=== PATIENT | male | born 1960 | race Caucasian/White ===

== ENCOUNTER → 2017-07-12 16:32 | Outpatient (CLI) | payer OTHER, SELFPAY ==
[2017-07-12 17:58] LABS: Microalbumin,Random Urine 14.6 mg/L (NO RANGE EST.); Microalbumin:Creatinine Ratio 13.9 mg/g CRE (<30 mg/g CRE)
== END ==
PROVIDERS: Family Provider Family Medicine Geriatric Medicine; PCP Family Medicine Geriatric Medicine; Visit Provider Internal Medicine Nephrology
DX: N18.2 Chronic kidney disease, stage 2 (mild) (principal)
CPT/HCPCS: 82043; 82570

== ENCOUNTER → 2017-07-14 15:57 | Outpatient (CLI) | payer OTHER, SELFPAY ==
--- NOTE | 2017-07-14 16:00 | US_ITS ---
STUDY: RENAL ULTRASOUND - COMPLETE REASON FOR EXAM: Male, 57 years old. Chronic renal failure TECHNIQUE: Ultrasound evaluation of the kidneys was performed with real-time and static locke-scale imaging. COMPARISON: None. FINDINGS: RIGHT KIDNEY: Normal location of the right kidney, which is normal in size. The right kidney measures 11.3 x 5.5 x 5.2 cm. There is a normal cortex of the right kidney. The renal cortex measures 1.5 cm. There is no right renal mass or cyst. There are no right renal calculi. There is no right hydronephrosis. DISTAL RIGHT URETER: There is non-visualization of the distal right ureter. There is no demonstrated right ureterovesical junction calculus. There is a visualized right ureteral jet. LEFT KIDNEY: Normal location of the left kidney, which is normal in size. The left kidney measures 11.2 x 4.6 x 5.6 cm. There is a normal cortex of the left kidney. The renal cortex measures 1.4 cm. There is no left renal mass or cyst. There are no left renal calculi. There is no left hydronephrosis. DISTAL LEFT URETER: There is non-visualization of the distal left ureter. There is no demonstrated left ureterovesical junction calculus. There is a visualized left ureteral jet. BLADDER: There is a normal wall thickness of the distended urinary bladder. There is no demonstrated mass within the urinary bladder. There are no demonstrated bladder calculi. US/Kidney and Bladder IMPRESSION: Normal ultrasound of the kidneys and urinary bladder. Electronically Signed: Farhad Sanchez MD at 18:14 EST , Service support ,
== END ==
PROVIDERS: Family Provider Family Medicine Geriatric Medicine; PCP Family Medicine Geriatric Medicine; Visit Provider Internal Medicine Nephrology
DX: N18.2 Chronic kidney disease, stage 2 (mild) (principal)
CPT/HCPCS: 76770

== ENCOUNTER → 2017-08-16 16:42 | Outpatient (CLI) | payer OTHER, SELFPAY ==
--- NOTE | 2017-08-16 | LES_PTH ---
PATIENT: MONICA AHMADI LOC: [facility] U#:[id number] AGE/SX: 64/M ROOM: RE08/16/[address]: Dr. Júnior Armstrong MD : [id number] BED: DIS: SPEC #: [id number] RECD: 08/17/17 08:00 STATUS: BROOKLYNN MANN #: [id number] JADA: 08/16/17 00:[address]: Júnior Armstrong Chi DEPT: SURGICAL PATHOLOGY RECD BY: Rohan Sommers Tissues: Skin of buttock, NOS Procedures: Surgery Specimen Level IV HEADER OPERATION: Not noted PRE-OP DIAGNOSIS: Right buttock lesion TISSUE SUBMITTED: Right buttock MICROSCOPIC DIAGNOSIS Right buttock lesion, shave biopsy: Benign verrucous keratosis with focal seborrheic keratosis-like features and hyperkeratosis. Negative for malignancy. SJ:indy 08/18/17 MICROSCOPIC DESCRIPTION Slides are reviewed. GROSS DESCRIPTION Received in fixative is one container labeled with the patient's name and designated right lower buttock cheek. The specimen consists of a light barreto shave biopsy of skin measuring 2 x 0.8 x 0.1 cm. The specimen is inked, bisected and totally submitted in one cassette. / AM:indy 08/17/17 TC:5 CPT: 67770
== END ==
PROVIDERS: Family Provider Family Medicine Geriatric Medicine; PCP Family Medicine Geriatric Medicine; Visit Provider Family Medicine Geriatric Medicine
DX: L98.9 Disorder of the skin and subcutaneous tissue, unspecified (principal); R68.83 Chills (without fever)
CPT/HCPCS: 87633; 88305

== ENCOUNTER → 2017-08-21 16:08 | Outpatient (CLI) | payer OTHER, SELFPAY ==
[2017-08-21 17:17] LABS: Absolute Lymphocyte Count 1.98 X10^3/ul (0.83-4.51); Absolute Neutrophil Count 7.5 X10^3/uL (2.0-7.7); Basophil# 0.02 X10^3/uL; Basophil% 0.2 % (0-1); Eosinophil# 0.01 X10^3/uL; Eosinophils% 0.1 % (0-5); Hematocrit 45.6 % (40-54); Hemoglobin 15.3 g/dl (13.0-16.5); Lymphocyte # 1.98 X10^3/ul (4.0); Lymphocyte % 18.6 % (19-41); Mean Corp Hgb Conc 33.6 g/gl (32-36); Mean Corpuscular Hgb 30.8 pg (27.0-32.0); Mean Corpuscular Volume 91.8 fL (80-94); Mean Platelet Vol. 10.9 fl (6.2-12.0); Monocyte# 0.99 X10^3/uL; Monocyte% 9.3 % (0-10); Neutrophil # 7.53 X10^3/uL (2.7-7.7); Neutrophil % 70.7 % (47-70); Platelet Count 241 K/mm3 (150-450); RBC Distribution Width CV 12.3 % (11.6-14.6); RBC Distribution Width SD 40.5 fl (35.1-43.9); Red Blood Count 4.97 M/mm3 (4.6-6.2); White Blood Count 10.7 K/mm3 (4.4-11.0)
[2017-08-21 17:24] LABS: ALB/GLOB Ratio 1.1 RATIO (0.9-2.4); AST(SGOT) 21 U/L (15-37); Alanine Aminotransfer ALT/SGPT 65 U/L (16-61); Albumin, Serum 3.8 g/dL (3.2-5.0); Alkaline Phosphatase 137 U/L (45-117); Anion Gap 10 (5-15); BUN 23 mg/dL (7-18); BUN/Creat Ratio 19.3 RATIO (10-20); Calcium,Total 8.3 mg/dL (8.5-10.1); Chloride 107 mmol/L (98-107); Creatinine, Serum 1.19 mg/dL (0.70-1.30); EST Glomerular Filtration Rate 67 mL/min (>60); Est Glom Filt Rate - Afr Amer 82 mL/min (>60); Globulin 3.5 g/dL (2.2-4.2); Glucose 177 mg/dL (74-106); Potassium 4.1 mmol/L (3.5-5.1); Protein, Total 7.3 g/dL (6.4-8.2); Sodium Level 142 mmol/L (136-145)
[2017-08-21 17:25] LABS: Vitamin D,25 Hydroxy 22.2 ng/mL (29.95-100.01)
[2017-08-21 17:58] LABS: POSITIVE COUNT NO; POSITIVE DIFFERENTIAL NO; POSITIVE MORPHOLOGY NO
[2017-08-22 09:59] LABS: PSA,Total - Annual Screen 0.42 ng/mL (0.00-4.00)
[2017-08-23 11:15] LABS: Hep C Antibodies <0.1 s/co ratio (0.0-0.9)
== END ==
PROVIDERS: Family Provider Family Medicine Geriatric Medicine; PCP Family Medicine Geriatric Medicine; Visit Provider Family Medicine Geriatric Medicine
DX: E11.9 Type 2 diabetes mellitus without complications (principal); E55.9 Vitamin D deficiency, unspecified; I10 Essential (primary) hypertension; F52.8 Other sexual dysfunction not due to a substance or known physiological condition; Z12.5 Encounter for screening for malignant neoplasm of prostate; Z13.89 Encounter for screening for other disorder
CPT/HCPCS: 36415; 80053; 82306; 84153; 84403; 84443; 85025; 86803; G0103

== ENCOUNTER → 2017-09-27 09:04 | Outpatient (CLI) | payer OTHER, SELFPAY ==
[2017-09-27 13:10] LABS: Absolute Lymphocyte Count 1.86 X10^3/ul (0.83-4.51); Absolute Neutrophil Count 4.2 X10^3/uL (2.0-7.7); Basophil# 0.03 X10^3/uL; Basophil% 0.4 % (0-1); Eosinophil# 0.12 X10^3/uL; Eosinophils% 1.7 % (0-5); Hematocrit 46.6 % (40-54); Hemoglobin 15.2 g/dl (13.0-16.5); Lymphocyte # 1.86 X10^3/ul (4.0); Lymphocyte % 26.5 % (19-41); Mean Corp Hgb Conc 32.6 g/gl (32-36); Mean Corpuscular Volume 91.9 fL (80-94); Monocyte# 0.74 X10^3/uL; Monocyte% 10.5 % (0-10); Neutrophil # 4.24 X10^3/uL (2.7-7.7); Neutrophil % 60.5 % (47-70); POSITIVE COUNT NO; POSITIVE DIFFERENTIAL NO; POSITIVE MORPHOLOGY NO; Platelet Count 210 K/mm3 (150-450); RBC Distribution Width CV 12.6 % (11.6-14.6); RBC Distribution Width SD 42.1 fl (35.1-43.9); Red Blood Count 5.07 M/mm3 (4.6-6.2)
[2017-09-27 13:42] LABS: ALB/GLOB Ratio 1.1 RATIO (0.9-2.4); AST(SGOT) 24 U/L (15-37); Alanine Aminotransfer ALT/SGPT 63 U/L (16-61); Albumin, Serum 3.8 g/dL (3.2-5.0); Alkaline Phosphatase 116 U/L (45-117); Anion Gap 8 (5-15); BUN 23 mg/dL (7-18); BUN/Creat Ratio 19.8 RATIO (10-20); Calcium,Total 8.5 mg/dL (8.5-10.1); Chloride 106 mmol/L (98-107); Creatinine, Serum 1.16 mg/dL (0.70-1.30); EST Glomerular Filtration Rate 69 mL/min (>60); Est Glom Filt Rate - Afr Amer 84 mL/min (>60); Globulin 3.4 g/dL (2.2-4.2); Glucose 89 mg/dL (74-106); Phosphorus 3.2 mg/dL (2.5-4.9); Potassium 4.3 mmol/L (3.5-5.1); Protein, Total 7.2 g/dL (6.4-8.2); Sodium Level 142 mmol/L (136-145); Thyroid Stim Hormone (TSH) 1.39 uIU/mL (0.358-3.74)
== END ==
PROVIDERS: Family Provider Family Medicine Geriatric Medicine; PCP Family Medicine Geriatric Medicine; Visit Provider Internal Medicine Nephrology
DX: N18.2 Chronic kidney disease, stage 2 (mild) (principal); R53.83 Other fatigue
CPT/HCPCS: 36415; 80053; 84100; 84443; 85025

== ENCOUNTER 2017-09-29 13:23 | Emergency (ER) | payer OTHER, SELFPAY ==
[2017-09-29 13:25] VITALS: BP 151/96; PULSE 82; RESP 16; TEMP 36.8; O2SAT 95; BMI 37.3
--- NOTE | 2017-09-29 13:48 | RAD_ITS ---
STUDY: X-RAY - UNILATERAL RIBS ( LEFT ) WITH CHEST REASON FOR EXAM: Male, 57 years old. MID AND LOW LEVEL LATERAL LEFT RIB PAIN TECHNIQUE - RIBS: 4 view(s) of the ribs. TECHNIQUE - CHEST: Single PA view of the chest. COMPARISON: April 26, 2017 FINDINGS - RIBS: Normal visualized ribs without a demonstrated fracture. FINDINGS - CHEST: The lungs are again underexpanded with right basilar mild atelectasis/compression of lung markings.. There is no demonstrated pleural abnormality. Normal size heart. Normal mediastinum and evaristo. Normal visualized pulmonary arteries. Normal visualized aortic arch and descending thoracic aorta. Normal visualized thoracic spine. Normal visualized ribs, clavicles, and shoulders. There is no demonstrated abnormality of the visualized soft tissue structures of the upper abdomen. RAD/Ribs Uni Min 3V w/PA Chest IMPRESSION: RIBS: Normal x-ray examination of the ribs. CHEST: No acute disease is demonstrated. Electronically Signed: Serenity Meade MD at 14:45 EDT , Service support ,
--- NOTE | 2017-09-29 15:01 | ED.DCSUM_ITS ---
- ER Visit Summary Date of Service: 09/29/17 Chief Complaint: Chest pain History of Present Illness: The patient is a [address] Armstrong. He reports that he was on his riding lawnmower and leaning to the left continuous pickling line pickler a stick. His left lower ribs were against the rail of the car and he heard a pop. States that since that time he has had a sharp pain is 10 out of 10 at worst and 8 out of 10 currently. Is worsened by laying down or bending over. He is taken Aleve with minimal relief. States it is relieved by rest. He reports he feels mildly short of breath at times when the pain is so severe that it seems to take his breath away. Physical Examination: Vitals: Stable. Afebrile. General: Well-nourished and well-developed. Head: Normocephalic atraumatic. Neck: Supple, no lymphadenopathy. No JVD. Nontender. Cardiovascular: Regular rate and rhythm. No murmurs. Respiratory: No respiratory distress. Clear to auscultation bilaterally. Moderate tenderness palpation over the lower ribs on the left. No contusion. No pain with anterior posterior compression of his chest. Abdominal: Soft, nontender, nondistended, normal bowel sounds. No guarding, rebound, or peritoneal signs. Back: Nontender. Extremities: Nontender, no edema. Skin: Normal color, no rash. Neurologic: Alert and oriented ?3. Cranial nerves II through XII are intact. Normal strength and sensation. Psych: Normal affect. Test Results: Left rib series is negative. Emergency Department Course and Treatment: Patient refused pain medications and is resting comfortably. Treatment Plan: He will be discharged with an incentive spirometer and [place]. Instructed to follow-up Dr. Qureshi in 1 week if not improving. Return to the emergency department for any worsening symptoms. Disposition: To home in improved and stable condition. Impression: 1. Rib contusions on left. This note was generated with [employer] dictation software. It may contain incorrect words, spelling, and punctuation that were not noted in review of the chart prior to signing ED Disposition - Plan for ED Patient: Disposition: Home or Assisted Living Chief Complaint: Chest Other Instructions: ED Contusion Vs Minor Fx Rib Prescriptions: Hydrocodone/Acetaminophen [[place] 5-325 Tablet] 1 - 2 each PO 4X/DAY PRN PRN 5 Days #20 tablet PRN Reason: Pain Referrals: Júnior Armstrong Chi, MD [Primary Care Provider] - 1 Week if not improving
[2017-09-29 15:14] VITALS: PULSE 79; RESP 17; O2SAT 100
== END 2017-09-29 15:14 | disposition home or self-care (01) ==
PROVIDERS: Emergency Provider Emergency Medicine; Family Provider Family Medicine Geriatric Medicine; PCP Family Medicine Geriatric Medicine
DX: S20.212A Contusion of left front wall of thorax, initial encounter (principal); X50.1XXA Overexertion from prolonged static or awkward postures, initial encounter; Y93.H2 Activity, gardening and landscaping; Y92.9 Unspecified place or not applicable; Y99.9 Unspecified external cause status; E11.9 Type 2 diabetes mellitus without complications; I10 Essential (primary) hypertension; Z79.01 Long term (current) use of anticoagulants; Z79.899 Other long term (current) drug therapy; Z86.73 Personal history of transient ischemic attack (TIA), and cerebral infarction without residual deficits
CPT/HCPCS: 71101; 99282

== ENCOUNTER 2017-12-12 18:45 | Emergency (ER) | payer OTHER, SELFPAY ==
[2017-12-12] VITALS (8 sets, daily range): BP systolic 114–142; BP diastolic 74–96; PULSE 59–81; RESP 13–19; TEMP 36.6; O2SAT 92–97; BMI 37.2
--- NOTE | 2017-12-12 19:20 | CT_ITS ---
STUDY: CT BRAIN WITHOUT CONTRAST REASON FOR EXAM: Male, 57 years old. Blurred vision. Loss of balance and headache beginning tonight. Similar episode 5 days ago. History of CVA. RADIATION DOSAGE (If Supplied By Facility): CTDIvol = ( 44.99 ) mGy, DLP = ( 829.85 ) mGycm TECHNIQUE: Transaxial CT imaging of the brain was performed without administration of intravenous contrast material. Individualized dose optimization techniques were used for this CT. COMPARISON: May 03, 2017. FINDINGS: Normal soft tissue structures. Normal calvarium. Normal size ventricles and extra-axial spaces for the patient's age. There is a remote right occipital lobe infarct. There is a minimal infarct along the inferior aspect of the left occipital lobe. Question remote right thalamic lacunar infarct. Normal basal ganglia and left thalamus. Normal brainstem. Normal cerebellum. There is no intracranial hemorrhage. There are no findings of an acute ischemic infarction. Normal visualized paranasal sinuses. CT/Brain/Head without Contrast IMPRESSION: Old infarcts without evidence of acute intracranial or calvarial abnormality. There is no major interval change. Electronically Signed: Donovan Quiroz DO at 19:55 EDT Tel [phone], Service support ,
--- NOTE | 2017-12-12 19:20 | EKG12_ITS ---
Test Reason : HEADACHE Blood Pressure : / mmHG Vent. Rate : 068 BPM Atrial Rate : 068 BPM P-R Int : 178 ms QRS Dur : 124 ms QT Int : 420 ms P-R-T Axes : 020 -37 018 degrees QTc Int : 446 ms Normal sinus rhythm Left axis deviation Left ventricular hypertrophy with QRS widening Abnormal ECG Confirmed by PENNY MEDINA, URSULA ([id number]), tape editor ALEX ASHTON ([id number]) on 12/14/2017 11:50:15 AM Referred By: SHIRA Confirmed By:URSULA FRANCIS MD
[2017-12-12] MEDS: Ondansetron 4 MG/2 ML Vial IV (19:36)
[2017-12-12] MEDS: Morphine 4 MG/ML Syringe IV (19:36)
[2017-12-12] MEDS: 0.9% Normal Saline 1,000 ML 100 ML IV (19:36)
[2017-12-12 19:41] LABS: Absolute Lymphocyte Count 2.48 X10^3/ul (0.83-4.51); Absolute Neutrophil Count 5.3 X10^3/uL (2.0-7.7); Basophil# 0.02 X10^3/uL; Basophil% 0.2 % (0-1); Eosinophil# 0.33 X10^3/uL; Eosinophils% 3.7 % (0-5); Hematocrit 47.9 % (40-54); Hemoglobin 15.5 g/dl (13.0-16.5); Lymphocyte # 2.48 X10^3/ul (4.0); Lymphocyte % 27.6 % (19-41); Mean Corp Hgb Conc 32.4 g/gl (32-36); Mean Corpuscular Hgb 29.9 pg (27.0-32.0); Mean Corpuscular Volume 92.5 fL (80-94); Mean Platelet Vol. 10.7 fl (6.2-12.0); Monocyte% 8.9 % (0-10); Neutrophil # 5.33 X10^3/uL (2.7-7.7); Neutrophil % 59.3 % (47-70); Platelet Count 225 K/mm3 (150-450); RBC Distribution Width CV 13.5 % (11.6-14.6); RBC Distribution Width SD 45.1 fl (35.1-43.9); Red Blood Count 5.18 M/mm3 (4.6-6.2)
[2017-12-12 19:48] LABS: Partial Thromboplast Time 29.2 Seconds (24.1-36.2); Prothrombin Time (Protime)PT. 13.5 SECONDS (11.7-14.9)
[2017-12-12 19:51] LABS: POSITIVE COUNT NO; POSITIVE DIFFERENTIAL NO; POSITIVE MORPHOLOGY NO
[2017-12-12 19:52] LABS: Anion Gap 4 (5-15); BUN 24 mg/dL (7-18); BUN/Creat Ratio 17.5 RATIO (10-20); Calcium,Total 8.9 mg/dL (8.5-10.1); Chloride 105 mmol/L (98-107); Creatinine, Serum 1.37 mg/dL (0.70-1.30); EST Glomerular Filtration Rate 57 mL/min (>60); Est Glom Filt Rate - Afr Amer 69 mL/min (>60); Estimated Creatinine Clearance 56.96 ml/min; Glucose 139 mg/dL (74-106); Potassium 4.2 mmol/L (3.5-5.1); Sodium Level 140 mmol/L (136-145)
[2017-12-12 20:01] LABS: Bedside Glucose 100 mg/dL (70-110)
--- NOTE | 2017-12-12 21:08 | CT_ITS ---
STUDY: CTA NECK WITH CONTRAST REASON FOR EXAM: Male, 57 years old. Headache. Blurred vision. RADIATION DOSAGE (If Supplied By Facility): CTDIvol = ( 18.42 ) mGy, DLP = ( 755.97 ) mGycm TECHNIQUE: CT angiography with multi-detector data acquisition was performed from the aortic arch to the skull base following intravenous administration of 100ML ml of Isovue 370 contrast. MIP images were reconstructed from the axial data set. Post-processing of the angiographic images was performed, with multiplanar reformation and 3D reconstruction. Individualized dose optimization techniques were used for this CT. COMPARISON: None. FINDINGS: AORTIC ARCH: Minimal atherosclerotic changes of the aortic arch. Normal origins of the brachiocephalic, left common carotid, and left subclavian arteries. RIGHT CAROTID ARTERIES: Normal right common carotid artery (CCA). Normal right common carotid bulb. Normal origin of the right internal carotid (ICA) artery without a hemodynamically significant stenosis. Normal visualized cervical portion of the right internal carotid artery. Normal origin of the right external carotid artery (ECA). LEFT CAROTID ARTERIES: Normal left common carotid artery (CCA). There is a small focus of calcification in the left carotid bulb without stenosis. Normal origin of the left internal carotid (ICA) artery without a hemodynamically significant stenosis. Normal visualized cervical portion of the left internal carotid artery. Normal origin of the left external carotid artery (ECA). VERTEBRAL ARTERIES: Normal bilateral vertebral arteries. CT/CTA Neck W/WO Contrast IMPRESSION: Essentially normal bilateral cervical carotid and vertebral arteries. Electronically Signed: Donovan Quiroz DO at 22:37 EDT Tel [phone], Service support ,
--- NOTE | 2017-12-12 21:08 | CT_ITS ---
STUDY: CTA OF THE BRAIN REASON FOR EXAM: Male, 57 years old. Headache. Blurred vision. RADIATION DOSAGE (If Supplied By Facility): CTDIvol = ( 18.42 ) mGy, DLP = ( 755.97 ) mGycm TECHNIQUE: CT angiography was performed with a multi-detector CT scanner. Data acquisition was obtained from the skull base through the vertex following intravenous administration of 100 ml of Isovue 37. MIP images were reconstructed from the axial data set. Post-processing of the angiographic images was performed, with multiplanar reformation and 3D reconstruction. Individualized dose optimization techniques were used for this CT. COMPARISON: None. FINDINGS: Normal bilateral petrous carotid arteries. There is calcified plaque formation of the right cavernous carotid artery, without a cross-sectional luminal stenosis. There is calcified plaque formation of the left cavernous carotid artery, with a mild stenosis (less than 50%). Normal right A1 segments of the anterior cerebral artery. Normal left A1 segments of the anterior cerebral artery. Normal intact anterior communicating artery (ACOM). Normal bilateral A2 segments of the anterior cerebral arteries. Normal right M1 and M2 segments of the middle cerebral arteries, with a normal M1 bifurcation. Small focus of calcification along the distal M1 segment without stenosis. Normal left M1 and M2 segments of the middle cerebral arteries, with a normal M1 bifurcation. There is non-visualization of the right posterior communicating artery (PCOM). There is non-visualization of the left posterior communicating artery (PCOM). Normal bilateral vertebral arteries. There is focal narrowing of the proximal basilar artery. More normal diameter distally. There is no evidence of plaque or other indication for the narrowing. The visualized bilateral superior cerebellar (SCA) arteries are normal. Normal bilateral P1, P2 and visualized P3 segments of the posterior cerebral arteries. There is no demonstrated aneurysm of the e[place] of Pimentel. There is no demonstrated abnormality of the visualized brain. CT/CTA Head W/WO Contrast IMPRESSION: 1. Normal e[place] of [place]iment[place] without a demonstrated aneurysm. 2. 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 The distal aorta is unremarkable. 3. Hemodynamically insignificant plaque in the left cavernous carotid. Electronically Signed: Donovan Quiroz DO at 22:32 EDT Tel [phone], Service support ,
[2017-12-12] MEDS: DiphenhydrAMINE 50 MG/ML Syringe 25 MG IV (21:35)
[2017-12-12] MEDS: 0.9% Normal Saline 1,000 ML 999 ML IV (21:38)
[2017-12-12] MEDS: Ketorolac 30 MG/ML Syringe IV (21:38)
[2017-12-12] MEDS: Metoclopramide 10 MG/2 ML Vial IV (21:38)
--- NOTE | 2017-12-12 23:00 | PCM.HP.STD ---
History of Present Illness Date of Admission: 12/12/17 The patient is a 57 year old M [] afib w/ occipital CVA, blind x 3 weeks, improved, 6 days prior, vision blurred 6-8 minutes, but never returned to his normal, off balance. swishing in his ears, R>L when he turns his head L hemianopsia, L superior quandrant is chronic Neurology Past Medical History Past Medical History (Chronic Problems): Chronic Problems (Last Updated 06/12/17 @ 17:10 by Lola Mitchell) Non-rheumatic tricuspid valve insufficiency (Chronic) Nonrheumatic mitral valve insufficiency (Chronic) Stroke determined by clinical assessment (Chronic) Diabetes mellitus (Chronic) Chronic GERD (Chronic) HTN (hypertension) (Chronic) Medical History: Medical History (Last Updated 06/12/17 @ 17:10 by Lola Mitchell) Stroke determined by clinical assessment (Chronic) I63.9 Diabetes mellitus (Chronic) E11.9 Chronic GERD (Chronic) K21.9 Hyperlipidemia (Acute) E78.5 Paroxysmal atrial fibrillation (Acute) I48.0 HTN (hypertension) (Chronic) I10 Asthma J45.909 CVA (cerebral vascular accident) I63.9 GERD (gastroesophageal reflux disease) K21.9 Type 2 diabetes mellitus E11.9 Afib (Inactive) I48.91 Asthma (Inactive) J45.909 Blurry vision (Inactive) H53.8 Diabetes (Inactive) E11.9 Allergies No Known Allergies Allergy (Verified 12/12/17 18:48) Home Medications: Ambulatory Orders Medication Instructions Recorded Albuterol IH (ProAir) [Proair Hfa 1 - 2 puff INHALATION Q4H PRN PRN 12/04/14 (SP)Vent Pts] Montelukast [Singulair] 10 mg PO DAILY 12/04/14 Atorvastatin Calcium [Lipitor] 80 mg PO QHS 10/22/16 apixaban 5 mg tablet 5 mg PO BID 06/12/17 empagliflozin 25 mg tablet 25 mg PO QDAY 09/25/17 linagliptin 5 mg tablet 5 mg PO QDAY 09/25/17 losartan 50 mg tablet 50 mg PO QDAY 09/25/17 Budesonide/Formoterol 160/4.5 2 puff INHALATION BID 12/12/17 [Symbicort 160/4.5 Mcg Inhaler (SP)] buPROPion SR [Wellbutrin SR (150mg 150 mg PO BID 12/12/17 tablets)] Surgical History: Surgical History (Last Reviewed 09/25/17 @ 15:40 by Nida Rivera) History of arthroscopic knee surgery Z98.890 Bilateral Surgical History: - - right and left knee surgery. Smoking Status: Never smoker - *Family History Maternal Family History: Family History (Last Reviewed 09/25/17 @ 15:40 by Nida Rivera) Mother Heart disease Father Heart disease Diabetes History Items: Heart Disease Paternal Family History: Family History (Last Reviewed 09/25/17 @ 15:40 by Nida Rivera) Mother Heart disease Father Heart disease Diabetes History Items: Heart Disease, - - father with a pacemaker. - Physical Exam Vital Signs Temp Pulse Resp BP Pulse Ox 97.8 F 59 L 14 114/74 93 12/12/17 18:46 12/12/17 22:37 12/12/17 22:37 12/12/17 22:37 12/12/17 22:37 Oxygen Delivery Method Room Air Weight: 237 lb 14.06 oz Body Mass Index (BMI) 37.2 Finger Stick Blood Glucose 100 Laboratory Tests Past 24 Hrs 12/12/17 12/12/17 12/12/17 18:56 18:56 18:56 WBC 9.0 RBC 5.18 Hgb 15.5 Hct 47.9 MCV 92.5 MCH 29.9 MCHC 32.4 RDW 13.5 RDW Differential 45.1 H Plt Count 225 MPV 10.7 Immature Gran % (Auto) 0.300 Neut % (Auto) 59.3 Lymph % (Auto) 27.6 [place] % (Auto) 8.9 Eos % (Auto) 3.7 Baso % (Auto) 0.2 Absolute Neuts (auto) 5.3 Absolute Lymphs (auto) 2.48 Total Counted Not Reportable PT 13.5 INR 1.0 APTT 29.2 Sodium 140 Potassium 4.2 Chloride 105 Carbon Dioxide 31.0 Anion Gap 4 L BUN 24 H Creatinine 1.37 H Estim Creat Clear Calc 56.96 Est GFR (MDRD) Af Amer 69 Est GFR (MDRD) Non-Af 57 L BUN/Creatinine Ratio 17.5 Glucose 139 H Calcium 8.9 Troponin I < 0.015 POC Glucose 07/31/18 19:54 POC Glucose 100 Assessment/Plan All Active Problems (Last Updated 06/12/17 @ 17:10 by Lola Mitchell) Fatigue (Acute) Hyperlipidemia (Acute) Paroxysmal atrial fibrillation (Acute)
--- NOTE | 2017-12-13 01:08 | ED.DCSUM_ITS ---
- ER Visit Summary Date of Service: 12/13/17 Chief Complaint: Blurred vision History of Present Illness: The patient is a [address] Becky Armstrong. Patient reports approximately 1 year ago he had a stroke that left him unable to see for approximately 3 weeks. This improved and he had a residual left hemianopsia. Reports that 6 days ago he had an episode where his vision became very blurred and he was unable to see anything last approximately 6-8 minutes. This improved, but has not resolved. This is similar to when he had a stroke previously. He reports that he feels off balance. He has not had any vertigo or slurred speech. No numbness or weakness. He does report that when he turns his head he hears a swishing noise in his ears bilaterally right greater than left. Patient also reports that he has a headache it is frontal in location and began at the same time. Is gradually gotten worse. Says sharp, throbbing pain Zeta 10 severity. Is worsened by nothing relieved by nothing. He has been nauseated times. However, he has not vomited. No photophobia. No other complaints. Physical Examination: Vitals: Stable. Afebrile. General: Well-nourished and well-developed. Head: Normocephalic atraumatic. Neck: Supple, no lymphadenopathy. No JVD. Nontender. Cardiovascular: Regular rate and rhythm. No murmurs. Respiratory: No respiratory distress. Clear to auscultation bilaterally. Abdominal: Soft, nontender, nondistended, normal bowel sounds. No guarding, rebound, or peritoneal signs. Back: Nontender. Extremities: Nontender, no edema. Skin: Normal color, no rash. Neurologic: Alert and oriented ?3. Cranial nerves II through XII are intact other than a left hemianopsia. Normal strength and sensation. Psych: Normal affect. Test Results: CBC is normal. Chem-7 is more for BUN of 24, creatinine 1.37, glucose 139. Coags are normal. Troponin is negative. EKG is sinus at 68 with nonspecific intraventricular conduction delay. Is unchanged from September of this year. CT head shows no acute changes. There is a remote right occipital infarct. Minimal infarct in the inferior left occipital lobe. CT of the brain shows normal zuni of Pimentel. There is a 50% stenosis of the proximal basilar artery. CT of the neck shows essentially normal carotids and vertebrals. Emergency Department Course and Treatment: Patient was initially treated with morphine and Zofran IV. He got no relief from his headache. He was then given dose of Toradol, Reglan, and Benadryl IV. His headache is much improved. He was given Plavix p.o. after discussion with Dr. Moreno. Treatment Plan: Patient was discussed with Dr. Castillo. He has the patient be transferred to a tertiary care center. Patient was discussed with Dr. Moreno, and interventional neuroradiologist at [facility] who would be happy to see him tomorrow. He was then discussed with the hospitalist to admit him. Disposition: Transferred in stable condition. Impression: 1. Left hemianopsia. 2. 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 3. Coagulopathy on Eliquis. This note was generated with [employer] dictation software. It may contain incorrect words, spelling, and punctuation that were not noted in review of the chart prior to signing ED Disposition - Plan for ED Patient: Chief Complaint: Headache Referrals: Júnior Armstrong Chi, MD [Primary Care Provider] -
--- NOTE | 2017-12-13 01:11 | NURSING ---
ACCEPTED TO [facility] BY DR. MORALES ROOM [id number] REPORT [id number]
[2017-12-13] MEDS: Clopidogrel Bisulfate 300 MG Tablet PO (01:26)
== END 2017-12-13 01:49 | disposition short-term general hospital (02) ==
LOC: ED 19:16
PROVIDERS: Emergency Provider Emergency Medicine; Family Provider Family Medicine Geriatric Medicine; PCP Family Medicine Geriatric Medicine
DX: H53.47 Heteronymous bilateral field defects (principal); I65.1 Occlusion and stenosis of basilar artery; D68.9 Coagulation defect, unspecified; I48.91 Unspecified atrial fibrillation; E11.9 Type 2 diabetes mellitus without complications; I10 Essential (primary) hypertension; Z79.01 Long term (current) use of anticoagulants; Z79.899 Other long term (current) drug therapy; Z86.73 Personal history of transient ischemic attack (TIA), and cerebral infarction without residual deficits
CPT/HCPCS: 70450; 70496; 70498; 80048; 82962; 84484; 85025; 85610; 85730; 93005; 96361; 96374; 96375; 99284; J7030; Q9967; A4216; J2405

== ENCOUNTER → 2018-04-03 15:45 | Outpatient (CLI) | payer SELFPAY ==
[2017-12-12 18:46] VITALS: BMI 37.2
[2018-04-03 17:20] LABS: Absolute Lymphocyte Count 2.04 X10^3/ul (0.83-4.51); Absolute Neutrophil Count 4.1 X10^3/uL (2.0-7.7); Basophil# 0.04 X10^3/uL; Basophil% 0.6 % (0-1); Eosinophil# 0.18 X10^3/uL; Eosinophils% 2.6 % (0-5); Hematocrit 48.1 % (40-54); Hemoglobin 16.1 g/dl (13.0-16.5); Lymphocyte # 2.04 X10^3/ul (4.0); Lymphocyte % 29.4 % (19-41); Mean Corp Hgb Conc 33.5 g/gl (32-36); Mean Corpuscular Hgb 29.9 pg (27.0-32.0); Mean Corpuscular Volume 89.2 fL (80-94); Mean Platelet Vol. 11.3 fl (6.2-12.0); Monocyte# 0.52 X10^3/uL; Monocyte% 7.5 % (0-10); Neutrophil # 4.13 X10^3/uL (2.7-7.7); Neutrophil % 59.6 % (47-70); Platelet Count 244 K/mm3 (150-450); RBC Distribution Width CV 12.8 % (11.6-14.6); RBC Distribution Width SD 41.9 fl (35.1-43.9); Red Blood Count 5.39 M/mm3 (4.6-6.2); White Blood Count 6.9 K/mm3 (4.4-11.0)
[2018-04-03 17:22] LABS: POSITIVE COUNT NO; POSITIVE DIFFERENTIAL NO; POSITIVE MORPHOLOGY NO
[2018-04-03 17:42] LABS: ALB/GLOB Ratio 1.2 RATIO (0.9-2.4); AST(SGOT) 26 U/L (15-37); Alanine Aminotransfer ALT/SGPT 52 U/L (16-61); Albumin, Serum 3.9 g/dL (3.2-5.0); Alkaline Phosphatase 156 U/L (45-117); Anion Gap 11 (5-15); BUN 19 mg/dL (7-18); BUN/Creat Ratio 14.8 RATIO (10-20); Calcium,Total 8.5 mg/dL (8.5-10.1); Chloride 108 mmol/L (98-107); Creatinine, Serum 1.28 mg/dL (0.70-1.30); EST Glomerular Filtration Rate 62 mL/min (>60); Est Glom Filt Rate - Afr Amer 75 mL/min (>60); Globulin 3.3 g/dL (2.2-4.2); Glucose 106 mg/dL (74-106); Potassium 3.8 mmol/L (3.5-5.1); Protein, Total 7.2 g/dL (6.4-8.2); Sodium Level 143 mmol/L (136-145); Thyroid Stim Hormone (TSH) 2.15 uIU/mL (0.358-3.74)
== END ==
PROVIDERS: Family Provider Family Medicine Geriatric Medicine; PCP Family Medicine Geriatric Medicine; Visit Provider Family Medicine Geriatric Medicine
DX: E11.9 Type 2 diabetes mellitus without complications (principal); I10 Essential (primary) hypertension; F52.8 Other sexual dysfunction not due to a substance or known physiological condition
CPT/HCPCS: 36415; 80053; 84403; 84443; 85025

== ENCOUNTER 2018-04-09 13:06 | Observation (INO) | payer OTHER, SELFPAY ==
[2018-04-09] VITALS (13 sets, daily range): BP systolic 134–164; BP diastolic 81–115; PULSE 70–98; RESP 15–20; TEMP 36.4–37.2; O2SAT 94–98; BMI 36.1; BMI 35.5; BMI 35.6
[2018-04-09 13:16] LABS: Bedside Glucose 125 mg/dL (70-110)
--- NOTE | 2018-04-09 13:17 | CT_ITS ---
STUDY: CT BRAIN WITHOUT CONTRAST REASON FOR EXAM: Male, 57 years old. Stroke and dizziness. RADIATION DOSAGE (If Supplied By Facility): CTDIvol = ( 60.81 ) mGy, DLP = ( 1089.89 ) mGycm TECHNIQUE: Transaxial CT imaging of the brain was performed without administration of intravenous contrast material. Individualized dose optimization techniques were used for this CT. COMPARISON: 12/12/2017. FINDINGS: Normal soft tissue structures. Normal calvarium. No change. No definite acute abnormality. 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 Stable lacunar infarcts in the right basal ganglia and thalamus. Otherwise normal size ventricles and extra-axial spaces for the patient's age. Otherwise normal white matter tracts of the cerebral hemispheres. Otherwise negative basal ganglia and thalami. Normal brainstem. Normal cerebellum. There is no intracranial hemorrhage. There are no findings of an acute ischemic infarction. Normal visualized paranasal sinuses. CT/Brain/Head without Contrast IMPRESSION: No change or acute abnormality. 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 N.B. : The above information has been verbally conveyed by Farhad Sanchez MD to Dr. Tom MD, on 04/09/2018 13:45:01 (ET). Electronically Signed: Farhad Sanchez MD at 13:41 EST , Service support ,
--- NOTE | 2018-04-09 13:17 | EKG12_ITS ---
Test Reason : STROKE ALERT Blood Pressure : / mmHG Vent. Rate : 088 BPM Atrial Rate : 088 BPM P-R Int : 184 ms QRS Dur : 130 ms QT Int : 378 ms P-R-T Axes : 023 -40 036 degrees QTc Int : 457 ms Normal sinus rhythm Left axis deviation Left ventricular hypertrophy with QRS widening Poor R wave progression Abnormal ECG Confirmed by PENNY MEDINA, URSULA ([id number]), features editor ALIX GOODMAN ([id number]) on 04/11/2018 3:54:33 PM Referred By: IGLESIA Confirmed By:URSULA FRANCIS MD
--- NOTE | 2018-04-09 13:18 | CM.ED ---
Social Work Note Stroke alert called in triage. Introduced self and role to pt and . Decline needs at this time. Assigned room in ED, SW will check once imaging is complete. Pt does have a hx of a stroke and onset of symptoms was 45 minutes ago. Kelly Rodríguez, PRINCIPAL ANDROID DEVELOPER, DANITA
[2018-04-09 13:41] LABS: Absolute Lymphocyte Count 2.09 X10^3/ul (0.83-4.51); Absolute Neutrophil Count 4.9 X10^3/uL (2.0-7.7); Basophil# 0.04 X10^3/uL; Basophil% 0.5 % (0-1); Eosinophil# 0.17 X10^3/uL; Eosinophils% 2.2 % (0-5); Hemoglobin 16.5 g/dl (13.0-16.5); Lymphocyte # 2.09 X10^3/ul (4.0); Lymphocyte % 26.5 % (19-41); Mean Corp Hgb Conc 33.7 g/gl (32-36); Mean Corpuscular Hgb 30.4 pg (27.0-32.0); Mean Corpuscular Volume 90.4 fL (80-94); Mean Platelet Vol. 10.4 fl (6.2-12.0); Monocyte# 0.68 X10^3/uL; Monocyte% 8.6 % (0-10); Neutrophil # 4.89 X10^3/uL (2.7-7.7); Neutrophil % 61.9 % (47-70); Platelet Count 241 K/mm3 (150-450); RBC Distribution Width CV 12.8 % (11.6-14.6); RBC Distribution Width SD 41.9 fl (35.1-43.9); Red Blood Count 5.42 M/mm3 (4.6-6.2); White Blood Count 7.9 K/mm3 (4.4-11.0)
[2018-04-09 13:42] LABS: POSITIVE COUNT NO; POSITIVE DIFFERENTIAL NO; POSITIVE MORPHOLOGY NO; Prothrombin Time (Protime)PT. 13.6 SECONDS (11.7-14.9)
[2018-04-09 13:43] LABS: Partial Thromboplast Time 30.3 Seconds (24.1-36.2)
[2018-04-09 13:49] LABS: Anion Gap 5 (5-15); BUN 21 mg/dL (7-18); BUN/Creat Ratio 14.9 RATIO (10-20); Calcium,Total 8.9 mg/dL (8.5-10.1); Chloride 104 mmol/L (98-107); Creatinine, Serum 1.41 mg/dL (0.70-1.30); EST Glomerular Filtration Rate 55 mL/min (>60); Est Glom Filt Rate - Afr Amer 67 mL/min (>60); Estimated Creatinine Clearance 55.34 ml/min; Glucose 119 mg/dL (74-106); Potassium 3.9 mmol/L (3.5-5.1); Sodium Level 140 mmol/L (136-145)
--- NOTE | 2018-04-09 13:49 | ED.VISSUMM ---
- ER Visit Summary Date of Service: 04/09/18 Chief Complaint: Vertigo and biocular visual disturbance History of Present Illness: The patient is a 57 M with history of type 2 diabetes, hypertension, hypercholesterolemia, paroxysmal atrial fibrillation and posterior stroke who presents with change in vision and vertigo that lasted approximately 15 minutes. He states he did not have loss of vision like he did with prior stroke his symptoms lasted 15 minutes. His vertigo was not positional. He did report nausea. He denied loss of vision, trouble with speech or swallowing. He denied cardiac respiratory symptoms. He denied headache. Please read written note for complete detail Physical Examination: Vital signs are remarkable blood pressure 135/98. NIH is 0. Head is atraumatic normocephalic. Pupils are equal round reactive. Extraocular muscles are intact. TMs are pearly white with landmarks noted. Nares patent with no drainage. Posterior pharynx without erythema or exudate. Uvula is midline. There is no dysphonia or dysphasia. Trachea is midline. There is no stridor with auscultation of the neck. Heart is regular without murmur, gallop or rub. S1 and S2 are normal. Lungs are clear to auscultation with good movement of air bilaterally. Abdomen soft nontender. Patient is alert and oriented ?3. Motor is 5 over 5. Sensory is intact. DTRs are symmetric with no clonus or Babinski sign. Cranial 2 through 12 are intact. Cerebellar testing is normal. Test Results: EKG normal sinus rhythm rate of [address] is normal. Noncontrast CT of the head reveals no acute process. Prior stroke noted. CBC unremarkable. Blood sugar 125. Coags normal. Emergency Department Course and Treatment: Stroke order set was initiated. Spoke with neuro radiologist and neurology. Also spoke with hospitalist Treatment Plan: Further evaluation on PCU Disposition: 23-hour observation PCU Impression: TIA History of diabetes History hypertension History of hypercholesterolemia History of paroxysmal atrial fibrillation History of prior stroke This note was generated with [employer] dictation software. It may contain incorrect words, spelling, and punctuation that were not noted in review of the chart prior to signing ED Disposition - Plan for ED Patient: Chief Complaint: Neuro S/Sx Referrals: Júnior Armstrong Chi, MD [Primary Care Provider] -
--- NOTE | 2018-04-09 14:22 | EKG12_ITS ---
Test Reason : Blood Pressure : / mmHG Vent. Rate : 073 BPM Atrial Rate : 073 BPM P-R Int : 186 ms QRS Dur : 130 ms QT Int : 436 ms P-R-T Axes : 029 -39 004 degrees QTc Int : 480 ms Normal sinus rhythm Left axis deviation Left ventricular hypertrophy with QRS widening Poor R wave progression Abnormal ECG Confirmed by PENNY MEDINA, URSULA ([id number]), editorial project manager ALIX GOODMAN ([id number]) on 04/11/2018 3:35:33 PM Referred By: LARON Confirmed By:URSULA FRANCIS MD
--- NOTE | 2018-04-09 14:22 | ECHOD_ITS ---
Reason For Study: CVA Procedure This was a 2D Doppler, Color Flow transthoracic echocardiogram. Exam performed portable in patient room. Left Ventricle Normal LV size. Left ventricular systolic function is normal. The estimated ejection fraction is 55 %. Stage 1 diastolic dysfunction. No regional wall motion abnormalities noted. Right Ventricle Normal RV size. Normal systolic function. Atria Normal left atrium. Normal right atrium. Mitral Valve Normal mitral valve. Tricuspid Valve Normal tricuspid valve. Aortic Valve Normal aortic valve. Trisinus/trileaflet aortic valve. Pulmonic Valve Normal pulmonic valve. Great Vessels Normal aortic root. The pulmonary artery is normal size. Normal inferior vena cava. Pericardium/Pleural No pericardial effusion. MMode/2D Measurements & Calculations LVIDd: 4.1 cm IVSd: 1.4 cm Ao root diam: 3.8 cm LVIDs: 3.0 cm LVPWd: 0.95 cm LA dimension: 4.6 cm FS: 26.8 % LAV(MOD-bp): 57.9 ml LA A4 area: 18.0 cm2 RA A4 area: 16.6 cm2 LAV(MOD-bp) Indexed: 27.1 ml/m2 LAV(MOD-sp2): 62.0 ml LAV(MOD-sp4): 49.1 ml Time Measurements MV dec time: 0.24 sec Doppler Measurements & Calculations MV E max chuck: 45.7 cm/sec Lat Peak E' Chuck: 4.6 cm/sec Med Peak E' Chuck: 4.1 cm/sec MV A max chuck: 75.1 cm/sec E/E' lat: 10.0 E/E' med: 11.1 MV E/A: 0.61 MV V2 max: 84.8 cm/sec MV P1/2t max chuck: 73.8 cm/sec Ao V2 max: 117.0 cm/sec MV max P.9 mmHg MV P1/2t: 59.5 msec Ao max P.5 mmHg MV V2 mean: 46.5 cm/sec MV dec slope: 363.1 cm/sec2 Ao V2 mean: 70.1 cm/sec MV mean P.0 mmHg MVA(P1/2t): 3.7 cm2 Ao mean P.3 mmHg MV V2 VTI: 22.0 cm Ao V2 VTI: 21.4 cm LV V1 max: 85.3 cm/sec PA V2 max: 86.7 cm/sec LV V1 max P.9 mmHg LV V1 mean P.2 mmHg LV V1 mean: 48.7 cm/sec LV V1 VTI: 16.4 cm Interpretation Summary Normal LV size. Left ventricular systolic function is normal. The estimated ejection fraction is 55 %. Stage 1 diastolic dysfunction. Ordering Physician: Kenyno Arevalo Referring Physician: Júnior Armstrong Chi Performed By: Sea Paul RCS
--- NOTE | 2018-04-09 14:22 | MRI_ITS ---
STUDY: MRI BRAIN WITHOUT CONTRAST REASON FOR EXAM: Male, 57 years old. CVA TECHNIQUE: Standardized multiplanar fat and water weighted pulse sequences were obtained. COMPARISON: CT the brain on April 09, 2018 MRI of the brain on October 14, 2016 FINDINGS: Normal size of the ventricles and extra-axial spaces for the patient's age. Minor periventricular white matter ischemic changes without evidence for acute infarct.. There is an old infarct of the right posterior cerebral and occipital lobes Normal bilateral basal ganglia. Prominent perivascular space in the right posterior thalamus. There is no extra-axial fluid accumulation. Normal flow voids within the major intracranial circulation suggesting patency by spin echo criteria. Normal sella turcica, pituitary gland, infundibular stalk, optic chiasm and hypothalamus. Normal tectal plate and pineal gland. Normal midbrain, nicola and medulla. Normal cerebellum. Normal basal cisterns. Normal bilateral temporal bones. Normal bilateral internal auditory canals. No demonstrated orbital abnormality, within the constraints of a routine brain study. There is minor mucosal thickening of the bilateral maxillary and ethmoid sinuses. Normal calvarium and skull base. Normal visualized soft tissue structures. Normal visualized upper cervical spine. MRI/Brain without Contrast IMPRESSION: Minor periventricular white matter ischemic changes without evidence for acute infarct. Old right posterior temporal and occipital lobe infarcts Electronically Signed: Jamil Ennis MD at 23:13 EST , Service support ,
--- NOTE | 2018-04-09 14:22 | ED.RN ---
PER [facility] AFTER [facility]
--- NOTE | 2018-04-09 15:01 | PCM.HP.STD ---
History of Present Illness Date of Admission: 04/09/18 Chief Complaint: Blurry vision with dizziness The patient is a 57 year old M with history of old right FOLDED CL[employer] TAPER infarct in July 2016 when he had blurry vision and diagnosed paroxysmal A. fib and was started on Eliquis and other medications came to ER with dizziness, blurry vision and feeling like fall/near fall. Patient could not distend on his legs because of dizziness and vertigo. Blurry vision is a chronic problem since July 2016 and has been progressing since then. Patient further said he had seen multiple missile facilities repairer including retina specialist in [facility] but they could not give him diagnosis. The present episode lasted about 15 minutes. The patient denies change in his speech, dysarthria, dysphagia, facial droop or weakness, numbness or tingling on one side of body. In ED, patient had CT head which showed previous old right FOLDED CL[employer] TAPER infarct with encephalomalacia but no acute change. Patient had basic lab workup which showed creatinine 1.41, BUN 21, glucose 119. Patient has history of diabetes and is on oral hypoglycemic agents. Patient denies any cardiac symptoms. EKG in the ER shows normal sinus rhythm with LAD, LVH with QRS widening, QRS 130 ms. Past Medical History Past Medical History (Chronic Problems): Chronic Problems (Last Updated 06/12/17 @ 17:10 by Lola Mitchell) Non-rheumatic tricuspid valve insufficiency (Chronic) Nonrheumatic mitral valve insufficiency (Chronic) Stroke determined by clinical assessment (Chronic) Diabetes mellitus (Chronic) Chronic GERD (Chronic) HTN (hypertension) (Chronic) Medical History: Medical History (Last Updated 06/12/17 @ 17:10 by Lola Mitchell) Stroke determined by clinical assessment (Chronic) I63.9 Diabetes mellitus (Chronic) E11.9 Chronic GERD (Chronic) K21.9 Hyperlipidemia (Acute) E78.5 Paroxysmal atrial fibrillation (Acute) I48.0 HTN (hypertension) (Chronic) I10 Asthma J45.909 CVA (cerebral vascular accident) I63.9 GERD (gastroesophageal reflux disease) K21.9 Type 2 diabetes mellitus E11.9 Afib (Inactive) I48.91 Asthma (Inactive) J45.909 Blurry vision (Inactive) H53.8 Diabetes (Inactive) E11.9 Allergies No Known Allergies Allergy (Verified 12/12/17 18:48) Home Medications: Ambulatory Orders Medication Instructions Recorded Albuterol IH (ProAir) [Proair Hfa 1 - 2 puff INHALATION Q4H PRN PRN 12/04/14 (SP)Vent Pts] Montelukast [Singulair] 10 mg PO QHS 12/04/14 Atorvastatin Calcium [Lipitor] 80 mg PO QHS 10/22/16 apixaban 5 mg tablet 5 mg PO BID 06/12/17 empagliflozin 25 mg tablet 25 mg PO DAILY 09/25/17 linagliptin 5 mg tablet 5 mg PO DAILY 09/25/17 losartan 50 mg tablet 50 mg PO QDAY 09/25/17 Budesonide/Formoterol 160/4.5 2 puff INHALATION BID 12/12/17 [Symbicort 160/4.5 Mcg Inhaler (SP)] buPROPion SR [Wellbutrin SR (150mg 150 mg PO BID 12/12/17 tablets)] Doxycycline [Vibramycin] 100 mg PO BID 04/09/18 Surgical History: Surgical History (Last Reviewed 09/25/17 @ 15:40 by Nida Rivera) History of arthroscopic knee surgery Z98.890 Bilateral Surgical History: - - right and left knee surgery. Smoking Status: Never smoker - *Family History Maternal Family History: Family History (Last Reviewed 09/25/17 @ 15:40 by Nida Rivera) Mother Heart disease Father Heart disease Diabetes History Items: Heart Disease Paternal Family History: Family History (Last Reviewed 09/25/17 @ 15:40 by Nida Rivera) Mother Heart disease Father Heart disease Diabetes History Items: Heart Disease, - - father with a pacemaker. Review of Systems Constitutional: Denies: Chills, Fever, Weight Change Eyes: Reports: Blurred vision, Vision Change. Denies: Cataracts, Conjunctivae Inflammation, Double vision, Drainage, Eyelid Inflammation, Redness HEENT: Denies: Difficulty Hearing, Difficulty Swallowing, Dysphasia, Head Aches, Sinus Congestion, Sinus Drainage Cardiovascular: Denies: Chest Pain, Claudication, Chest Pressure, Chest Tightness, Edema, Palpitations Respiratory: Denies: Cough, Shortness of breath at rest, Sputum production Gastrointestinal: Denies: Abdominal Pain, Constipation, Diarrhea, Nausea, Vomiting Genitourinary: Denies: Dysuria Musculoskeletal: Denies: Joint Pain, Joint Tenderness Skin: Denies: Rash, Wounds Neurological: Reports: Balance problems, Incoordination. Denies: Focal weakness, Numbness, Tingling Psychiatric: Denies: Anxiety, Depression, Homicidal Ideations, Suicidal Ideations Hematologic/ Lymphatic: Denies: Easy Bruising, Easy Bleeding VTE Information - Inpt Only VTE Present on Admission: No VTE Mechan Device Prophylaxis: None Reason prophylaxis not ordered:: Procedure Not Indicated - already on Eliquis - Physical Exam General: Alert, Oriented x3, Cooperative HEENT: Atraumatic, PERRLA, EOMI, Normocephalic Oral: Moist Mucosa Neck: Supple, No JVD, Negative Carotid Bruits Lungs: Clear to auscultation, Normal air movement, No rhonchi, No wheeze, No rales Cardiovascular: Regular rate, Regular Rhythm, Normal S1, Normal S2, No murmurs Abdomen: Bowel Sounds Present, Soft, Non Tender, Non-Distended Extremities: No edema, Capillary Refill Less than 3 Seconds Skin: No rashes, No breakdown Musculoskeletal: No Tenderness to Palpation of Joints or Extremities Neurological: Cranial nerves II-XII grossly intact, Unsteady Gait, - - Loss of field of vision on left upper quadrant; chronic in nature since July 2016. Patchy stroke scale of 1 Psych/Mental Status: Normal Affect, Appropriate Vital Signs Temp Pulse Resp BP Pulse Ox 99 F 75 18 137/95 H 97 04/09/18 14:41 04/09/18 14:41 04/09/18 14:41 04/09/18 14:42 04/09/18 14:41 Oxygen Delivery Method Room Air Weight: 227 lb Body Mass Index (BMI) 35.5 Finger Stick Blood Glucose 125 Laboratory Tests Past 24 Hrs 04/09/18 04/09/18 04/09/18 13:15 13:15 13:15 WBC 7.9 RBC 5.42 Hgb 16.5 Hct 49.0 MCV 90.4 MCH 30.4 MCHC 33.7 RDW 12.8 RDW Differential 41.9 Plt Count 241 MPV 10.4 Immature Gran % (Auto) 0.300 Neut % (Auto) 61.9 Lymph % (Auto) 26.5 Catahoula % (Auto) 8.6 Eos % (Auto) 2.2 Baso % (Auto) 0.5 Absolute Neuts (auto) 4.9 Absolute Lymphs (auto) 2.09 Total Counted Not Reportable PT 13.6 INR 1.0 APTT 30.3 Sodium 140 Potassium 3.9 Chloride 104 Carbon Dioxide 31.0 Anion Gap 5 BUN 21 H Creatinine 1.41 H Estim Creat Clear Calc 55.34 Est GFR (MDRD) Af Amer 67 Est GFR (MDRD) Non-Af 55 L BUN/Creatinine Ratio 14.9 Glucose 119 H Calcium 8.9 Troponin I < 0.015 TSH 04/09/18 14:42 WBC RBC Hgb Hct MCV MCH MCHC RDW RDW Differential Plt Count MPV Immature Gran % (Auto) Neut % (Auto) Lymph % (Auto) Catahoula % (Auto) Eos % (Auto) Baso % (Auto) Absolute Neuts (auto) Absolute Lymphs (auto) Total Counted PT INR APTT Sodium Potassium Chloride Carbon Dioxide Anion Gap BUN Creatinine Estim Creat Clear Calc Est GFR (MDRD) Af Amer Est GFR (MDRD) Non-Af BUN/Creatinine Ratio Glucose Calcium Troponin I Pending TSH Pending POC Glucose 04/09/18 13:13 POC Glucose 125 H Assessment/Plan All Active Problems (Last Updated 06/12/17 @ 17:10 by Lola Mitchell) Fatigue (Acute) Hyperlipidemia (Acute) Paroxysmal atrial fibrillation (Acute) The patient is a 57 year old M with history of old right FOLDED CL[employer] TAPER infarct in July 2016 when he had blurry vision and diagnosed paroxysmal A. fib and was started on Eliquis and other medications came to ER with dizziness, blurry vision and feeling like fall/near fall. Patient could not distend on his legs because of dizziness and vertigo. Blurry vision is a chronic problem since July 2016 and has been progressing since then. Patient further said he had seen multiple missile facilities repairer including retina specialist in [facility] but they could not give him diagnosis. The present episode lasted about 15 minutes. The patient denies change in his speech, dysarthria, dysphagia, facial droop or weakness, numbness or tingling on one side of body. In ED, patient had CT head which showed previous old right FOLDED CL[employer] TAPER infarct with encephalomalacia but no acute change. Patient had basic lab workup which showed creatinine 1.41, BUN 21, glucose 119. Patient has history of diabetes and is on oral hypoglycemic agents. Patient denies any cardiac symptoms. EKG in the ER shows normal sinus rhythm with LAD, LVH with QRS widening, QRS 130 ms. 1. Possible TIA/acute stroke with history of a stroke in July 2016: Patient is being admitted in PCU on color television console monitor. Cardiac enzymes and EKG ordered. MRI brain ordered. Patient had CT angiogram of head and neck as per imaging services report. Neurology consult. On NIH stroke scale. Being admitted on stroke protocol with aspirin, statin. BP and Ramiro control as per stroke guidelines. PT/OT and speech evaluation. 2. Paroxysmal A. fib on Eliquis: Continue Eliquis. CT does not show any acute change or bleed. 3. Diabetes mellitus type 2: Accu-Chek before meals and at bedtime and cover with NovoLog sliding scale. Patient on Jardiance and Linagliptine. Hold linagliptin. 4. Hypertension: Permissive hypertension as per stroke guidelines. 5. 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 DVT prophylaxis: On Eliquis. Laboratory Results 04/09/18 13:13: POC Glucose 125 H 04/09/18 13:15: WBC 7.9, RBC 5.42, Hgb 16.5, Hct 49.0, MCV 90.4, MCH 30.4, MCHC 33.7, RDW 12.8, RDW Differential 41.9, Plt Count 241, MPV 10.4, Immature Gran % (Auto) 0.300, Neut % (Auto) 61.9, Lymph % (Auto) 26.5, Catahoula % (Auto) 8.6, Eos % (Auto) 2.2, Baso % (Auto) 0.5, Absolute Neuts (auto) 4.9, Absolute Lymphs (auto) 2.09, Total Counted Not Reportable 04/09/18 13:15: PT 13.6, INR 1.0, APTT 30.3 04/09/18 13:15: Sodium 140, Potassium 3.9, Chloride 104, Carbon Dioxide 31.0, Anion Gap 5, BUN 21 H, Creatinine 1.41 H, Estim Creat Clear Calc 55.34, Est GFR (MDRD) Af Amer 67, Est GFR (MDRD) Non-Af 55 L, BUN/Creatinine Ratio 14.9, Glucose 119 H, Calcium 8.9, Troponin I < 0.015 04/09/18 14:42: Troponin I Pending, TSH Pending Clinical Impression(s) from Imaging Studies Brain CT 04/09/18 13:17 IMPRESSION: No change or acute abnormality. Old right FOLDED CLOTH TAPER infarct with encephalomalacia. Code Visit OBSV E&M: 66151 Initial observation care L3
--- NOTE | 2018-04-09 15:08 | HP.PCM_ITS ---
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 fib and was started on Eliquis and other medications came to ER with dizziness, blurry vision and feeling like fall/near fall. Patient could not distend on his legs because of dizziness and vertigo. Blurry vision is a chronic problem since July 2016 and has been progressing since then. Patient further said he had seen multiple glass sander including retina specialist in [facility] but they could not give him diagnosis. The present episode lasted about 15 minutes. The patient denies change in his speech, dysarthria, dysphagia, facial droop or weakness, numbness or tingling on one side of body. In ED, patient had CT head which showed previous old right FITTER HAND infarct with encephalomalacia but no acute change. Patient had basic lab workup which showed creatinine 1.41, BUN 21, glucose 119. Patient has history of diabetes and is on oral hypoglycemic agents. Patient denies any cardiac symptoms. EKG in the ER shows normal sinus rhythm with LAD, LVH with QRS widening, QRS 130 ms. Past Medical History Past Medical History (Chronic Problems): Chronic Problems (Last Updated 06/12/17 @ 17:10 by Lola Mitchell) Non-rheumatic tricuspid valve insufficiency (Chronic) Nonrheumatic mitral valve insufficiency (Chronic) Stroke determined by clinical assessment (Chronic) Diabetes mellitus (Chronic) Chronic GERD (Chronic) HTN (hypertension) (Chronic) Medical History: Medical History (Last Updated 06/12/17 @ 17:10 by Lola Mitchell) Stroke determined by clinical assessment (Chronic) I63.9 Diabetes mellitus (Chronic) E11.9 Chronic GERD (Chronic) K21.9 Hyperlipidemia (Acute) E78.5 Paroxysmal atrial fibrillation (Acute) I48.0 HTN (hypertension) (Chronic) I10 Asthma J45.909 CVA (cerebral vascular accident) I63.9 GERD (gastroesophageal reflux disease) K21.9 Type 2 diabetes mellitus E11.9 Afib (Inactive) I48.91 Asthma (Inactive) J45.909 Blurry vision (Inactive) H53.8 Diabetes (Inactive) E11.9 Allergies No Known Allergies Allergy (Verified 12/12/17 18:48) Home Medications: Ambulatory Orders Medication Instructions Recorded Albuterol IH (ProAir) [Proair Hfa 1 - 2 puff INHALATION Q4H PRN PRN 12/04/14 (SP)Vent Pts] Montelukast [Singulair] 10 mg PO QHS 12/04/14 Atorvastatin Calcium [Lipitor] 80 mg PO QHS 10/22/16 apixaban 5 mg tablet 5 mg PO BID 06/12/17 empagliflozin 25 mg tablet 25 mg PO DAILY 09/25/17 linagliptin 5 mg tablet 5 mg PO DAILY 09/25/17 losartan 50 mg tablet 50 mg PO QDAY 09/25/17 Budesonide/Formoterol 160/4.5 2 puff INHALATION BID 12/12/17 [Symbicort 160/4.5 Mcg Inhaler (SP)] buPROPion SR [Wellbutrin SR (150mg 150 mg PO BID 12/12/17 tablets)] Doxycycline [Vibramycin] 100 mg PO BID 04/09/18 Surgical History: Surgical History (Last Reviewed 09/25/17 @ 15:40 by Nida Rivera) History of arthroscopic knee surgery Z98.890 Bilateral Surgical History: - - right and left knee surgery. Smoking Status: Never smoker - *Family History Maternal Family History: Family History (Last Reviewed 09/25/17 @ 15:40 by Nida Rivera) Mother Heart disease Father Heart disease Diabetes History Items: Heart Disease Paternal Family History: Family History (Last Reviewed 09/25/17 @ 15:40 by Nida Rivera) Mother Heart disease Father Heart disease Diabetes History Items: Heart Disease, - - father with a pacemaker. Review of Systems Constitutional: Denies: Chills, Fever, Weight Change Eyes: Reports: Blurred vision, Vision Change. Denies: Cataracts, Conjunctivae Inflammation, Double vision, Drainage, Eyelid Inflammation, Redness HEENT: Denies: Difficulty Hearing, Difficulty Swallowing, Dysphasia, Head Aches, Sinus Congestion, Sinus Drainage Cardiovascular: Denies: Chest Pain, Claudication, Chest Pressure, Chest Tightness, Edema, Palpitations Respiratory: Denies: Cough, Shortness of breath at rest, Sputum production Gastrointestinal: Denies: Abdominal Pain, Constipation, Diarrhea, Nausea, Vomiting Genitourinary: Denies: Dysuria Musculoskeletal: Denies: Joint Pain, Joint Tenderness Skin: Denies: Rash, Wounds Neurological: Reports: Balance problems, Incoordination. Denies: Focal weakness , Numbness, Tingling Psychiatric: Denies: Anxiety, Depression, Homicidal Ideations, Suicidal Ideations Hematologic/ Lymphatic: Denies: Easy Bruising, Easy Bleeding VTE Information - Inpt Only VTE Present on Admission: No VTE Mechan Device Prophylaxis: None Reason prophylaxis not ordered:: Procedure Not Indicated - already on Eliquis - Physical Exam General: Alert, Oriented x3, Cooperative HEENT: Atraumatic, PERRLA, EOMI, Normocephalic Oral: Moist Mucosa Neck: Supple, No JVD, Negative Carotid Bruits Lungs: Clear to auscultation, Normal air movement, No rhonchi, No wheeze, No rales Cardiovascular: Regular rate, Regular Rhythm, Normal S1, Normal S2, No murmurs Abdomen: Bowel Sounds Present, Soft, Non Tender, Non-Distended Extremities: No edema, Capillary Refill Less than 3 Seconds Skin: No rashes, No breakdown Musculoskeletal: No Tenderness to Palpation of Joints or Extremities Neurological: Cranial nerves II-XII grossly intact, Unsteady Gait, - - Loss of field of vision on left upper quadrant; chronic in nature since July 2016. Patchy stroke scale of 1 Psych/Mental Status: Normal Affect, Appropriate Vital Signs Temp Pulse Resp BP Pulse Ox 99 F 75 18 137/95 H 97 04/09/18 14:41 04/09/18 14:41 04/09/18 14:41 04/09/18 14:42 04/09/18 14:41 Oxygen Delivery Method Room Air Weight: 227 lb Body Mass Index (BMI) 35.5 Finger Stick Blood Glucose 125 Laboratory Tests Past 24 Hrs 04/09/18 04/09/18 04/09/18 13:15 13:15 13:15 WBC 7.9 RBC 5.42 Hgb 16.5 Hct 49.0 MCV 90.4 MCH 30.4 MCHC 33.7 RDW 12.8 RDW Differential 41.9 Plt Count 241 MPV 10.4 Immature Gran % (Auto) 0.300 Neut % (Auto) 61.9 Lymph % (Auto) 26.5 Hernando % (Auto) 8.6 Eos % (Auto) 2.2 Baso % (Auto) 0.5 Absolute Neuts (auto) 4.9 Absolute Lymphs (auto) 2.09 Total Counted Not Reportable PT 13.6 INR 1.0 APTT 30.3 Sodium 140 Potassium 3.9 Chloride 104 Carbon Dioxide 31.0 Anion Gap 5 BUN 21 H Creatinine 1.41 H Estim Creat Clear Calc 55.34 Est GFR (MDRD) Af Amer 67 Est GFR (MDRD) Non-Af 55 L BUN/Creatinine Ratio 14.9 Glucose 119 H Calcium 8.9 Troponin I < 0.015 TSH 04/09/18 14:42 WBC RBC Hgb Hct MCV MCH MCHC RDW RDW Differential Plt Count MPV Immature Gran % (Auto) Neut % (Auto) Lymph % (Auto) Hernando % (Auto) Eos % (Auto) Baso % (Auto) Absolute Neuts (auto) Absolute Lymphs (auto) Total Counted PT INR APTT Sodium Potassium Chloride Carbon Dioxide Anion Gap BUN Creatinine Estim Creat Clear Calc Est GFR (MDRD) Af Amer Est GFR (MDRD) Non-Af BUN/Creatinine Ratio Glucose Calcium Troponin I Pending TSH Pending POC Glucose 04/09/18 13:13 POC Glucose 125 H Assessment/Plan All Active Problems (Last Updated 06/12/17 @ 17:10 by Lola Mitchell) Fatigue (Acute) Hyperlipidemia (Acute) Paroxysmal atrial fibrillation (Acute) The patient is a 57 year old M with 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 fib and was started on Eliquis and other medications came to ER with dizziness, blurry vision and feeling like fall/near fall. Patient could not distend on his legs because of dizziness and vertigo. Blurry vision is a chronic problem since July 2016 and has been progressing since then. Patient further said he had seen multiple glass sander including retina specialist in [facility] but they could not give him diagnosis. The present episode lasted about 15 minutes. The patient denies change in his speech, dysarthria, dysphagia, facial droop or weakness, numbness or tingling on one side of body. In ED, patient had CT head which showed previous old right FITTER HAND infarct with encephalomalacia but no acute change. Patient had basic lab workup which showed creatinine 1.41, BUN 21, glucose 119. Patient has history of diabetes and is on oral hypoglycemic agents. Patient denies any cardiac symptoms. EKG in the ER shows normal sinus rhythm with LAD, LVH with QRS widening, QRS 130 ms. 1. Possible TIA/acute stroke with history of a stroke in July 2016: Patient is being admitted in PCU on patient monitor. Cardiac enzymes and EKG ordered. MRI brain ordered. Patient had CT angiogram of head and neck as per imaging services report. Neurology consult. On NIH stroke scale. Being admitted on stroke protocol with aspirin, statin. BP and Ramiro control as per stroke guidelines. PT/OT and speech evaluation. 2. Paroxysmal A. fib on Eliquis: Continue Eliquis. CT does not show any acute change or bleed. 3. Diabetes mellitus type 2: Accu-Chek before meals and at bedtime and cover with NovoLog sliding scale. Patient on Jardiance and Linagliptine. Hold linagliptin. 4. Hypertension: Permissive hypertension as per stroke guidelines. 5. 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 DVT prophylaxis: On Eliquis. Laboratory Results 04/09/18 13:13: POC Glucose 125 H 04/09/18 13:15: WBC 7.9, RBC 5.42, Hgb 16.5, Hct 49.0, MCV 90.4, MCH 30.4, MCHC 33.7, RDW 12.8, RDW Differential 41.9, Plt Count 241, MPV 10.4, Immature Gran % (Auto) 0.300, Neut % (Auto) 61.9, Lymph % (Auto) 26.5, Hernando % (Auto) 8.6, Eos % (Auto) 2.2, Baso % (Auto) 0.5, Absolute Neuts (auto) 4.9, Absolute Lymphs (auto) 2.09, Total Counted Not Reportable 04/09/18 13:15: PT 13.6, INR 1.0, APTT 30.3 04/09/18 13:15: Sodium 140, Potassium 3.9, Chloride 104, Carbon Dioxide 31.0, Anion Gap 5, BUN 21 H, Creatinine 1.41 H, Estim Creat Clear Calc 55.34, Est GFR (MDRD) Af Amer 67, Est GFR (MDRD) Non-Af 55 L, BUN/Creatinine Ratio 14.9, Glucose 119 H, Calcium 8.9, Troponin I < 0.015 04/09/18 14:42: Troponin I Pending, TSH Pending Clinical Impression(s) from Imaging Studies Brain CT 04/09/18 13:17 IMPRESSION: No change or acute abnormality. Old right FITTER HAND infarct with encephalomalacia. Code Visit OBSV E&M: [id number] Initial observation care L3
[2018-04-09 15:11] LABS: Thyroid Stim Hormone (TSH) 1.67 uIU/mL (0.358-3.74)
[2018-04-09] MEDS: 0.9% Normal Saline 1,000 ML 100 ML IV (15:35)
[2018-04-09 16:39] LABS: CRP < 2.90 mg/L (0.0-3.0)
[2018-04-09 17:00] LABS: Bedside Glucose 89 mg/dL (70-110)
--- NOTE | 2018-04-09 20:20 | NURSING ---
Pt c/o blurry vision, which is new. Has a spot in left upper quadrant of both eyes that he cannot see from. Not new per pt. Minor droop of right eyebrow.
[2018-04-09] MEDS: APIXABAN 5 MG TABLET PO (22:12)
[2018-04-09] MEDS: Atorvastatin Calcium 80 MG Tablet PO (22:13)
[2018-04-09] MEDS: Montelukast 10 MG Tablet PO (22:13)
[2018-04-09] MEDS: Famotidine 20 MG Tablet PO (22:13)
[2018-04-09] MEDS: buPROPion (SR) 150 MG Tablet.SA PO (22:13)
[2018-04-09] MEDS: Acetaminophen 325 MG Tablet 650 MG PO (22:16)
[2018-04-09 23:35] LABS: Bedside Glucose 112 mg/dL (70-110)
[2018-04-10] VITALS (7 sets, daily range): BP systolic 140–156; BP diastolic 73–95; PULSE 61–71; RESP 13–18; TEMP 36.1–36.6; O2SAT 94–96; BMI 35.5
[2018-04-10] MEDS: 0.9% Normal Saline 1,000 ML 100 ML IV (05:09)
[2018-04-10 06:32] LABS: Anion Gap 10 (5-15); BUN 22 mg/dL (7-18); BUN/Creat Ratio 18.6 RATIO (10-20); Calcium,Total 8.2 mg/dL (8.5-10.1); Chloride 110 mmol/L (98-107); Cholesterol 98 mg/dL (200); Creatinine, Serum 1.18 mg/dL (0.70-1.30); EST Glomerular Filtration Rate 68 mL/min (>60); Est Glom Filt Rate - Afr Amer 82 mL/min (>60); Estimated Creatinine Clearance 66.13 ml/min; Glucose 105 mg/dL (74-106); High Density Lipoprotein 49 mg/dL; Potassium 4.1 mmol/L (3.5-5.1); Sodium Level 144 mmol/L (136-145); Triglycerides 94 mg/dL; Very Low Density Lipoprotein 19 mg/dL (5-40)
[2018-04-10 07:06] LABS: Bedside Glucose 105 mg/dL (70-110)
[2018-04-10 07:57] LABS: Hemoglobin A1c 6.4 % (4.2-6.3)
--- NOTE | 2018-04-10 09:39 | PCM.CONS.GEN ---
Reason for Consult Date of Consultation: 04/10/18 Reason for Consultation: blurry vision History of Present Illness: 57 yo right handed white male presents with blurry vision associated with spining and diaphoresis. symptoms lasted 5 minutes then resolved. had another episode several months ago describes complete loss of vision but was otherwise similar. has seen optho who has told him he has ocular issues due to diabetes. on eliquis due to afib. Admit H&P: The patient is a 57 year old M with history of old right GUARD ENTRANCE REGISTRAR infarct in July 2016 when he had blurry vision and diagnosed paroxysmal A. fib and was started on Eliquis and other medications came to ER with dizziness, blurry vision and feeling like fall/near fall. Patient could not distend on his legs because of dizziness and vertigo. Blurry vision is a chronic problem since July 2016 and has been progressing since then. Patient further said he had seen multiple lawyer criminal including retina specialist in [facility] but they could not give him diagnosis. The present episode lasted about 15 minutes. The patient denies change in his speech, dysarthria, dysphagia, facial droop or weakness, numbness or tingling on one side of body. In ED, patient had CT head which showed previous old right GUARD ENTRANCE REGISTRAR infarct with encephalomalacia but no acute change. Patient had basic lab workup which showed creatinine 1.41, BUN 21, glucose 119. Patient has history of diabetes and is on oral hypoglycemic agents. Patient denies any cardiac symptoms. EKG in the ER shows normal sinus rhythm with LAD, LVH with QRS widening, QRS 130 ms. Past Medical History Past Medical History (Chronic Problems): Chronic Problems (Last Reviewed 04/10/18 @ 13:18 by Dakota Pena MD) Non-rheumatic tricuspid valve insufficiency (Chronic) Nonrheumatic mitral valve insufficiency (Chronic) Stroke determined by clinical assessment (Chronic) Diabetes mellitus (Chronic) Chronic GERD (Chronic) HTN (hypertension) (Chronic) Medical History: Medical History (Last Reviewed 04/10/18 @ 13:18 by Dakota Pena MD) Stroke determined by clinical assessment (Chronic) I63.9 Diabetes mellitus (Chronic) E11.9 Chronic GERD (Chronic) K21.9 Hyperlipidemia (Acute) E78.5 Paroxysmal atrial fibrillation (Acute) I48.0 HTN (hypertension) (Chronic) I10 Asthma J45.909 CVA (cerebral vascular accident) I63.9 GERD (gastroesophageal reflux disease) K21.9 Type 2 diabetes mellitus E11.9 Afib (Inactive) I48.91 Asthma (Inactive) J45.909 Blurry vision (Inactive) H53.8 Diabetes (Inactive) E11.9 Allergies No Known Allergies Allergy (Verified 12/12/17 18:48) Home Medications: Ambulatory Orders Medication Instructions Recorded Albuterol IH (ProAir) [Proair Hfa 1 - 2 puff INHALATION Q4H PRN PRN 12/04/14 (SP)Vent Pts] Montelukast [Singulair] 10 mg PO QHS 12/04/14 Atorvastatin Calcium [Lipitor] 80 mg PO QHS 10/22/16 apixaban 5 mg tablet 5 mg PO BID 06/12/17 empagliflozin 25 mg tablet 25 mg PO DAILY 09/25/17 linagliptin 5 mg tablet 5 mg PO DAILY 09/25/17 losartan 50 mg tablet 50 mg PO QDAY 09/25/17 Budesonide/Formoterol 160/4.5 2 puff INHALATION BID 12/12/17 [Symbicort 160/4.5 Mcg Inhaler (SP)] buPROPion SR [Wellbutrin SR (150mg 150 mg PO BID 12/12/17 tablets)] Doxycycline [Vibramycin] 100 mg PO BID 04/09/18 Surgical History: Surgical History (Last Reviewed 04/10/18 @ 13:17 by Dakota Pena MD) History of arthroscopic knee surgery Z98.890 Bilateral Surgical History: - - right and left knee surgery. Smoking Status: Never smoker Tobacco Use: Non-smoker - *Family History Maternal Family History: Family History (Last Reviewed 09/25/17 @ 15:40 by Nida Rivera) Mother Heart disease Father Heart disease Diabetes History Items: Heart Disease Paternal Family History: Family History (Last Reviewed 09/25/17 @ 15:40 by Nida Rivera) Mother Heart disease Father Heart disease Diabetes History Items: Heart Disease, - - father with a pacemaker. - Physical Exam General: Alert, Oriented x3, Cooperative HEENT: Atraumatic, PERRLA, EOMI, Normocephalic Neck: Supple, No JVD, Negative Carotid Bruits Lungs: Clear to auscultation, Normal air movement Cardiovascular: Regular rate, No murmurs Abdomen: Bowel Sounds Present, Soft, Non Tender Extremities: No edema, Capillary Refill Less than 3 Seconds Skin: No rashes, No breakdown Musculoskeletal: No Tenderness to Palpation of Joints or Extremities Neurological: Cranial nerves II-XII grossly intact Psych/Mental Status: Normal Affect, Appropriate Vital Signs Temp Pulse Resp BP Pulse Ox 36.6 C 63 16 156/94 H 96 04/10/18 08:10 04/10/18 08:10 04/10/18 08:10 04/10/18 08:10 04/10/18 08:10 Oxygen Delivery Method Room Air Weight: 102.965 kg Body Mass Index (BMI) 35.5 Finger Stick Blood Glucose 125 Intake and Output for Last 24 Hours 04/08/18 04/09/18 04/10/18 23:59 23:59 23:59 Intake Total 1026 / 1026 470 / 470 Balance 1026 / 1026 470 / 470 Laboratory Tests Past 24 Hrs 04/09/18 04/09/18 04/09/18 13:15 13:15 13:15 WBC 7.9 RBC 5.42 Hgb 16.5 Hct 49.0 MCV 90.4 MCH 30.4 MCHC 33.7 RDW 12.8 RDW Differential 41.9 Plt Count 241 MPV 10.4 Immature Gran % (Auto) 0.300 Neut % (Auto) 61.9 Lymph % (Auto) 26.5 Thomas % (Auto) 8.6 Eos % (Auto) 2.2 Baso % (Auto) 0.5 Absolute Neuts (auto) 4.9 Absolute Lymphs (auto) 2.09 Total Counted Not Reportable PT 13.6 INR 1.0 APTT 30.3 Sodium 140 Potassium 3.9 Chloride 104 Carbon Dioxide 31.0 Anion Gap 5 BUN 21 H Creatinine 1.41 H Estim Creat Clear Calc 55.34 Est GFR (MDRD) Af Amer 67 Est GFR (MDRD) Non-Af 55 L BUN/Creatinine Ratio 14.9 Glucose 119 H Hemoglobin A1c Calcium 8.9 Troponin I < 0.015 C-React Prot Ext Range Triglycerides Cholesterol LDL Cholesterol VLDL Cholesterol HDL Cholesterol TSH 04/09/18 04/09/18 04/09/18 14:42 16:04 16:04 WBC RBC Hgb Hct MCV MCH MCHC RDW RDW Differential Plt Count MPV Immature Gran % (Auto) Neut % (Auto) Lymph % (Auto) Thomas % (Auto) Eos % (Auto) Baso % (Auto) Absolute Neuts (auto) Absolute Lymphs (auto) Total Counted PT INR APTT Sodium Potassium Chloride Carbon Dioxide Anion Gap BUN Creatinine Estim Creat Clear Calc Est GFR (MDRD) Af Amer Est GFR (MDRD) Non-Af BUN/Creatinine Ratio Glucose Hemoglobin A1c Calcium Troponin I < 0.015 < 0.015 C-React Prot Ext Range < 2.90 Triglycerides Cholesterol LDL Cholesterol VLDL Cholesterol HDL Cholesterol TSH 1.67 04/09/18 04/10/18 04/10/18 20:22 05:20 05:20 WBC RBC Hgb Hct MCV MCH MCHC RDW RDW Differential Plt Count MPV Immature Gran % (Auto) Neut % (Auto) Lymph % (Auto) Thomas % (Auto) Eos % (Auto) Baso % (Auto) Absolute Neuts (auto) Absolute Lymphs (auto) Total Counted PT INR APTT Sodium 144 Potassium 4.1 Chloride 110 H Carbon Dioxide 24.0 Anion Gap 10 BUN 22 H Creatinine 1.18 Estim Creat Clear Calc 66.13 Est GFR (MDRD) Af Amer 82 Est GFR (MDRD) Non-Af 68 BUN/Creatinine Ratio 18.6 Glucose 105 Hemoglobin A1c 6.4 H Calcium 8.2 L Troponin I < 0.015 C-React Prot Ext Range Triglycerides 94 Cholesterol 98 LDL Cholesterol 30 VLDL Cholesterol 19 HDL Cholesterol 49 TSH POC Glucose 04/10/18 04/09/18 04/09/18 06:56 22:11 16:50 POC Glucose 105 112 H 89 04/09/18 13:13 POC Glucose 125 H MRI reviewed, no acute. Old right GUARD ENTRANCE REGISTRAR distribution infarct. Echo: Normal by report. Current Home Med List Medication Instructions Recorded Confirmed Type Albuterol IH (ProAir) [Proair Hfa 1 - 2 puff INHALATION Q4H PRN PRN 12/04/14 04/09/18 History (SP)Vent Pts] Montelukast [Singulair] 10 mg PO QHS 12/04/14 04/09/18 History Atorvastatin Calcium [Lipitor] 80 mg PO QHS 10/22/16 04/09/18 History apixaban 5 mg tablet 5 mg PO BID 06/12/17 04/09/18 History empagliflozin 25 mg tablet 25 mg PO DAILY 09/25/17 04/09/18 History linagliptin 5 mg tablet 5 mg PO DAILY 09/25/17 04/09/18 History losartan 50 mg tablet 50 mg PO QDAY 09/25/17 04/09/18 History Budesonide/Formoterol 160/4.5 2 puff INHALATION BID 12/12/17 04/09/18 History [Symbicort 160/4.5 Mcg Inhaler (SP)] buPROPion SR [Wellbutrin SR (150mg 150 mg PO BID 12/12/17 04/09/18 History tablets)] Doxycycline [Vibramycin] 100 mg PO BID 04/09/18 04/09/18 History Current Medications Generic Name Dose Route Start Last Admin Trade Name Freq PRN Reason Stop Dose Admin Acetaminophen 650 mg 04/09/18 14:22 04/09/18 22:16 Tylenol PO 650 mg Q4H PRN PRN Administration Headache/Temp>99F Albuterol Sulfate 2.5 mg 04/09/18 15:00 Ventolin Aerosols INHALATION Q4H PRN PRN Asthma Albuterol Sulfate 2.5 mg 04/09/18 16:00 04/10/18 07:10 Ventolin Aerosols INHALATION Not Given Q6HWA.RT JNONY Apixaban 5 mg 04/09/18 22:00 04/10/18 09:47 Eliquis PO 5 mg BID JONNY Administration Aspirin 81 mg 04/10/18 08:00 04/10/18 09:47 Aspirin, Baby PO 81 mg DAILY@0800 JONNY Administration Atorvastatin Calcium 80 mg 04/09/18 22:00 04/09/18 22:13 Lipitor PO 80 mg QHS JONNY Administration Budesonide 0.5 mg 04/09/18 16:00 04/10/18 07:10 Pulmicort Aerosol INHALATION Not Given Q12H.RT JONNY Bupropion HCl 150 mg 04/09/18 22:00 04/10/18 09:47 Wellbutrin Sr (150mg Tablets) PO 150 mg BID JONNY Administration Dextrose 0 gm 04/09/18 15:13 D50w Syringe IV X1 PRN Hypoglycemia Protocol Famotidine 20 mg 04/09/18 22:00 04/10/18 09:47 Pepcid PO 20 mg BID JONNY Administration Glucagon 1 mg 04/09/18 15:13 IM .X1 PRN Hypoglycemia Sodium Chloride 1,000 mls @ 100 mls/hr 04/09/18 14:22 04/10/18 05:09 IV 100 mls/hr .Q10H JONNY Administration Insulin Human Lispro 0 unit 04/09/18 16:00 04/10/18 11:09 Humalog Gianluca (Bkc) SQ Not Given ACHS JONNY Protocol Labetalol HCl 10 mg 04/09/18 14:51 Trandate IV Q10M PRN MAINTAIN BP < 220/120 Losartan Potassium 50 mg 04/10/18 10:00 04/10/18 09:47 Cozaar PO 50 mg DAILY JONNY Administration Montelukast Sodium 10 mg 04/09/18 22:00 04/09/18 22:13 Singulair PO 10 mg QHS JONNY Administration Sodium Chloride 5 - 30 ml 04/09/18 15:15 IV UD PRN SALINE FLUSH Assessment/Plan All Active Problems (Last Reviewed 04/10/18 @ 13:18 by Dakota Pena MD) Fatigue (Acute) Hyperlipidemia (Acute) Paroxysmal atrial fibrillation (Acute) presyncope, 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 also untreated avni recommend outpt followup with opthalmology continue eliquis follow bp as outpatient recommend cpap compliance
[2018-04-10] MEDS: buPROPion (SR) 150 MG Tablet.SA PO (09:47)
[2018-04-10] MEDS: APIXABAN 5 MG TABLET PO (09:47)
[2018-04-10] MEDS: Losartan Potassium 50 MG Tablet PO (09:47)
[2018-04-10] MEDS: Aspirin 81 MG TAB.CHEW PO (09:47)
[2018-04-10] MEDS: Famotidine 20 MG Tablet PO (09:47)
[2018-04-10] MEDS: Empagliflozin 25 MG Tablet PO (10:56)
[2018-04-10 11:20] LABS: Bedside Glucose 143 mg/dL (70-110)
--- NOTE | 2018-04-10 13:58 | PCM.DC ---
You will use the following diet at home:: Calorie/Carbohydrate Controlled (specify 1200, 1400, etc), Cardiac Discharge Activity: Return to Normal Activity Call your doctor if you observe: Numbness or Tingling, Shortness of breath, Dizziness, Fainting spells, Chest pain Allergies/Adverse Reactions: Allergies No Known Allergies Allergy (Verified 12/12/17 18:48) Medications to take at Discharge Albuterol IH (ProAir) [Proair Hfa] 1 - 2 puff INHALATION Q4H PRN PRN 12/04/14 Montelukast [Singulair] 10 mg PO QHS 12/04/14 Atorvastatin Calcium [Lipitor] 80 mg PO QHS 10/22/16 apixaban 5 mg tablet 5 mg PO BID 06/12/17 empagliflozin 25 mg tablet 25 mg PO DAILY 09/25/17 linagliptin 5 mg tablet 5 mg PO DAILY 09/25/17 losartan 50 mg tablet 50 mg PO QDAY 09/25/17 Budesonide/Formoterol 160/4.5 [Symbicort 160/4.5 Mcg Inhaler (SP)] 2 puff INHALATION BID 12/12/17 buPROPion SR [Wellbutrin SR (150mg tablets)] 150 mg PO BID 12/12/17 Doxycycline [Vibramycin] 100 mg PO BID 04/09/18 Losartan Potassium [Cozaar] 50 mg PO BID #60 tablet 04/10/18 The following prescriptions were given: Losartan Potassium [Cozaar] 50 mg PO BID #60 tablet Primary Care Physician: Júnior Armstrong Chi, MD [Primary Care Provider] - Please follow up with your Primary Care Physician in: 1 Week Test Results: Test results from this visit will be discussed in further detail at your follow-up appointment, if applicable. Please Follow Up With: Dakota Pena MD When: 4-6 Weeks Please Follow Up With: Data Center Operator When: 1 Week Proposed Discharge Date: 04/10/18
--- NOTE | 2018-04-10 14:01 | PCM.DC.SUM ---
<Kelly Alford - Last Filed: 04/10/18 14:11> Discharge Date and Diagnosis Date of Admission: 04/09/18 Date of Discharge: 04/10/18 - Primary Discharge Diagnosis 1. Presyncope-CVA ruled out. 2. Paroxysmal atrial fibrillation 3. GERD 4. Type 2 diabetes mellitus 5. Hypertension 6. Hyperlipidemia 7. History of CVA 8. Elevated creatinine, suspect secondary to dehydration. No acute kidney injury. - Secondary Discharge Diagnosis Chronic Problems (Last Reviewed 04/10/18 @ 13:18 by Dakota Pena MD) Non-rheumatic tricuspid valve insufficiency (Chronic) Nonrheumatic mitral valve insufficiency (Chronic) Stroke determined by clinical assessment (Chronic) Diabetes mellitus (Chronic) Chronic GERD (Chronic) HTN (hypertension) (Chronic) Hospital Course and Treatment Imaging Results: Diagnostic Data Brain CT 04/09/18 13:17 IMPRESSION: No change or acute abnormality. Old right REPAIRER HAIRSPRING infarct with encephalomalacia. N.B. : The above information has been verbally conveyed by Farhad Sanchez MD to Dr. Tom MD, on 04/09/2018 13:45:01 (ET). Electronically Signed: Farhad Sanchez MD at 13:41 EST , Service support , Brain MRI 04/09/18 14:22 IMPRESSION: Minor periventricular white matter ischemic changes without evidence for acute infarct. Old right posterior temporal and occipital lobe infarcts Electronically Signed: Jamil Ennis MD at 23:13 EST , Service support , Dr. Pena- Neurology Operations: None Procedures: 2-D Echocardiogram Summary of Care Provided: The patient is a 57 year old M admitted 04/09/2018 due to blurry vision with dizziness. Patient states his blurred vision has been ongoing for a few weeks. He has not had any further dizziness or lightheadedness since admission. He has a past medical history of CVA, paroxysmal atrial fibrillation, type 2 diabetes mellitus, hypertension, hyperlipidemia, GERD, ANI. Neurology consulted. Brain CT showed no acute abnormality. Old right REPAIRER HAIRSPRING infarct with encephalomalacia. MRI of the brain again with no acute infarct. Echocardiogram showed an EF of 55%, stage I diastolic dysfunction. Patient was noted to have mildly elevated creatinine, suspect secondary to dehydration. Resolved with IV fluids. Patient recommends compliance with CPAP. Further control of blood pressure as outpatient. Patient's losartan regimen increased to twice daily. Patient will continue Eliquis for atrial fibrillation. Recommend outpatient follow-up with ophthalmology. Follow-up with primary care physician in 1 week. Follow-up with neurology in 4-6 weeks. Acute CVA ruled out. Other chronic medical conditions as noted above are stable at this time. Hemoglobin A1c 6.4%. Troponin negative x3. General: Alert, Oriented x3, Cooperative HEENT: Atraumatic, PERRLA, EOMI, Normocephalic Oral: Moist Mucosa Neck: Supple, No JVD, Negative Carotid Bruits Lungs: Clear to auscultation, Normal air movement Cardiovascular: Regular rate, Regular Rhythm, Normal S1, Normal S2, No murmurs Abdomen: Bowel Sounds Present, Soft, Non Tender, Non-Distended Extremities: No edema, Capillary Refill Less than 3 Seconds Skin: No rashes, No breakdown Musculoskeletal: No Tenderness to Palpation of Joints or Extremities Neurological: Cranial nerves II-XII grossly intact, neuro grossly intact Psych/Mental Status: Normal Affect, Appropriate Patient seen and examined prior to discharge. Physical assessment as noted above. Patient stable for discharge home with a follow-up or conditions as noted above. This patient was seen by GURINDER Nugent under the supervision of Dr. Wilson. - Physical Exam Vital Signs Temp Pulse Resp BP Pulse Ox 97 F L 71 18 154/95 H 96 04/10/18 13:42 04/10/18 13:42 04/10/18 13:42 04/10/18 13:42 04/10/18 13:42 Oxygen Delivery Method Room Air Weight: 227 lb Body Mass Index (BMI) 35.5 Finger Stick Blood Glucose 125 Intake and Output for Last 24 Hours 04/08/18 04/09/18 04/10/18 23:59 23:59 23:59 Intake Total 1026 / 1026 710 / 710 Balance 1026 / 1026 710 / 710 Laboratory Tests Past 24 Hrs 04/09/18 04/09/18 04/09/18 14:42 16:04 16:04 Sodium Potassium Chloride Carbon Dioxide Anion Gap BUN Creatinine Estim Creat Clear Calc Est GFR (MDRD) Af Amer Est GFR (MDRD) Non-Af BUN/Creatinine Ratio Glucose Hemoglobin A1c Calcium Troponin I < 0.015 < 0.015 C-React Prot Ext Range < 2.90 Triglycerides Cholesterol LDL Cholesterol VLDL Cholesterol HDL Cholesterol TSH 1.67 04/09/18 04/10/18 04/10/18 20:22 05:20 05:20 Sodium 144 Potassium 4.1 Chloride 110 H Carbon Dioxide 24.0 Anion Gap 10 BUN 22 H Creatinine 1.18 Estim Creat Clear Calc 66.13 Est GFR (MDRD) Af Amer 82 Est GFR (MDRD) Non-Af 68 BUN/Creatinine Ratio 18.6 Glucose 105 Hemoglobin A1c 6.4 H Calcium 8.2 L Troponin I < 0.015 C-React Prot Ext Range Triglycerides 94 Cholesterol 98 LDL Cholesterol 30 VLDL Cholesterol 19 HDL Cholesterol 49 TSH POC Glucose 04/10/18 04/10/18 04/09/18 11:06 06:56 22:11 POC Glucose 143 H 105 112 H 04/09/18 16:50 POC Glucose 89 Discharge Diet: Low fat/ Low Cholesterol, Carb Control Diet Discharge Activity: Return to Normal Activity Call your doctor if you observe: Numbness or Tingling, Shortness of breath, Dizziness, Fainting spells, Chest pain Home Medications: Medications to take at Discharge Albuterol IH (ProAir) [Proair Hfa] 1 - 2 puff INHALATION Q4H PRN PRN 12/04/14 Montelukast [Singulair] 10 mg PO QHS 12/04/14 Atorvastatin Calcium [Lipitor] 80 mg PO QHS 10/22/16 apixaban 5 mg tablet 5 mg PO BID 06/12/17 empagliflozin 25 mg tablet 25 mg PO DAILY 09/25/17 linagliptin 5 mg tablet 5 mg PO DAILY 09/25/17 losartan 50 mg tablet 50 mg PO QDAY 09/25/17 Budesonide/Formoterol 160/4.5 [Symbicort 160/4.5 Mcg Inhaler (SP)] 2 puff INHALATION BID 12/12/17 buPROPion SR [Wellbutrin SR (150mg tablets)] 150 mg PO BID 12/12/17 Doxycycline [Vibramycin] 100 mg PO BID 04/09/18 Losartan Potassium [Cozaar] 50 mg PO BID #60 tablet 04/10/18 Following Prescrptions Were Given to Patient: Losartan Potassium [Cozaar] 50 mg PO BID #60 tablet Primary Care Physician: Júnior Armstrong Chi, MD [Primary Care Provider] - Please follow up with your Primary Care Physician in: 1 Week Please Follow Up With: Dakota Pena MD When: 4-6 Weeks Please Follow Up With: Manager Asset Management When: 1 Week Disposition: Home Minutes spent on discharge:: 35 Patient Condition:: Stable Medical Necessity - Tobacco Use Smoking Status: Never smoker Tobacco Use: Non-smoker Meaningful Use Info Meaningful Use Diagnoses (Choose all that apply): None applicable <José Antonio Wilson - Last Filed: 04/10/18 15:39> Discharge Date and Diagnosis - Secondary Discharge Diagnosis Chronic Problems (Last Reviewed 04/10/18 @ 13:18 by Dakota Pena MD) Non-rheumatic tricuspid valve insufficiency (Chronic) Nonrheumatic mitral valve insufficiency (Chronic) Stroke determined by clinical assessment (Chronic) Diabetes mellitus (Chronic) Chronic GERD (Chronic) HTN (hypertension) (Chronic) Hospital Course and Treatment Summary of Care Provided: The patient is a 57 year old M [] - Physical Exam Vital Signs Temp Pulse Resp BP Pulse Ox 97 F L 71 18 154/95 H 96 04/10/18 13:42 04/10/18 13:42 04/10/18 13:42 04/10/18 13:42 04/10/18 13:42 Oxygen Delivery Method Room Air Weight: 227 lb Body Mass Index (BMI) 35.5 Finger Stick Blood Glucose 125 Intake and Output for Last 24 Hours 04/08/18 04/09/18 04/10/18 23:59 23:59 23:59 Intake Total 1026 / 1026 710 / 710 Balance 1026 / 1026 710 / 710 Laboratory Tests Past 24 Hrs 04/09/18 04/09/18 04/09/18 16:04 16:04 20:22 Sodium Potassium Chloride Carbon Dioxide Anion Gap BUN Creatinine Estim Creat Clear Calc Est GFR (MDRD) Af Amer Est GFR (MDRD) Non-Af BUN/Creatinine Ratio Glucose Hemoglobin A1c Calcium Troponin I < 0.015 < 0.015 C-React Prot Ext Range < 2.90 Triglycerides Cholesterol LDL Cholesterol VLDL Cholesterol HDL Cholesterol 04/10/18 04/10/18 05:20 05:20 Sodium 144 Potassium 4.1 Chloride 110 H Carbon Dioxide 24.0 Anion Gap 10 BUN 22 H Creatinine 1.18 Estim Creat Clear Calc 66.13 Est GFR (MDRD) Af Amer 82 Est GFR (MDRD) Non-Af 68 BUN/Creatinine Ratio 18.6 Glucose 105 Hemoglobin A1c 6.4 H Calcium 8.2 L Troponin I C-React Prot Ext Range Triglycerides 94 Cholesterol 98 LDL Cholesterol 30 VLDL Cholesterol 19 HDL Cholesterol 49 POC Glucose 04/10/18 04/10/18 04/09/18 11:06 06:56 22:11 POC Glucose 143 H 105 112 H 04/09/18 16:50 POC Glucose 89 Code Visit Addendum: Dr. Wilson I personally examined the patient and reviewed the chart. I agree with the above. 57-year-old male with a history of an old right REPAIRER HAIRSPRING infarct in July 2016, at that time he had blurry vision and dizziness, which at this time he had the same feeling and was afraid that he was having another stroke. MRI did not demonstrate an acute stroke and neurology did not feel that he was having acute stroke did not recommend any change to his current medical therapy. He is on Eliquis for his A. fib and therefore does not require any further anticoagulation. He will need outpatient follow-up with ophthalmology, as well as his PCP. He will follow-up with neurology in 4-6 weeks and it is recommended that he continue with his home CPAP. OBSV E&M: 47644 Observation care discharge
--- NOTE | 2018-04-10 14:05 | DS.PCM_ITS ---
<Kelly Alford - Last Filed: 04/10/18 14:11> Discharge Date and Diagnosis Date of Admission: 04/09/18 Date of Discharge: 04/10/18 - Primary Discharge Diagnosis 1. Presyncope-CVA ruled out. 2. Paroxysmal atrial fibrillation 3. GERD 4. Type 2 diabetes mellitus 5. Hypertension 6. Hyperlipidemia 7. History of CVA 8. Elevated creatinine, suspect secondary to dehydration. No acute kidney injury. - Secondary Discharge Diagnosis Chronic Problems (Last Reviewed 04/10/18 @ 13:18 by Dakota Pena MD) Non-rheumatic tricuspid valve insufficiency (Chronic) Nonrheumatic mitral valve insufficiency (Chronic) Stroke determined by clinical assessment (Chronic) Diabetes mellitus (Chronic) Chronic GERD (Chronic) HTN (hypertension) (Chronic) Hospital Course and Treatment Imaging Results: Diagnostic Data Brain CT 04/09/18 13:17 IMPRESSION: No change or acute abnormality. 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 N.B. : The above information has been verbally conveyed by Farhad Sanchez MD to Dr. Tom MD, on 04/09/2018 13:45:01 (ET). Electronically Signed: Farhad Sanchez MD at 13:41 EST , Service support , Brain MRI 04/09/18 14:22 IMPRESSION: Minor periventricular white matter ischemic changes without evidence for acute infarct. Old right posterior temporal and occipital lobe infarcts Electronically Signed: Jamil Ennis MD at 23:13 EST , Service support , Dr. Pena- Neurology Operations: None Procedures: 2-D Echocardiogram Summary of Care Provided: The patient is a 57 year old M admitted 04/09/2018 due to blurry vision with dizziness. Patient states his blurred vision has been ongoing for a few weeks. He has not had any further dizziness or lightheadedness since admission. He has a past medical history of CVA, paroxysmal atrial fibrillation, type 2 diabetes mellitus, hypertension, hyperlipidemia, GERD, ANI. Neurology consulted. Brain CT showed no acute abnormality. 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 MRI of the brain again with no acute infarct. Echocardiogram showed an EF of 55%, stage I diastolic dysfunction. Patient was noted to have mildly elevated creatinine, suspect secondary to dehydration. Resolved with IV fluids. Patient recommends compliance with CPAP. Further control of blood pressure as outpatient. Patient's losartan regimen increased to twice daily. Patient will continue Eliquis for atrial fibrillation. Recommend outpatient follow-up with ophthalmology. Follow-up with primary care physician in 1 week. Follow-up with neurology in 4-6 weeks. Acute CVA ruled out. Other chronic medical conditions as noted above are stable at this time. Hemoglobin A1c 6.4%. Troponin negative x3. General: Alert, Oriented x3, Cooperative HEENT: Atraumatic, PERRLA, EOMI, Normocephalic Oral: Moist Mucosa Neck: Supple, No JVD, Negative Carotid Bruits Lungs: Clear to auscultation, Normal air movement Cardiovascular: Regular rate, Regular Rhythm, Normal S1, Normal S2, No murmurs Abdomen: Bowel Sounds Present, Soft, Non Tender, Non-Distended Extremities: No edema, Capillary Refill Less than 3 Seconds Skin: No rashes, No breakdown Musculoskeletal: No Tenderness to Palpation of Joints or Extremities Neurological: Cranial nerves II-XII grossly intact, neuro grossly intact Psych/Mental Status: Normal Affect, Appropriate Patient seen and examined prior to discharge. Physical assessment as noted above. Patient stable for discharge home with a follow-up or conditions as noted above. This patient was seen by GURINDER Nugent under the supervision of Dr. Wilson. - Physical Exam Vital Signs Temp Pulse Resp BP Pulse Ox 97 F L 71 18 154/95 H 96 04/10/18 13:42 04/10/18 13:42 04/10/18 13:42 04/10/18 13:42 04/10/18 13:42 Oxygen Delivery Method Room Air Weight: 227 lb Body Mass Index (BMI) 35.5 Finger Stick Blood Glucose 125 Intake and Output for Last 24 Hours 04/08/18 04/09/18 04/10/18 23:59 23:59 23:59 Intake Total 1026 / 1026 710 / 710 Balance 1026 / 1026 710 / 710 Laboratory Tests Past 24 Hrs 04/09/18 04/09/18 04/09/18 14:42 16:04 16:04 Sodium Potassium Chloride Carbon Dioxide Anion Gap BUN Creatinine Estim Creat Clear Calc Est GFR (MDRD) Af Amer Est GFR (MDRD) Non-Af BUN/Creatinine Ratio Glucose Hemoglobin A1c Calcium Troponin I < 0.015 < 0.015 C-React Prot Ext Range < 2.90 Triglycerides Cholesterol LDL Cholesterol VLDL Cholesterol HDL Cholesterol TSH 1.67 04/09/18 04/10/18 04/10/18 20:22 05:20 05:20 Sodium 144 Potassium 4.1 Chloride 110 H Carbon Dioxide 24.0 Anion Gap 10 BUN 22 H Creatinine 1.18 Estim Creat Clear Calc 66.13 Est GFR (MDRD) Af Amer 82 Est GFR (MDRD) Non-Af 68 BUN/Creatinine Ratio 18.6 Glucose 105 Hemoglobin A1c 6.4 H Calcium 8.2 L Troponin I < 0.015 C-React Prot Ext Range Triglycerides 94 Cholesterol 98 LDL Cholesterol 30 VLDL Cholesterol 19 HDL Cholesterol 49 TSH POC Glucose 04/10/18 04/10/18 04/09/18 11:06 06:56 22:11 POC Glucose 143 H 105 112 H 04/09/18 16:50 POC Glucose 89 Discharge Diet: Low fat/ Low Cholesterol, Carb Control Diet Discharge Activity: Return to Normal Activity Call your doctor if you observe: Numbness or Tingling, Shortness of breath, Dizziness, Fainting spells, Chest pain Home Medications: Medications to take at Discharge Albuterol IH (ProAir) [Proair Hfa] 1 - 2 puff INHALATION Q4H PRN PRN 12/04/14 Montelukast [Singulair] 10 mg PO QHS 12/04/14 Atorvastatin Calcium [Lipitor] 80 mg PO QHS 10/22/16 apixaban 5 mg tablet 5 mg PO BID 06/12/17 empagliflozin 25 mg tablet 25 mg PO DAILY 09/25/17 linagliptin 5 mg tablet 5 mg PO DAILY 09/25/17 losartan 50 mg tablet 50 mg PO QDAY 09/25/17 Budesonide/Formoterol 160/4.5 [Symbicort 160/4.5 Mcg Inhaler (SP)] 2 puff INHALATION BID 12/12/17 buPROPion SR [Wellbutrin SR (150mg tablets)] 150 mg PO BID 12/12/17 Doxycycline [Vibramycin] 100 mg PO BID 04/09/18 Losartan Potassium [Cozaar] 50 mg PO BID #60 tablet 04/10/18 Following Prescrptions Were Given to Patient: Losartan Potassium [Cozaar] 50 mg PO BID #60 tablet Primary Care Physician: Júnior Armstrong Chi, MD [Primary Care Provider] - Please follow up with your Primary Care Physician in: 1 Week Please Follow Up With: Dakota Pena MD When: 4-6 Weeks Please Follow Up With: Market Maker When: 1 Week Disposition: Home Minutes spent on discharge:: 35 Patient Condition:: Stable Medical Necessity - Tobacco Use Smoking Status: Never smoker Tobacco Use: Non-smoker Meaningful Use Info Meaningful Use Diagnoses (Choose all that apply): None applicable <José Antonio Wilson - Last Filed: 04/10/18 15:39> Discharge Date and Diagnosis - Secondary Discharge Diagnosis Chronic Problems (Last Reviewed 04/10/18 @ 13:18 by Dakota Pena MD) Non-rheumatic tricuspid valve insufficiency (Chronic) Nonrheumatic mitral valve insufficiency (Chronic) Stroke determined by clinical assessment (Chronic) Diabetes mellitus (Chronic) Chronic GERD (Chronic) HTN (hypertension) (Chronic) Hospital Course and Treatment Summary of Care Provided: The patient is a 57 year old M [] - Physical Exam Vital Signs Temp Pulse Resp BP Pulse Ox 97 F L 71 18 154/95 H 96 04/10/18 13:42 04/10/18 13:42 04/10/18 13:42 04/10/18 13:42 04/10/18 13:42 Oxygen Delivery Method Room Air Weight: 227 lb Body Mass Index (BMI) 35.5 Finger Stick Blood Glucose 125 Intake and Output for Last 24 Hours 04/08/18 04/09/18 04/10/18 23:59 23:59 23:59 Intake Total 1026 / 1026 710 / 710 Balance 1026 / 1026 710 / 710 Laboratory Tests Past 24 Hrs 04/09/18 04/09/18 04/09/18 16:04 16:04 20:22 Sodium Potassium Chloride Carbon Dioxide Anion Gap BUN Creatinine Estim Creat Clear Calc Est GFR (MDRD) Af Amer Est GFR (MDRD) Non-Af BUN/Creatinine Ratio Glucose Hemoglobin A1c Calcium Troponin I < 0.015 < 0.015 C-React Prot Ext Range < 2.90 Triglycerides Cholesterol LDL Cholesterol VLDL Cholesterol HDL Cholesterol 04/10/18 04/10/18 05:20 05:20 Sodium 144 Potassium 4.1 Chloride 110 H Carbon Dioxide 24.0 Anion Gap 10 BUN 22 H Creatinine 1.18 Estim Creat Clear Calc 66.13 Est GFR (MDRD) Af Amer 82 Est GFR (MDRD) Non-Af 68 BUN/Creatinine Ratio 18.6 Glucose 105 Hemoglobin A1c 6.4 H Calcium 8.2 L Troponin I C-React Prot Ext Range Triglycerides 94 Cholesterol 98 LDL Cholesterol 30 VLDL Cholesterol 19 HDL Cholesterol 49 POC Glucose 04/10/18 04/10/18 04/09/18 11:06 06:56 22:11 POC Glucose 143 H 105 112 H 04/09/18 16:50 POC Glucose 89 Code Visit Addendum: Dr. Wilson I personally examined the patient and reviewed the chart. I agree with the above. 57-year-old male with a history of an old right CRIMINAL RESEARCHER infarct in July 2016, at that time he had blurry vision and dizziness, which at this time he had the same feeling and was afraid that he was having another stroke. MRI did not demonstrate an acute stroke and neurology did not feel that he was having acute stroke did not recommend any change to his current medical therapy. He is on Eliquis for his A. fib and therefore does not require any further anticoagulation. He will need outpatient follow-up with ophthalmology, as well as his PCP. He will follow-up with neurology in 4-6 weeks and it is recommended that he continue with his home CPAP. OBSV E&M: [id number] Observation care discharge
== END 2018-04-10 13:50 | disposition home or self-care (01) ==
LOC: ED 13:33 → PCU 14:07
PROVIDERS: Admitting Provider Internal Medicine; Emergency Provider Emergency Medicine; Family Provider Family Medicine Geriatric Medicine; PCP Family Medicine Geriatric Medicine; Visit Provider Family Medicine
DX: R55 Syncope and collapse (principal); I48.0 Paroxysmal atrial fibrillation; E11.9 Type 2 diabetes mellitus without complications; I10 Essential (primary) hypertension; Z86.73 Personal history of transient ischemic attack (TIA), and cerebral infarction without residual deficits; E78.5 Hyperlipidemia, unspecified; K21.9 Gastro-esophageal reflux disease without esophagitis; H53.30 Unspecified disorder of binocular vision; R29.700 NIHSS score 0; Z79.899 Other long term (current) drug therapy; J45.909 Unspecified asthma, uncomplicated
CPT/HCPCS: 36415; 70450; 70551; 80048; 80061; 82962; 83036; 84443; 84484; 85025; 85610; 85730; 86140; 92523; 93005; 93306; 96360; 96361; 99218; 99282; J7030; Q9957; A4216; G0378

== ENCOUNTER → 2018-05-21 17:21 | Outpatient (CLI) | payer OTHER, SELFPAY ==
[2018-04-10 09:55] VITALS: BMI 35.5
== END ==
PROVIDERS: Family Provider Family Medicine Geriatric Medicine; PCP Family Medicine Geriatric Medicine; Referring Provider Family Medicine Geriatric Medicine; Visit Provider Family Medicine Geriatric Medicine
DX: R68.83 Chills (without fever) (principal)
CPT/HCPCS: 87633

== ENCOUNTER → 2018-08-23 15:48 | Outpatient (CLI) | payer OTHER, SELFPAY ==
[2018-04-10 09:55] VITALS: BMI 35.5
[2018-08-23 16:40] LABS: Absolute Lymphocyte Count 2.33 X10^3/ul (0.83-4.51); Absolute Neutrophil Count 5.6 X10^3/uL (2.0-7.7); Basophil# 0.03 X10^3/uL; Basophil% 0.3 % (0-1); Eosinophil# 0.21 X10^3/uL; Eosinophils% 2.3 % (0-5); Hematocrit 48.7 % (40-54); Hemoglobin 16.2 g/dl (13.0-16.5); Lymphocyte # 2.33 X10^3/ul (4.0); Lymphocyte % 25.4 % (19-41); Mean Corp Hgb Conc 33.3 g/gl (32-36); Mean Corpuscular Hgb 29.6 pg (27.0-32.0); Monocyte# 0.96 X10^3/uL; Monocyte% 10.4 % (0-10); Neutrophil # 5.62 X10^3/uL (2.7-7.7); Neutrophil % 61.2 % (47-70); Platelet Count 256 K/mm3 (150-450); RBC Distribution Width CV 13.7 % (11.6-14.6); RBC Distribution Width SD 44.4 fl (35.1-43.9); Red Blood Count 5.47 M/mm3 (4.6-6.2); White Blood Count 9.2 K/mm3 (4.4-11.0)
[2018-08-23 16:44] LABS: POSITIVE COUNT NO; POSITIVE DIFFERENTIAL NO; POSITIVE MORPHOLOGY NO
[2018-08-23 18:02] LABS: ALB/GLOB Ratio 1.3 RATIO (0.9-2.4); AST(SGOT) 24 U/L (15-37); Alanine Aminotransfer ALT/SGPT 44 U/L (16-61); Alkaline Phosphatase 167 U/L (45-117); Anion Gap 6 (5-15); BUN 22 mg/dL (7-18); BUN/Creat Ratio 17.5 RATIO (10-20); Calcium,Total 8.5 mg/dL (8.5-10.1); Chloride 107 mmol/L (98-107); Creatinine, Serum 1.26 mg/dL (0.70-1.30); EST Glomerular Filtration Rate 63 mL/min (>60); Est Glom Filt Rate - Afr Amer 76 mL/min (>60); Globulin 3.1 g/dL (2.2-4.2); Glucose 90 mg/dL (74-106); Potassium 4.1 mmol/L (3.5-5.1); Protein, Total 7.1 g/dL (6.4-8.2); Sodium Level 140 mmol/L (136-145); Thyroid Stim Hormone (TSH) 1.42 uIU/mL (0.358-3.74)
== END ==
PROVIDERS: Family Provider Family Medicine Geriatric Medicine; PCP Family Medicine Geriatric Medicine; Visit Provider Family Medicine Geriatric Medicine
DX: E11.9 Type 2 diabetes mellitus without complications (principal); I10 Essential (primary) hypertension; F52.8 Other sexual dysfunction not due to a substance or known physiological condition
CPT/HCPCS: 36415; 80053; 84153; 84403; 84443; 85025; G0103

== ENCOUNTER → 2019-03-18 15:51 | Outpatient (CLI) | payer OTHER, SELFPAY ==
[2018-04-10 09:55] VITALS: BMI 35.5
[2019-03-18 17:46] LABS: Absolute Lymphocyte Count 2.24 X10^3/uL (0.83-4.51); Absolute Neutrophil Count 4.2 X10^3/uL (2.0-7.7); Basophil# 0.07 X10^3/uL; Basophil% 0.9 % (0-1); Eosinophil# 0.21 X10^3/uL; Eosinophils% 2.8 % (0-5); Hemoglobin 16.2 g/dL (13.0-16.5); Lymphocyte # 2.24 X10^3/ul (4.0); Lymphocyte % 29.6 % (19-41); Mean Corp Hgb Conc 33.1 g/dL (32-36); Mean Corpuscular Hgb 30.2 pg (27.0-32.0); Mean Corpuscular Volume 91.2 fL (80-94); Mean Platelet Vol. 10.9 fl (6.2-12.0); Monocyte# 0.77 X10^3/uL; Monocyte% 10.2 % (0-10); NRBC Flagged by Analyzer 0 % (0-5); Neutrophil # 4.24 X10^3/uL (2.7-7.7); Neutrophil % 56.1 % (47-70); Platelet Count 236 K/mm3 (150-450); RBC Distribution Width CV 12.2 % (11.6-14.6); RBC Distribution Width SD 40.5 fl (35.1-43.9); Red Blood Count 5.37 M/mm3 (4.6-6.2); White Blood Count 7.6 K/mm3 (4.4-11.0)
[2019-03-18 18:17] LABS: ALB/GLOB Ratio 1.2 RATIO (0.9-2.4); AST(SGOT) 28 U/L (15-37); Alanine Aminotransfer ALT/SGPT 56 U/L (16-61); Albumin, Serum 4.1 g/dL (3.2-5.0); Alkaline Phosphatase 144 U/L (45-117); Anion Gap 7 (5-15); BUN 20 mg/dL (7-18); BUN/Creat Ratio 17.1 RATIO (10-20); Calcium,Total 9.1 mg/dL (8.5-10.1); Chloride 110 mmol/L (98-107); Creatinine, Serum 1.17 mg/dL (0.70-1.30); EST Glomerular Filtration Rate 68 mL/min (>60); Est Glom Filt Rate - Afr Amer 83 mL/min (>60); Globulin 3.3 g/dL (2.2-4.2); Glucose 81 mg/dL (74-106); Protein, Total 7.4 g/dL (6.4-8.2); Sodium Level 143 mmol/L (136-145); Thyroid Stim Hormone (TSH) 3.29 uIU/mL (0.358-3.74)
== END ==
PROVIDERS: Family Provider Family Medicine Geriatric Medicine; PCP Family Medicine Geriatric Medicine; Visit Provider Family Medicine Geriatric Medicine
DX: E11.9 Type 2 diabetes mellitus without complications (principal); I10 Essential (primary) hypertension
CPT/HCPCS: 36415; 80053; 84443; 85025

== ENCOUNTER → 2019-12-18 15:50 | Outpatient (CLI) | payer OTHER, SELFPAY ==
[2018-04-10 09:55] VITALS: BMI 35.5
[2019-12-18 17:38] LABS: Absolute Lymphocyte Count 2.65 X10^3/uL (0.83-4.51); Absolute Neutrophil Count 4.9 X10^3/uL (2.0-7.7); Basophil# 0.09 X10^3/uL; Eosinophil# 0.43 X10^3/uL; Eosinophils% 4.7 % (0-5); Hemoglobin 16.3 g/dL (13.0-16.5); Lymphocyte # 2.65 X10^3/ul (4.0); Lymphocyte % 29.2 % (19-41); Mean Corp Hgb Conc 32.6 g/dL (32-36); Mean Corpuscular Hgb 29.7 pg (27.0-32.0); Mean Corpuscular Volume 91.2 fL (80-94); Mean Platelet Vol. 11.1 fl (6.2-12.0); Monocyte# 0.93 X10^3/uL; Monocyte% 10.3 % (0-10); NRBC Flagged by Analyzer 0 % (0-5); Neutrophil # 4.93 X10^3/uL (2.7-7.7); Neutrophil % 54.4 % (47-70); Platelet Count 287 K/mm3 (150-450); RBC Distribution Width CV 12.4 % (11.6-14.6); RBC Distribution Width SD 41.1 fl (35.1-43.9); Red Blood Count 5.48 M/mm3 (4.6-6.2); White Blood Count 9.1 K/mm3 (4.4-11.0)
[2019-12-18 18:24] LABS: ALB/GLOB Ratio 1.2 RATIO (0.9-2.4); AST(SGOT) 27 U/L (15-37); Alanine Aminotransfer ALT/SGPT 54 U/L (16-61); Albumin, Serum 4.2 g/dL (3.2-5.0); Alkaline Phosphatase 165 U/L (45-117); Anion Gap 5 (5-15); BUN 22 mg/dL (7-18); BUN/Creat Ratio 15.6 RATIO (10-20); Calcium,Total 8.8 mg/dL (8.5-10.1); Chloride 107 mmol/L (98-107); Creatinine, Serum 1.41 mg/dL (0.70-1.30); EST Glomerular Filtration Rate 55 mL/min (>60); Est Glom Filt Rate - Afr Amer 67 mL/min (>60); Globulin 3.6 g/dL (2.2-4.2); Glucose 78 mg/dL (74-106); Potassium 4.1 mmol/L (3.5-5.1); Protein, Total 7.8 g/dL (6.4-8.2); Sodium Level 141 mmol/L (136-145); Thyroid Stim Hormone (TSH) 2.99 uIU/mL (0.358-3.74)
== END ==
PROVIDERS: PCP Family Medicine Geriatric Medicine; Visit Provider Family Medicine Geriatric Medicine
DX: E11.9 Type 2 diabetes mellitus without complications (principal); I10 Essential (primary) hypertension; F52.8 Other sexual dysfunction not due to a substance or known physiological condition
CPT/HCPCS: 36415; 80053; 84403; 84443; 85025

== ENCOUNTER → 2020-04-13 14:18 | Outpatient (CLI) | payer OTHER, SELFPAY ==
[2018-04-10 09:55] VITALS: BMI 35.5
[2020-04-13 18:09] LABS: Absolute Lymphocyte Count 1.86 X10^3/uL (0.83-4.51); Absolute Neutrophil Count 3.3 X10^3/uL (2.0-7.7); Basophil# 0.07 X10^3/uL; Basophil% 1.1 % (0-1); Eosinophil# 0.46 X10^3/uL; Eosinophils% 7.4 % (0-5); Hematocrit 43.5 % (40-54); Hemoglobin 14.2 g/dL (13.0-16.5); Lymphocyte # 1.86 X10^3/ul (4.0); Mean Corp Hgb Conc 32.6 g/dL (32-36); Mean Corpuscular Hgb 30.1 pg (27.0-32.0); Mean Corpuscular Volume 92.4 fL (80-94); Mean Platelet Vol. 10.9 fl (6.2-12.0); Monocyte# 0.54 X10^3/uL; Monocyte% 8.7 % (0-10); NRBC Flagged by Analyzer 0 % (0-5); Neutrophil # 3.25 X10^3/uL (2.7-7.7); Neutrophil % 52.3 % (47-70); Platelet Count 236 K/mm3 (150-450); RBC Distribution Width SD 41.4 fl (35.1-43.9); Red Blood Count 4.71 M/mm3 (4.6-6.2); White Blood Count 6.2 K/mm3 (4.4-11.0)
[2020-04-13 18:40] LABS: ALB/GLOB Ratio 1.3 RATIO (0.9-2.4); AST(SGOT) 21 U/L (15-37); Alanine Aminotransfer ALT/SGPT 41 U/L (16-61); Albumin, Serum 3.9 g/dL (3.2-5.0); Alkaline Phosphatase 120 U/L (45-117); Anion Gap 6 (5-15); BUN 23 mg/dL (7-18); BUN/Creat Ratio 20.2 RATIO (10-20); Chloride 104 mmol/L (98-107); Creatinine, Serum 1.14 mg/dL (0.70-1.30); EST Glomerular Filtration Rate 70 mL/min (>60); Est Glom Filt Rate - Afr Amer 85 mL/min (>60); Globulin 3.1 g/dL (2.2-4.2); Glucose 117 mg/dL (74-106); Potassium 3.8 mmol/L (3.5-5.1); Sodium Level 139 mmol/L (136-145); Thyroid Stim Hormone (TSH) 3.09 uIU/mL (0.358-3.74)
== END ==
PROVIDERS: PCP Family Medicine Geriatric Medicine; Visit Provider Family Medicine Geriatric Medicine
DX: E11.9 Type 2 diabetes mellitus without complications (principal); I10 Essential (primary) hypertension; F52.8 Other sexual dysfunction not due to a substance or known physiological condition
CPT/HCPCS: 36415; 80053; 84403; 84443; 85025

== ENCOUNTER → 2020-07-16 14:26 | Outpatient (CLI) | payer OTHER, SELFPAY ==
[2018-04-10 09:55] VITALS: BMI 35.5
[2020-07-16 16:14] LABS: Absolute Lymphocyte Count 2.01 X10^3/uL (0.83-4.51); Absolute Neutrophil Count 3.2 X10^3/uL (2.0-7.7); Basophil# 0.05 X10^3/uL; Basophil% 0.8 % (0-1); Eosinophils% 6.4 % (0-5); Hematocrit 41.8 % (40-54); Hemoglobin 13.4 g/dL (13.0-16.5); Lymphocyte # 2.01 X10^3/ul (4.0); Mean Corp Hgb Conc 32.1 g/dL (32-36); Mean Corpuscular Hgb 29.8 pg (27.0-32.0); Mean Corpuscular Volume 93.1 fL (80-94); Monocyte# 0.63 X10^3/uL; NRBC Flagged by Analyzer 0 % (0-5); Neutrophil # 3.16 X10^3/uL (2.7-7.7); Neutrophil % 50.3 % (47-70); Platelet Count 253 K/mm3 (150-450); RBC Distribution Width CV 12.3 % (11.6-14.6); RBC Distribution Width SD 42.1 fl (35.1-43.9); Red Blood Count 4.49 M/mm3 (4.6-6.2); White Blood Count 6.3 K/mm3 (4.4-11.0)
[2020-07-16 16:34] LABS: ALB/GLOB Ratio 1.2 RATIO (0.9-2.4); AST(SGOT) 15 U/L (15-37); Alanine Aminotransfer ALT/SGPT 34 U/L (16-61); Albumin, Serum 3.8 g/dL (3.2-5.0); Alkaline Phosphatase 132 U/L (45-117); Anion Gap 6 (5-15); BUN 24 mg/dL (7-18); BUN/Creat Ratio 21.8 RATIO (10-20); Calcium,Total 8.9 mg/dL (8.5-10.1); Chloride 107 mmol/L (98-107); EST Glomerular Filtration Rate 73 mL/min (>60); Est Glom Filt Rate - Afr Amer 88 mL/min (>60); Globulin 3.3 g/dL (2.2-4.2); Glucose 71 mg/dL (74-106); Protein, Total 7.1 g/dL (6.4-8.2); Sodium Level 143 mmol/L (136-145); Thyroid Stim Hormone (TSH) 1.62 uIU/mL (0.358-3.74)
== END ==
PROVIDERS: PCP Family Medicine Geriatric Medicine; Visit Provider Family Medicine Geriatric Medicine
DX: E11.9 Type 2 diabetes mellitus without complications (principal); F52.8 Other sexual dysfunction not due to a substance or known physiological condition; I10 Essential (primary) hypertension
CPT/HCPCS: 36415; 80053; 84403; 84443; 85025

== ENCOUNTER 2021-02-20 00:11 | Observation (INO) | payer OTHER, SELFPAY ==
[2021-02-20] VITALS (13 sets, daily range): BP systolic 143–201; BP diastolic 87–105; PULSE 65–96; RESP 16–23; TEMP 36.5–37; O2SAT 95–97; BMI 38.0; BMI 36.8
--- NOTE | 2021-02-20 00:19 | EKG12_ITS ---
Test Reason : NEURO Blood Pressure : / mmHG Vent. Rate : 079 BPM Atrial Rate : 079 BPM P-R Int : 168 ms QRS Dur : 118 ms QT Int : 400 ms P-R-T Axes : 009 -35 -30 degrees QTc Int : 458 ms Normal sinus rhythm Left axis deviation Left ventricular hypertrophy with QRS widening Nonspecific T wave abnormality Abnormal ECG Confirmed by JAYLEN MEDINA, RUPESH ([id number]), editor greeting card FRIDA VALENZUELA ([id number]) on 02/22/2021 12:47:39 PM Referred By: LUCIO Confirmed By:JENNIFER YORK MD
--- NOTE | 2021-02-20 00:19 | CT_ITS ---
We are attempting to reach an attending provider to discuss findings. An addendum with communication details will be sent when the communication is complete. STUDY: CT HEAD STROKE PROTOCOL W/O CONTRAST INJECTION REASON FOR EXAM: Male, 60 years old. Neuro deficit, acute, stroke suspected TECHNIQUE: Transaxial CT imaging of the brain was performed without administration of intravenous contrast material. Individualized dose optimization techniques were used for this CT. COMPARISON: No relevant priors. FINDINGS: Normal soft tissue structures. Normal calvarium. There is mild cerebral atrophy with widening of the extra-axial spaces and ventricular dilatation. There are areas of decreased attenuation within the white matter tracts of the supratentorial brain, consistent with microvascular disease changes. Encephalomalacia involving the right posterior parietal lobe and right occipital lobe, likely sequela of old infarct. Normal basal ganglia and thalami. Normal brainstem. Normal cerebellum. There is no intracranial hemorrhage. There are no findings of an acute ischemic infarction. Normal visualized paranasal sinuses. CT/STROKE Brain/Head without Cont IMPRESSION: Chronic changes as described. No acute intracranial hemorrhage or space-occupying lesion. Electronically Signed: Cherelle Sebastian MD at 1:00 EDT , Service support ,
--- NOTE | 2021-02-20 00:19 | RAD_ITS ---
STUDY: X-RAY CHEST REASON FOR EXAM: Male, 60 years old. Neuro deficit, acute, stroke suspected TECHNIQUE: Single AP portable view of the chest. COMPARISON: 04/26/2017. FINDINGS: The lungs are clear and expanded. There is no demonstrated pleural abnormality. Normal size heart. Normal mediastinum and evaristo. Normal visualized pulmonary arteries. There is atherosclerotic calcification of the aortic arch with tortuosity. There are diffuse degenerative changes of the visualized thoracic spine. There is degenerative osteoarthritis of the bilateral shoulders. There is no demonstrated abnormality of the visualized soft tissue structures of the upper abdomen. RAD/Chest 1 View IMPRESSION: No acute cardiopulmonary disease. Electronically Signed: Cherelle Sebastian MD at 1:33 EDT , Service support ,
--- NOTE | 2021-02-20 00:20 | ED.VIS.STROK ---
HPI History of Present Illness Chief Complaint: Neuro S/Sx Informant: patient and spouse/S.O. Onset/Context/Timing Onset: Hours (2) Context: Sudden Onset Timing: Continuous Quality and Location: Positive for - (amnesia, headache) Current Severity: Moderate Maximum Severity: Moderate Worsened by: nothing Relieved by: nothing Associated Symptoms Associated Symptoms: Positive for Headache; Negative for Nausea, Vomiting and Chest Pain Narrative Narrative: Patient states at 2200 he felt like he was having a brain fart and then an hour later was repeating questions to his significant other and seemed to forget events and other things that he typically would know. Right now he feels amnestic and has a mild headache and otherwise feels like normal without any other new symptoms. He had a stroke in the past and it left him with left hemianopia which is persistent and similar to prior, but history is limited because the patient does not remember much. [facility] Medical History (Updated 02/20/21 @ 02:[address] Wilfred Hines MD) Afib Asthma Asthma Blurry vision Chronic GERD CVA (cerebral vascular accident) Diabetes Essential hypertension GERD (gastroesophageal reflux disease) HTN (hypertension) Hyperlipidemia Non-rheumatic tricuspid valve insufficiency Nonrheumatic mitral valve insufficiency ANI (obstructive sleep apnea) Paroxysmal atrial fibrillation Pure hypercholesterolemia Stroke determined by clinical assessment Type 2 diabetes mellitus Type 2 diabetes mellitus Home Medications albuterol sulfate 1 - 2 puff INHALATION Q4H PRN PRN 12/04/14 [History Last Taken 04/09/18 06:00] montelukast 10 mg PO QHS 12/04/14 [History Last Taken 04/08/18] atorvastatin 80 mg PO QHS 10/22/16 [History Last Taken 04/08/18] apixaban 5 mg tablet 5 mg PO BID 06/12/17 [History Last Taken 04/09/18 06:00] empagliflozin 25 mg tablet 25 mg PO DAILY 09/25/17 [History Last Taken 04/09/18 06:00] linagliptin 5 mg tablet 5 mg PO DAILY 09/25/17 [History Last Taken 04/09/18 06:00] losartan 50 mg tablet 50 mg PO QDAY 09/25/17 [History Last Taken 04/09/18 06:00] budesonide-formoterol [Symbicort] 2 puff INHALATION BID 12/12/17 [History Last Taken 04/09/18 06:00] bupropion HCl 150 mg PO BID 12/12/17 [History Last Taken 04/09/18 06:00] doxycycline hyclate 100 mg PO BID 04/09/18 [History Last Taken 04/09/18] losartan 50 mg PO BID #60 tablet 04/10/18 [Rx Last Taken Unknown] Allergy/AdvReac Type Severity Reaction Status Date / Time No Known Allergies Allergy Verified 02/20/21 00:18 Family History Mother Heart disease Father Heart disease Diabetes Surgical History History of arthroscopic knee surgery Social History (Updated 09/26/17 @ 07:44 by [facility], [facility]) Smoking Status: Never smoker alcohol intake: current alcohol intake frequency: holidays/special occasions only substance use type: does not use caffeine: No what type of physical activity do you participate in: none ROS ROS ED Constitutional Constitutional ED: Denies chills or fever(s) Eyes Eyes: Reports other Details: Visual field cut on left at baseline ; Denies change in vision or diplopia ENT ENT ED: Denies rhinorrhea or sore throat Cardiovascular Cardiovascular: Denies chest pain or palpitations Respiratory/Chest Respiratory/Chest: Denies cough or dyspnea Gastrointestinal Gastrointestinal: Denies abdominal pain, diarrhea, nausea or vomiting Genitourinary Genitourinary ED: Denies dysuria or hematuria Musculoskeletal Musculoskeletal: Denies back pain or neck pain Integumentary Denies abscess or rash Neurologic Neurologic: Reports as per HPI, headache(s) and memory loss; Denies paresthesias or weakness Psychiatric Psychiatric: Denies anxiety or suicidal thoughts EXAM Physical Exam Const Vital Signs: 02/20/21 00:15 02/20/21 00:19 02/20/21 00:22 Temperature 98.6 F Temperature Source Temporal Pulse Rate 86 85 80 Respiratory Rate 20 H 23 H 19 H Blood Pressure 174/101 H 174/101 H 174/101 H Blood Pressure Mean 125 125 125 Pulse Ox 95 95 95 Oxygen Delivery Method Room Air Room Air Room Air 02/20/21 00:49 02/20/21 01:19 Temperature Temperature Source Pulse Rate 88 80 Respiratory Rate 16 18 Blood Pressure 201/104 H 175/105 H Blood Pressure Mean 136 128 Pulse Ox 95 95 Oxygen Delivery Method Room Air Room Air Positive well nourished and well developed General Appearance ED: well developed and NAD HEENT Reports moist mucous membranes normocephalic and atraumatic Eyes PERRL and EOMs intact bilaterally Neck full ROM and supple Resp normal respiratory effort and clear to auscultation bilaterally Cardio regular rate, regular rhythm and no murmurs GI non-tender and non-distended Auscultation: normoactive bowel sounds Palpation: soft Back/Spine no CVA tenderness General Back: other FROM Extremity normal to inspection General Extremety ED: Negative for edema, pulses abnormal or tenderness General Extremity: Negative for edema or pulses abnormal Neuro CN's II-XII intact bilaterally and no sensory deficits noted Neuro Narrative: left hemianopsia Sensorium / Orientation: awake, alert, oriented to person and oriented to place; Negative for oriented to time Motor Exam: strength 5/5 throughout Skin no rashes or lesions noted and no wounds STROKE Vital Signs/Narrative: Vital Signs Temp Pulse Resp BP Pulse Ox 02/20/21 01:19 80 18 175/105 H 95 02/20/21 00:49 88 16 201/104 H 95 02/20/21 00:22 80 19 H 174/101 H 95 02/20/21 00:19 85 23 H 174/101 H 95 02/20/21 00:15 98.6 F 86 20 H 174/101 H 95 NIHSS Initial: 1a Level of Consciousness: 0 1b LOC Questions (Score 2 if aphasic/stupor): 2 1c LOC Commands (Only score 1st attempt): 0 2 Best Gaze (If aphasic, use reflexive mvmts.): 0 3 Visual: 2 4 Facial Palsy: 0 5 Motor Arm Right (UN = amputation/fusion): 0 5 Motor Arm Left: 0 6 Motor Leg Right: 0 6 Motor Leg Left: 0 7 Limb ataxia (Only + if out of proportion): 0 8 Sensory (Aphasia/stupor=0 or 1, coma=2): 0 9 Best Language: 0 10 Dysarthria (mute, coma=2, intubated=UN): 0 11 Extinction and Inattention (only scored if +): 0 Total Score: 4 MDM MDM MDM Narrative Medical decision making narrative: Since this patient is on Eliquis and last took it today, he is not a TPA candidate, if this is stroke in etiology in the first place, certainly there is more to the differential here although ischemic infarct is in the differential. At this time his NIHSS is 4, he is a 2 at baseline because of his left hemianopia, and the 2 from acute deficits is only because he gets the month and age incorrect. I ordered stroke work-up and discussed immediately with Dr. Huber with [facility] neurology, who agrees with not calling stroke team/alert here since he has an NIH less than 6 although she agrees also with getting CT angiography especially in context of the patient having a 50% lesion in his basilar on prior imaging although he was sent to [place] and it may have been intervened on, but we do not know because the patient is amnestic and a significant other was not with him at that time (later the patient was able to recall and states they did not do any invasive procedures/stenting). CT negative for hemorrhage and acute abnormality, CTA also negative for LVO. Heavy posterior circulation calcifications are noted, initially interpreted as similar to before without any acute flow obstructions, but then radiology changed their interpretation of the scan - see addendum below. Patient's blood pressure did go up to 200, we treated him with labetalol that is now down to 175 after 20 or 30 minutes or so. We will continue to monitor this. Patient's headache is improved, he has not progressed neurologically, and knows the day and his age now, so he is down to an NIH of 2 which is his baseline. Given the new interpretation of the CT angiography I discussed again with Dr. Huber with stroke neurology [facility], she states the patient can stay locally and continue with medical management/work-up including aspirin, atorvastatin, other medications as indicated to stabilize plaques. No intervention is indicated with the lesions noted on the CTA. Plan is for admit to observation for further evaluation. Lab Data Attestation: I reviewed the patient's lab results. Labs: Laboratory Results - last 24 hr 02/20/21 02/20/21 02/20/21 00:15 00:15 00:15 WBC 7.6 RBC 4.59 L Hgb 13.8 Hct 42.6 MCV 92.8 MCH 30.1 MCHC 32.4 RDW Std Deviation 42.1 RDW Coeff of Valentina 12.4 Plt Count 260 MPV 10.6 Immature Gran % (Auto) 0.400 Neut % (Auto) 61.6 Lymph % (Auto) 25.1 [place] % (Auto) 8.6 Eos % (Auto) 3.6 Baso % (Auto) 0.7 Absolute Neuts (auto) 4.7 Absolute Lymphs (auto) 1.90 Nucleated RBC % 0 PT 13.3 INR 1.1 APTT 35.7 Sodium 141 Potassium 3.8 Chloride 106 Carbon Dioxide 29.0 Anion Gap 6 BUN 24 H Creatinine 1.10 Estim Creat Clear Calc 68.44 Est GFR (MDRD) Af Amer 88 Est GFR (MDRD) Non-Af 73 BUN/Creatinine Ratio 21.8 H Glucose 142 H Calcium 9.3 Troponin I High Sens 10 Radiography Diagnostic Testing: Clinical Impression(s) from Imaging Studies Brain CT 02/20/21 00:19 IMPRESSION: Chronic changes as described. No acute intracranial hemorrhage or space-occupying lesion. Electronically Signed: Cherelle Sebastian MD at 1:00 EDT , Service support , ADDENDUM: 02/20/21 0119 IMPRESSION: Chronic changes as described. No acute intracranial hemorrhage or space-occupying lesion. N.B. : The above Results were Read Back by Cherelle Sebastian MD to Wilfred Hines MD, and understanding confirmed on 02/20/2021 01:12:58 (ET). Electronically Signed: Cherelle Sebastian MD at 1:00 EDT , Service support , Chest X-Ray 02/20/21 00:19 IMPRESSION: No acute cardiopulmonary disease. Electronically Signed: Cherelle Sebastian MD at 1:33 EDT , Service support , Head/Neck CTA 02/20/21 00:21 IMPRESSION: Mild calcified disc or disease at the level of the left carotid bulb otherwise unremarkable CT angiogram of the neck with no stenosis, occlusion or dissection. 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 Otherwise unremarkable CT angiogram of the brain with no stenosis, occlusion or aneurysm. Electronically Signed: Cherelle Sebastian MD at 1:17 EDT , Service support , ADDENDUM: 02/20/21 0136 IMPRESSION: CT angiogram neck: Mild calcified atherosclerotic disease at the level of the left carotid bulb otherwise unremarkable CT angiogram of the neck with no stenosis, occlusion or dissection. CTA angiogram brain: There is calcified atherosclerotic disease within the cavernous portion of the bilateral internal carotid arteries and bilateral vertebral arteries. Note to be made that at the level of the right internal carotid artery/cavernous portion there is a short segment of more significant plaque formation contributing to significant narrowing of approximately 65-70% diameter narrowing. In addition, best visualized on sagittal view there is a short segment narrowing of the basilar artery over a length of approximately 1 cm with approximately 70% diameter narrowing. Electronically Signed: Cherelle Sebastian MD at 1:10 EDT , Service support , ADDENDUM: 02/20/21 0141 IMPRESSION: CT angiogram neck: Mild calcified atherosclerotic disease at the level of the left carotid bulb otherwise unremarkable CT angiogram of the neck with no stenosis, occlusion or dissection. CTA angiogram brain: There is calcified atherosclerotic disease within the cavernous portion of the bilateral internal carotid arteries and bilateral vertebral arteries. Note to be made that at the level of the right internal carotid artery/cavernous portion there is a short segment of more significant plaque formation contributing to significant narrowing of approximately 65-70% diameter narrowing. In addition, best visualized on sagittal view there is a short segment narrowing of the basilar artery over a length of approximately 1 cm with approximately 70% diameter narrowing. Electronically Signed: Cherelle Sebastian MD at 1:59 EDT , Service support , N.B. : The above Results were Read Back by Cherelle Sebastian MD to Wilfred Hines MD, and understanding confirmed on 02/20/2021 01:34:22 (ET). EKG Initial EKG: Attestation: I personally reviewed and interpreted this EKG as follows: Interpretation: Sinus Rhythm, No Acute Injury Pattern and LAFB Prior EKG tracings: available for review Prior: Unchanged Stroke Documentation Questions Stroke Team Activated: No Reviewed Inclusion/Exclusion criteria: Yes Was Patient considered for Endovascular Intervention?: No (neg CTA) IV Alteplase (t-PA) Administered: No (anticoagulated) Discharge Plan Dx/Rx/DC Orders Clinical Impression: Hypertensive urgency, Transient amnesia, Paroxysmal atrial fibrillation Disposition Disposition: Acute Care Hospital [facility]
--- NOTE | 2021-02-20 00:21 | CT_ITS ---
We are attempting to reach an attending provider to discuss findings. An addendum with communication details will be sent when the communication is complete. STUDY: CTA HEAD AND NECK WITH CONTRAST REASON FOR EXAM: Male, 60 years old. amnesia, left hemianopsia RADIATION DOSAGE (If Supplied By Facility): CTDIvol = ( 20.04 ) mGy, DLP = ( 717.86 ) mGycm TECHNIQUE: CT angiography was performed with a multi-detector CT scanner. Data acquisition was obtained from the skull base through the vertex following intravenous administration of IV 100mL [id number]-[id number]. MIP images were reconstructed from the axial data set. Post-processing of the angiographic images was performed, with multiplanar reformation and 3D reconstruction. Individualized dose optimization techniques were used for this CT. COMPARISON: No relevant priors. FINDINGS: Normal bilateral petrous carotid arteries. There is calcified plaque formation of the right cavernous carotid artery, with a mild stenosis (less than 50%). There is calcified plaque formation of the left cavernous carotid artery, with a mild stenosis (less than 50%). Normal right A1 segments of the anterior cerebral artery. Normal left A1 segments of the anterior cerebral artery. Normal intact anterior communicating artery (ACOM). Normal bilateral A2 segments of the anterior cerebral arteries. Normal right M1 and M2 segments of the middle cerebral arteries, with a normal M1 bifurcation. Normal left M1 and M2 segments of the middle cerebral arteries, with a normal M1 bifurcation. Normal right posterior communicating artery (PCOM). Normal left posterior communicating artery (PCOM). Mild calcified plaque involving the bilateral vertebral arteries at the skull base. Otherwise normal bilateral vertebral arteries. Normal basilar artery with a normal basilar bifurcation. The visualized bilateral superior cerebellar (SCA) arteries are normal. Normal bilateral P1, P2 and visualized P3 segments of the posterior cerebral arteries. There is no demonstrated aneurysm of the [place]. There is no demonstrated abnormality of the visualized brain. AORTIC ARCH: There is atherosclerotic calcific plaque formation of the aortic arch and great vessels arising from the aortic arch, without a hemodynamically significant stenosis. There is a normal origin of the brachiocephalic, left common carotid, and left subclavian arteries. RIGHT CAROTID ARTERIES: Normal right common carotid artery (CCA). Normal right common carotid bulb. Normal origin of the right internal carotid (ICA) artery without a hemodynamically significant stenosis. Normal visualized cervical portion of the right internal carotid artery. Normal origin of the right external carotid artery (ECA). LEFT CAROTID ARTERIES: Normal left common carotid artery (CCA). There is mild atherosclerotic plaque formation with no narrowing of the left carotid bulb. Normal origin of the left internal carotid (ICA) artery without a hemodynamically significant stenosis. Normal visualized cervical portion of the left internal carotid artery. Normal origin of the left external carotid artery (ECA). VERTEBRAL ARTERIES: Normal bilateral vertebral arteries. CT/CTA Head AND Neck W/ Contrast IMPRESSION: Mild calcified disc or disease at the level of the left carotid bulb otherwise unremarkable CT angiogram of the neck with no stenosis, occlusion or dissection. 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 Otherwise unremarkable CT angiogram of the brain with no stenosis, occlusion or aneurysm. Electronically Signed: Cherelle Sebastian MD at 1:17 EDT , Service support ,
[2021-02-20 00:25] LABS: Absolute Neutrophil Count 4.7 X10^3/uL (2.0-7.7); Basophil# 0.05 X10^3/uL; Basophil% 0.7 % (0-1); Eosinophil# 0.27 X10^3/uL; Eosinophils% 3.6 % (0-5); Hematocrit 42.6 % (40-54); Hemoglobin 13.8 g/dL (13.0-16.5); Lymphocyte % 25.1 % (19-41); Mean Corp Hgb Conc 32.4 g/dL (32-36); Mean Corpuscular Hgb 30.1 pg (27.0-32.0); Mean Corpuscular Volume 92.8 fL (80-94); Mean Platelet Vol. 10.6 fl (6.2-12.0); Monocyte# 0.65 X10^3/uL; Monocyte% 8.6 % (0-10); NRBC Flagged by Analyzer 0 % (0-5); Neutrophil # 4.66 X10^3/uL (2.7-7.7); Neutrophil % 61.6 % (47-70); Platelet Count 260 K/mm3 (150-450); RBC Distribution Width CV 12.4 % (11.6-14.6); RBC Distribution Width SD 42.1 fl (35.1-43.9); Red Blood Count 4.59 M/mm3 (4.6-6.2); White Blood Count 7.6 K/mm3 (4.4-11.0)
[2021-02-20 00:32] LABS: International Normalized Ratio 1.1; Prothrombin Time (Protime)PT. 13.3 SECONDS (11.7-14.9)
[2021-02-20 00:33] LABS: Partial Thromboplast Time 35.7 Seconds (24.1-36.2)
--- NOTE | 2021-02-20 00:42 | ED.RN ---
Dr. Hines at this time no need for overheard stroke alert
[2021-02-20 00:48] LABS: Anion Gap 6 (5-15); BUN 24 mg/dL (7-18); BUN/Creat Ratio 21.8 RATIO (10-20); Calcium,Total 9.3 mg/dL (8.5-10.1); Chloride 106 mmol/L (98-107); EST Glomerular Filtration Rate 73 mL/min (>60); Est Glom Filt Rate - Afr Amer 88 mL/min (>60); Estimated Creatinine Clearance 68.44 ml/min; Glucose 142 mg/dL (74-106); Potassium 3.8 mmol/L (3.5-5.1); Sodium Level 141 mmol/L (136-145); Troponin-I HS 10 pg/mL (3.0-78.0)
[2021-02-20] MEDS: Labetalol (Prefilled) 20 MG/4 ML IV (00:48)
--- NOTE | 2021-02-20 02:35 | HP.PCM.HOS_ITS ---
HPI - General General Date of Admission: 02/20/21 HPI Narrative MONICA AHMADI, is a 60 M who presented to the emergency department [facility] on 02/20/2021 with the chief complaint of acute mental status changes. History is per his girlfriend who is at his bedside as he has no significant recollection of the events previously from this evening. They went out to dinner and he drank about three quarters of a beer and had Cialis prior to that. She noted that while driving home he missed the turn and then later in the evening began having difficulty with recollection of what happened earlier in the evening. His brain seems somewhat foggy and on presentation felt amnestic and had a mild headache which has since resolved. He does have previous stroke which has left him with a left hemianopsia but denies any fever, chills, nausea, vomiting, diarrhea, chest pain, shortness of breath, tingling, numbness, or weakness at this time. He had been fine without any mental status changes prior to dinner and things are significantly better although his girlfriend notes that he still has somewhat of a foggy brain. He does indicate that he has been under a lot of psychological stress at the present time. He was afebrile with a normal pulse rate in the 80s. He was markedly hypertensive with blood pressures as high as 101/104 which improved with labetalol. His most recent blood pressure was 154 systolic during my evaluation. He does take losartan at baseline. His lab work was overtly unremarkable other than mild hyperglycemia at 142 and he does have a history of diabetes. His troponin was 10. A CT of his head showed chronic changes of cerebral atrophy, microvascular disease changes and encephalomalacia of the right posterior parietal and right occipital lobe without any acute intracranial hemorrhage or space-occupying lesion. A CTA of his head and neck were performed and showed mild atherosclerotic disease in the left carotid bulb but an otherwise unremarkable CTA of the neck and a CTA of the brain that showed atherosclerotic disease in the cavernous portion of the bilateral internal carotid arteries and the bilateral vertebral arteries of approximately 60 to 70% on the right side as well as narrowing of the basilar artery over the length of 1 cm with approximately 70% stenosis. The ER physician discussed this with the stroke neurologist at [facility] and there is no interventional need at this time and recommended continue antiplatelet therapy with aspirin, risk factor modification, and statin for plaque stabilization. He will be admitted to [facility] as an observation to rule out TIA/stroke. [facility] Medical History Afib Asthma Asthma Blurry vision Chronic GERD CVA (cerebral vascular accident) Diabetes Essential hypertension GERD (gastroesophageal reflux disease) HTN (hypertension) Hyperlipidemia Non-rheumatic tricuspid valve insufficiency Nonrheumatic mitral valve insufficiency ANI (obstructive sleep apnea) Paroxysmal atrial fibrillation Pure hypercholesterolemia Stroke determined by clinical assessment Type 2 diabetes mellitus Type 2 diabetes mellitus Home Medications albuterol sulfate 1 - 2 puff INHALATION Q4H PRN PRN 12/04/14 [History Last Taken 04/09/18 06:00] montelukast 10 mg PO QHS 12/04/14 [History Last Taken 04/08/18] atorvastatin 80 mg PO QHS 10/22/16 [History Last Taken 04/08/18] apixaban 5 mg tablet 5 mg PO BID 06/12/17 [History Last Taken 04/09/18 06:00] empagliflozin 25 mg tablet 25 mg PO DAILY 09/25/17 [History Last Taken 04/09/18 06:00] linagliptin 5 mg tablet 5 mg PO DAILY 09/25/17 [History Last Taken 04/09/18 06:00] losartan 50 mg tablet 50 mg PO QDAY 09/25/17 [History Last Taken 04/09/18 06:00] budesonide-formoterol [Symbicort] 2 puff INHALATION BID 12/12/17 [History Last Taken 04/09/18 06:00] bupropion HCl 150 mg PO BID 12/12/17 [History Last Taken 04/09/18 06:00] doxycycline hyclate 100 mg PO BID 04/09/18 [History Last Taken 04/09/18] losartan 50 mg PO BID #60 tablet 04/10/18 [Rx Last Taken Unknown] Allergy/AdvReac Type Severity Reaction Status Date / Time No Known Allergies Allergy Verified 02/20/21 00:18 Family History Mother Heart disease Father Heart disease Diabetes Surgical History History of arthroscopic knee surgery Social History Smoking Status: Never smoker alcohol intake: current alcohol intake frequency: holidays/special occasions only substance use type: does not use caffeine: No what type of physical activity do you participate in: none ROS Constitutional Constitutional: Denies anorexia, change in weight, chills, fatigue, fever(s), malaise, night sweats, weakness or other Eyes Eyes: Denies blurry vision, change in eye color, change in vision, discharge from eye(s), double vision, erythema, eye pain, loss of vision or other ENT HEENT: Denies abnormal hearing, dysphagia, ear pain, epistaxis, headache(s), hearing loss, nasal congestion, nasal discharge, post nasal drip, sinus pressure, sore throat or other Cardiovascular Cardiovascular: Denies chest pain, claudication, dyspnea on exertion, edema, lightheadedness, orthopnea, palpitations, paroxysmal nocturnal dyspnea, rapid heart rate, syncope or other Respiratory/Chest Respiratory/Chest: Denies cough, dyspnea, excessive phlegm production, hemoptysis, productive cough, shortness of breath at rest, shortness of breath with exertion, wheezing or other Gastrointestinal Gastrointestinal: Denies abdominal pain, coffee ground emesis, constipation, diarrhea, dyspepsia, hematemesis, hematochezia, loose stools, melena, nausea, vomiting or other Genitourinary Genitourinary: Reports hematuria and other Details: Patient had UA recently and microscopic hematuria was noted Musculoskeletal Musculoskeletal: Denies arthralgias, back pain, joint pain, joint stiffness, joint swelling, myalgias, neck pain or other Neurologic Neurologic: Reports confusion and other Details: Chronic left hemianopsia secondary to previous stroke ; Denies abnormal gait, abnormal speech, disequilibrium, dizziness, focal weakness, headache(s), numbness, paresthesias, seizure-like activity, seizures, syncope, tingling or tremor(s) Psychiatric Psychiatric: Denies anxiety, depression, homicidal ideation, suicidal ideation or other Endocrine Endocrinology: Denies change in body appearance, cold intolerance, excessive sweating, heat intolerance, polydipsia, polyuria or other Hematologic/Lymphatic Hematologic/Lymphatic: Denies anemia, easy bleeding, easy bruising, lymphadenopathy or other Allergic/Immunologic Allergic/Immunologic: Denies rhinitis, hives, eczemia, asthma or other Vital Signs Vital Signs Vital Signs: 02/20/21 00:15 02/20/21 00:19 02/20/21 00:22 Temperature 98.6 F Temperature Source Temporal Pulse Rate 86 85 80 Respiratory Rate 20 H 23 H 19 H Blood Pressure 174/101 H 174/101 H 174/101 H Blood Pressure Mean 125 125 125 Pulse Ox 95 95 95 Oxygen Delivery Method Room Air Room Air Room Air 02/20/21 00:49 02/20/21 01:19 02/20/21 02:10 Temperature 98.6 F Temperature Source Temporal Pulse Rate 88 80 80 Respiratory Rate 16 18 18 Blood Pressure 201/104 H 175/105 H 175/105 H Blood Pressure Mean 136 128 128 Pulse Ox 95 95 95 Oxygen Delivery Method Room Air Room Air Room Air Weight Weight: 110.3 kg Body Mass Index (BMI) 38.0 Physical Exam Const alert and oriented x3 Constitutional Narrative: Obese, middle-aged white male sitting up in bed, significant other at bedside, appears nontoxic in no acute distress HEENT normocephalic, head/scalp atraumatic, hearing grossly normal bilaterally and moist oral mucous membranes HEENT Narrative: Mallampati 3, good dentition, no thrush Eyes PERRL, EOMs intact bilaterally and conjunctivae normal Eyes Narrative: No scleral icterus Neck no lymphadenopathy, supple, no JVD and no carotid bruits Neck Narrative: Trachea midline, no thyroid enlargement noted Resp normal respiratory effort, no retractions, no use of accessory muscles and clear to auscultation bilaterally Auscultation: Negative for crackles, rales, rhonchi or wheezes Cardio regular rate, regular rhythm, S1 normal heart sound, S2 normal heart sound, no murmurs, no rub, no gallops, no clicks and no JVD Cardio Narrative: No ectopy GI normal to inspection, nondistended, normoactive bowel sounds, soft to palpation, non-tender and non-distended; Negative for hepatosplenomegaly Extremity no clubbing, cyanosis or edema Peripheral Pulses: Yes pulses 2+ throughout Skin no rashes or lesions noted, no wounds, skin turgor normal, no jaundice, no petechiae and no mottling Neuro oriented x3, CN's II-XII intact bilaterally, moves all extremities and no focal motor deficits Sensorium / Orientation: awake and alert Speech: speech normal Motor Exam: strength 5/5 throughout Psych affect normal Results Lab / Micro Data Attestation: I reviewed the patient's lab results. Result Diagrams: 02/20/21 00:15 02/20/21 00:15 Labs: Laboratory Results - last 24 hr 02/20/21 00:15: WBC 7.6, RBC 4.59 L, Hgb 13.8, Hct 42.6, MCV 92.8, MCH 30.1, MCHC 32.4, RDW Std Deviation 42.1, RDW Coeff of Valentina 12.4, Plt Count 260, MPV 10.6, Immature Gran % (Auto) 0.400, Neut % (Auto) 61.6, Lymph % (Auto) 25.1, Dewey % (Auto) 8.6, Eos % (Auto) 3.6, Baso % (Auto) 0.7, Absolute Neuts (auto) 4.7, Absolute Lymphs (auto) 1.90, Nucleated RBC % 0 02/20/21 00:15: PT 13.3, INR 1.1, APTT 35.7 02/20/21 00:15: Sodium 141, Potassium 3.8, Chloride 106, Carbon Dioxide 29.0, Anion Gap 6, BUN 24 H, Creatinine 1.10, Estim Creat Clear Calc 68.44, Est GFR (MDRD) Af Amer 88, Est GFR (MDRD) Non-Af 73, BUN/Creatinine Ratio 21.8 H, Glucose 142 H, Calcium 9.3, Troponin I High Sens [address] 02/20/21 00:19 IMPRESSION: Chronic changes as described. No acute intracranial hemorrhage or space-occupying lesion. Electronically Signed: Cherelle Sebastian MD at 1:00 EDT , Service support , ADDENDUM: 02/20/21118 IMPRESSION: Chronic changes as described. No acute intracranial hemorrhage or space-occupying lesion. N.B. : The above Results were Read Back by Cherelle Sebastian MD to Wilfred Hines MD, and understanding confirmed on 02/20/2021 01:12:58 (ET). Electronically Signed: Cherelle Sebastian MD at 1:00 EDT , Service support , Chest X-Ray 02/20/21 00:19 IMPRESSION: No acute cardiopulmonary disease. Electronically Signed: Cherelle Sebastian MD at 1:33 EDT , Service support , Head/Neck CTA 02/20/21 00:21 IMPRESSION: Mild calcified disc or disease at the level of the left carotid bulb otherwise unremarkable CT angiogram of the neck with no stenosis, occlusion or dissection. 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 Otherwise unremarkable CT angiogram of the brain with no stenosis, occlusion or aneurysm. Electronically Signed: Cherelle Sebastian MD at 1:17 EDT , Service support , ADDENDUM: 02/20/21 0136 IMPRESSION: CT angiogram neck: Mild calcified atherosclerotic disease at the level of the left carotid bulb otherwise unremarkable CT angiogram of the neck with no stenosis, occlusion or dissection. CTA angiogram brain: There is calcified atherosclerotic disease within the cavernous portion of the bilateral internal carotid arteries and bilateral vertebral arteries. Note to be made that at the level of the right internal carotid artery/cavernous portion there is a short segment of more significant plaque formation contributing to significant narrowing of approximately 65-70% diameter narrowing. In addition, best visualized on sagittal view there is a short segment narrowing of the basilar artery over a length of approximately 1 cm with approximately 70% diameter narrowing. Electronically Signed: Cherelle Sebastian MD at 1:29 EDT , Service support , ADDENDUM: 02/20/21 0141 IMPRESSION: CT angiogram neck: Mild calcified atherosclerotic disease at the level of the left carotid bulb otherwise unremarkable CT angiogram of the neck with no stenosis, occlusion or dissection. CTA angiogram brain: There is calcified atherosclerotic disease within the cavernous portion of the bilateral internal carotid arteries and bilateral vertebral arteries. Note to be made that at the level of the right internal carotid artery/cavernous portion there is a short segment of more significant plaque formation contributing to significant narrowing of approximately 65-70% diameter narrowing. In addition, best visualized on sagittal view there is a short segment narrowing of the basilar artery over a length of approximately 1 cm with approximately 70% diameter narrowing. Electronically Signed: Cherelle Sebastian MD at 1:29 EDT , Service support , N.B. : The above Results were Read Back by Cherelle Sebastian MD to Wilfred Hines MD, and understanding confirmed on 02/20/2021 01:34:22 (ET). Assessment & Plan Assessment/Plan (1) Transient amnesia: (2) Hypertensive urgency: PLAN: Acute mental status change -Transient global amnesia versus hypertensive urgency versus TIA/stroke -Continue aspirin 81 mg daily -Continue statin 80 mg daily--> not on current med rec but patient states he is taking this at home -Check hemoglobin A1c -Check lipids -Check echocardiogram -MRI in a.m. -Patient does have intracranial vascular disease on his CTA but case was discussed with stroke neurologist at [facility] and recommended medical therapy and risk factor modification -Would recommend follow-up as an outpatient with neurology after discharge -Likely discharge home if stable later on 02/20/2021 Hypertensive urgency -Blood pressure is improved -Takes losartan 50 mg daily at home -Trend blood pressures and may need to consider additional antihypertensives upon discharge -We will use as needed labetalol/hydralazine per stroke protocol at now -Goal blood pressure less than 180 and ideally would keep between 180 and 160 at this time given marked elevation on presentation Hyperlipidemia -Continue high-dose statin -Check lipids DM-2 -Continue home oral medications -Accu-Cheks before meals and at bedtime -SSI -Check hemoglobin A1c PAF -Patient is currently in sinus rhythm -Patient takes no rate modulating medications -Continue home Eliquis Asthma -Continue home inhalers -Continue Singulair Depression -Continue bupropion Microscopic hematuria -Patient states he had a recent physical and blood was found in his urine -Patient states that he has not noted any gross hematuria -Recommend outpatient follow-up -May be related to his Eliquis use ED -Cialis at home ANI -CPAP at 8 cmH2O ordered for at bedtime -Patient reports that his compliance has been poor as of recently -Encourage compliance DVT prophylaxis -Eliquis CODE STATUS -Full code Charges/Coding Visit Charges Inpatient E&M: 04425 Init Hosp L3
--- NOTE | 2021-02-20 02:48 | PCS.PANDOC ---
PANDEMIC DOCUMENTATION INITIATED: Date: 12/28/2020 Time: 190
--- NOTE | 2021-02-20 03:53 | CPS ---
Patient reported to not be tolerable to home CPAP. Will wear 2L NC O2 when asleep during hospital visit.
--- NOTE | 2021-02-20 05:55 | MRI_ITS ---
STUDY: MRI BRAIN WITHOUT CONTRAST REASON FOR EXAM: Male, 60 years old. tia/stroke periods of amnesia last pm TECHNIQUE: Standardized multiplanar fat and water weighted pulse sequences were obtained. COMPARISON: CTA brain and CT brain 02/20/2021, MRI of the brain 04/09/2018 FINDINGS: Normal size of the ventricles and extra-axial spaces for the patient''s age. Periventricular white matter gliosis is once again noted most evident in association with the region of the occipital horn on the right. This is slightly advanced when compared to prior study. There is encephalomalacia once again noted in association with the right temporal occipital region of the brain. There is no evidence for recent intracranial ischemia or other cause of cytotoxic edema on diffusion weighted imaging (DWI). Normal bilateral basal ganglia. Normal thalami. There is no extra-axial fluid accumulation. Normal flow voids within the major intracranial circulation suggesting patency by spin echo criteria. Normal sella turcica, pituitary gland, infundibular stalk, optic chiasm and hypothalamus. Normal tectal plate and pineal gland. Normal midbrain, nicola and medulla. Normal cerebellum. Normal basal cisterns. Normal bilateral temporal bones. Normal bilateral internal auditory canals. No demonstrated orbital abnormality, within the constraints of a routine brain study. Normal visualized paranasal sinuses. Normal calvarium and skull base. Normal visualized soft tissue structures. Normal visualized upper cervical spine. MRI/Brain without Contrast IMPRESSION: Chronic right temporal occipital encephalomalacia with mild changes of small vessel disease. The mild changes of small vessel disease are slightly progressed when compared to prior study. No evidence of acute infarct. Electronically Signed: Monica Altamirano MD at 12:15 EDT , Service support ,
--- NOTE | 2021-02-20 05:55 | ECHOD_ITS ---
Reason For Study: TIA/CVA Procedure This was a 2D Doppler, Color Flow transthoracic echocardiogram. The study was technically difficult. Exam performed portable in patient room. Left Ventricle Normal LV size. The estimated ejection fraction is 60 %. Normal diastology for age. No regional wall motion abnormalities noted. Right Ventricle Normal RV size. Normal systolic function. Atria Normal left atrium. Normal right atrium. No doppler evidence for ASD. Mitral Valve There is no mitral valve stenosis. Trivial mitral valve insufficiency. Tricuspid Valve There is no tricuspid stenosis. Trivial tricuspid valve insufficiency. Pulmonary artery systolic pressure is 30-35 mmHg. Aortic Valve Trisinus/trileaflet aortic valve. There is no aortic stenosis. Trivial aortic valve insufficiency. Pulmonic Valve There is no pulmonic valvular stenosis. Trivial pulmonic valve insufficiency. Great Vessels Normal aortic root. Pericardium/Pleural No pericardial effusion. MMode/2D Measurements & Calculations LVIDd: 4.8 cm IVSd: 1.6 cm LAV(MOD-bp): 57.2 ml LVIDs: 3.2 cm LVPWd: 1.2 cm LAV(MOD-bp) Indexed: 26.4 ml/m2 RVDd: 3.9 cm FS: 33.6 % LAV(MOD-sp2): 53.2 ml LAV(MOD-sp4): 53.2 ml LA dimension(2D): 4.2 cm LA A4 area: 17.8 cm2 RA A4 area: 13.7 cm2 Time Measurements MV dec time: 0.26 sec Doppler Measurements & Calculations MV E max chuck: 57.9 cm/sec Lat Peak E' Chuck: 4.1 cm/sec Med Peak E' Chuck: 3.9 cm/sec MV A max chuck: 97.9 cm/sec E/E' lat: 14.2 E/E' med: 15.0 MV E/A: 0.59 Ao V2 max: 105.8 cm/sec LV V1 max: 89.6 cm/sec PA V2 max: 113.5 cm/sec Ao max P.5 mmHg LV V1 max P.2 mmHg TR max chuck: 251.4 cm/sec TR max P.3 mmHg ECHO/Echo Complete Interpretation Summary The estimated ejection fraction is 60 %. Trivial mitral valve insufficiency. Trivial aortic valve insufficiency. Ordering Physician: María Meade Referring Physician: Júnior Armstrong Chi Performed By: Michelle Deleon RDCS, RVT
[2021-02-20 06:30] LABS: Bedside Glucose 104 mg/dL (70-110)
[2021-02-20 06:34] LABS: Absolute Lymphocyte Count 1.56 X10^3/uL (0.83-4.51); Absolute Neutrophil Count 3.9 X10^3/uL (2.0-7.7); Basophil# 0.04 X10^3/uL; Basophil% 0.6 % (0-1); Eosinophil# 0.18 X10^3/uL; Eosinophils% 2.9 % (0-5); Hematocrit 38.9 % (40-54); Hemoglobin 12.8 g/dL (13.0-16.5); Lymphocyte # 1.56 X10^3/ul (0.83-4.51); Mean Corp Hgb Conc 32.9 g/dL (32-36); Mean Corpuscular Volume 91.3 fL (80-94); Mean Platelet Vol. 10.8 fl (6.2-12.0); Monocyte# 0.55 X10^3/uL; Monocyte% 8.8 % (0-10); NRBC Flagged by Analyzer 0 % (0-5); Neutrophil # 3.87 X10^3/uL (2.7-7.7); Neutrophil % 62.2 % (47-70); Platelet Count 222 K/mm3 (150-450); RBC Distribution Width CV 12.4 % (11.6-14.6); RBC Distribution Width SD 41.3 fl (35.1-43.9); Red Blood Count 4.26 M/mm3 (4.6-6.2); White Blood Count 6.2 K/mm3 (4.4-11.0)
[2021-02-20 07:12] LABS: AST(SGOT) 18 U/L (15-37); Alanine Aminotransfer ALT/SGPT 28 U/L (16-61); Albumin, Serum 3.2 g/dL (3.2-5.0); Alkaline Phosphatase 119 U/L (45-117); Anion Gap 8 (5-15); BUN 22 mg/dL (7-18); Calcium,Total 8.7 mg/dL (8.5-10.1); Chloride 105 mmol/L (98-107); Cholesterol 104 mg/dL (200); Creatinine, Serum 0.96 mg/dL (0.70-1.30); EST Glomerular Filtration Rate 86 mL/min (>60); Est Glom Filt Rate - Afr Amer 104 mL/min (>60); Estimated Creatinine Clearance 78.42 ml/min; Globulin 3.3 g/dL (2.2-4.2); Glucose 109 mg/dL (74-106); High Density Lipoprotein 52 mg/dL; Magnesium 1.6 mg/dL (1.6-2.6); Phosphorus 3.9 mg/dL (2.5-4.9); Potassium 3.6 mmol/L (3.5-5.1); Protein, Total 6.5 g/dL (6.4-8.2); Sodium Level 139 mmol/L (136-145); Thyroid Stim Hormone (TSH) 1.87 uIU/mL (0.358-3.74); Triglycerides 123 mg/dL; Very Low Density Lipoprotein 25 mg/dL (5-40)
[2021-02-20] MEDS: buPROPion (SR) 150 MG Tablet.SA PO (08:18)
[2021-02-20] MEDS: Aspirin 81 MG TAB.CHEW PO (08:18)
[2021-02-20] MEDS: LINAGLIPTIN 5 MG TABLET PO (08:18)
[2021-02-20] MEDS: APIXABAN 5 MG TABLET PO (08:18)
[2021-02-20] MEDS: Losartan Potassium 50 MG Tablet PO (08:19)
[2021-02-20] MEDS: Empagliflozin 25 MG Tablet PO (08:19)
--- NOTE | 2021-02-20 10:15 | CASEMGMT ---
YESI CHARLES SERVICE SUPERVISOR CM to room to meet with patient for initial transition planning/care coordination assessment. YESI CHARLES introduced self and role at [facility]. Pt voices understanding and consents to assessment at this time. Pt resting in bed in no distress at this time. Pt is A/O at this time and answers all questions appropriately. Care providers, pharmacy, and demographics verified/updated at this time. PCP: Dr Alejo Specialists: none Preferred Pharmacy:[facility] Insurance:[employer] Prescription Benefit: Somewhat. It's not much Living Will/HPOA: Pt does not currently have LW/HCPOA. Provided info. Pt going through a divorce. Pt aware would be primary medical decision maker if he were unable to make decisions and son would be secondary unless has HPOA stating otherwise. He states he is okay w/that for now. LNOK: , June. One adult son, Pt states he is going thru a divorce. Living Arrangements: Lives in 2-story home w/his in the same home but living separately/in different parts of the house for now. Independent. Usually works 50-hrs/week. Transportation: Pt states drives self and states no transportation concerns at this time. Has a sig other who will take him home @ d/c DME: Has a CPAP but does not wear it all the time. States uses it on average about 4 noc's/week. Denies need for other DME HHC/SNF: No hx of either. No needs identified. Pt wishes to return home and states has no concerns with going home at time of discharge. PLAN: Home Kailyn CAIN RN, CM
[2021-02-20 12:01] LABS: Bedside Glucose 91 mg/dL (70-110)
[2021-02-20] MEDS: Acetaminophen 325 MG Tablet 650 MG PO (12:33)
--- NOTE | 2021-02-20 13:15 | PCM.DC ---
Discharge Instructions Diet Discharge Diet: Low fat / Low cholesterol Activity Discharge Activity: Return to Normal Activity Dressing / Incision Call your doctor if you observe: Numbness or Tingling, Shortness of breath, Dizziness and Chest pain Follow Up Care Test Results: Test results from this visit will be discussed in further detail at your follow-up appointment, if applicable. Discharge Plan Admission Admit Date/Time: 02/20/21 02:06 Primary Reason for Your Visit: TIA vs transient global amnesia Attending Provider: Jalen Moraes Primary Care Provider: Jamil Alejo Discharge Orders/Prescriptions Prescriptions: New aspirin 81 mg Tablet,Chewable 81 mg PO DAILY@0800 Qty: 30 RF: 0 amlodipine 5 mg tablet 5 mg PO DAILY Qty: 30 RF: 0 Continued apixaban [Eliquis] 5 mg tablet 5 mg PO BID RF: 0 empagliflozin [Jardiance] 25 mg tablet 25 mg PO DAILY RF: 0 linagliptin [Tradjenta] 5 mg tablet 5 mg PO DAILY RF: 0 montelukast 10 MG tablet 10 mg PO QHS RF: 0 albuterol sulfate 1 PUFF inhaler 1 - 2 puff INHALATION Q4H PRN PRN (Reason: Asthma) RF: 0 atorvastatin 80 MG tablet 80 mg PO QHS RF: 0 bupropion HCl 150 MG tablet sustained-release 12 hr 150 mg PO BID RF: 0 budesonide-formoterol [Symbicort] 1 INHALER inhaler 2 puff inhalation BID RF: 0 doxycycline hyclate 100 MG capsule 100 mg PO BID RF: 0 losartan 50 MG tablet 50 mg PO BID Qty: 60 RF: 0 Discontinued losartan 50 mg tablet 50 mg PO QDAY RF: 0 Referrals / Follow Up: Cliff Brothers MD [STAFF PHYSICIAN] - Within 2 Weeks Alvaro Blanchard MD [STAFF PHYSICIAN] - Within 2 Weeks Júnior Armstrong Chi, MD [COURTESY STAFF PHYSICIAN] - Jamil Alejo MD [Primary Care Provider] - In 1 Week Disposition Disposition (needs filled in before D/C Order can be placed): Home, Self Care
--- NOTE | 2021-02-20 13:44 | PCM.DC.SUM ---
Documented by User: Kelly Alford NP, HEARING CARE PRACTITIONER-C 02/20/21 14:08 Providers Date of Admission: 02/20/21 Date of Discharge: 02/20/21 Primary Care Physician: Jamil Alejo MD Reason For Visit: TIA Diagnosis Discharge Diagnosis (1) Transient amnesia: Status: Acute Code(s): R41.3 - Other amnesia (2) Hypertensive urgency: Status: Acute Code(s): I16.0 - Hypertensive urgency Medications at Discharge Home Medications albuterol sulfate 1 - 2 puff INHALATION Q4H PRN PRN 12/04/14 montelukast 10 mg PO QHS 12/04/14 atorvastatin 80 mg PO QHS 10/22/16 apixaban 5 mg tablet 5 mg PO BID 06/12/17 empagliflozin 25 mg tablet 25 mg PO DAILY 09/25/17 linagliptin 5 mg tablet 5 mg PO DAILY 09/25/17 budesonide-formoterol [Symbicort] 2 puff INHALATION BID 12/12/17 bupropion HCl 150 mg PO BID 12/12/17 doxycycline hyclate 100 mg PO BID 04/09/18 losartan 50 mg PO BID #60 tablet 04/10/18 amlodipine 5 mg PO DAILY #30 tab 02/20/21 aspirin 81 mg PO DAILY@0800 #30 tab 02/20/21 Hospital Course Operations None Procedures 2-D Echocardiogram Summary of Care Provided Minutes Spent on Discharge: 35 Hospital Course: Patient is a 60-year-old male admitted 02/20/2021 due to transient confusion/forgetfulness and headache. 1. TIA vs TGA-brain CT with chronic changes. CTA of head and neck demonstrates moderate discoid disease in the cavernous portion of the bilateral carotid arteries and bilateral vertebral arteries. MRI of brain demonstrated chronic right temporal subdural encephalomalacia with mild changes of small vessel disease. No acute infarct. Echocardiogram with EF 60%. Case discussed with [facility] neurology per ED physician who recommended medical management, no intervention of CTA lesions. Continue aspirin, statin, Eliquis at discharge. Follow-up with neurology, vascular surgery and PCP. Of note, patient reports he drank a beer and took two Cialis prior to presentation which may have contributed to presenting symptoms. 2. Paroxysmal atrial fibrillation-on Eliquis, not on rate control regimen. 3. Hypertensive urgency-continue losartan 50 mg twice daily. Amlodipine 5 mg daily added. Recommend further outpatient titration pending further blood pressure monitoring. Blood pressure improved. 4. Type 2 diabetes mellitus- on empagliflozin, linagliptin. 5. GERD- no longer on regimen. 6. Hyperlipidemia-continue high-dose statin. 7. History of CVA/history of basilar artery stenosis-continue high-dose statin, aspirin added. Unclear history of basilar intervention? Follow-up with neurology as noted above. 8. ANI-continue home CPAP. Patient reports recent noncompliance. 9. Depression/anxiety-on duloxetine. Does note appear to be on buproprion. 10. ED-on as needed Cialis. Patient seen and examined prior to discharge. Physical assessment as noted below. Patient is stable for discharge with follow up recommendations as noted above. This patient was seen by GURINDER Nugent under the supervision of Dr. Moraes. Physical Exam Const alert, oriented x3 and no apparent distress Orientation / Consciousness: awake, oriented to person, oriented to place and oriented to time HEENT normocephalic and moist oral mucous membranes Eyes PERRL, EOMs intact bilaterally and conjunctivae normal Neck no lymphadenopathy Resp normal respiratory effort and clear to auscultation bilaterally Cardio regular rate, regular rhythm and no murmurs Peripheral Pulses: pulses 2+ throughout GI normal to inspection, nondistended, normoactive bowel sounds, non-tender and non-distended Extremity normal to inspection Skin no rashes or lesions noted Lesions: no lesions Rashes: no rashes Trauma: no lacerations or abrasions Neuro CN's II-XII intact bilaterally, no focal motor deficits, no sensory deficits noted and deep tendon reflexes 2+ bilaterally Psych mental status grossly normal and affect normal Weight / BMI Weight Weight: 234 lb 12.677 oz Body Mass Index (BMI) 36.8 ABG / Lab / Microbiology Data Result Diagrams: 02/20/21 06:00 02/20/21 06:00 Laboratory: Laboratory Results - last 24 hr 02/20/21 00:15: WBC 7.6, RBC 4.59 L, Hgb 13.8, Hct 42.6, MCV 92.8, MCH 30.1, MCHC 32.4, RDW Std Deviation 42.1, RDW Coeff of Valentina 12.4, Plt Count 260, MPV 10.6, Immature Gran % (Auto) 0.400, Neut % (Auto) 61.6, Lymph % (Auto) 25.1, Carbon % (Auto) 8.6, Eos % (Auto) 3.6, Baso % (Auto) 0.7, Absolute Neuts (auto) 4.7, Absolute Lymphs (auto) 1.90, Nucleated RBC % 0 02/20/21 00:15: PT 13.3, INR 1.1, APTT 35.7 02/20/21 00:15: Sodium 141, Potassium 3.8, Chloride 106, Carbon Dioxide 29.0, Anion Gap 6, BUN 24 H, Creatinine 1.10, Estim Creat Clear Calc 68.44, Est GFR (MDRD) Af Amer 88, Est GFR (MDRD) Non-Af 73, BUN/Creatinine Ratio 21.8 H, Glucose 142 H, Calcium 9.3, Troponin I High Sens 10 02/20/21 06:00: WBC 6.2, RBC 4.26 L, Hgb 12.8 L, Hct 38.9 L, MCV 91.3, MCH 30.0, MCHC 32.9, RDW Std Deviation 41.3, RDW Coeff of Valentina 12.4, Plt Count 222, MPV 10.8, Immature Gran % (Auto) 0.500, Neut % (Auto) 62.2, Lymph % (Auto) 25.0, Carbon % (Auto) 8.8, Eos % (Auto) 2.9, Baso % (Auto) 0.6, Absolute Neuts (auto) 3.9, Absolute Lymphs (auto) 1.56, Nucleated RBC % 0 02/20/21 06:00: Sodium 139, Potassium 3.6, Chloride 105, Carbon Dioxide 26.0, Anion Gap 8, BUN 22 H, Creatinine 0.96, Estim Creat Clear Calc 78.42, Est GFR (MDRD) Af Amer 104, Est GFR (MDRD) Non-Af 86, BUN/Creatinine Ratio 23.0 H, Glucose 109 H, Calcium 8.7, Phosphorus 3.9, Magnesium 1.6, Total Bilirubin 0.40, AST 18, ALT 28, Alkaline Phosphatase 119 H, Total Protein 6.5, Albumin 3.2, Globulin 3.3, Albumin/Globulin Ratio 1.0, Triglycerides 123, Cholesterol 104, LDL Cholesterol 27, VLDL Cholesterol 25, HDL Cholesterol 52, TSH 1.87 02/20/21 06:23: POC Glucose 104 02/20/21 11:29: POC Glucose 91 Radiography Diagnostic Testing: Radiology Impression Brain CT 02/20/21 00:19 IMPRESSION: Chronic changes as described. No acute intracranial hemorrhage or space-occupying lesion. Electronically Signed: Cherelle Sebastian MD at 1:00 EDT , Service support , ADDENDUM: 02/20/21 0119 IMPRESSION: Chronic changes as described. No acute intracranial hemorrhage or space-occupying lesion. N.B. : The above Results were Read Back by Cherelle Sebastian MD to Wilfred Hines MD, and understanding confirmed on 02/20/2021 01:12:58 (ET). Electronically Signed: Cherelle Sebastian MD at 1:00 EDT , Service support , Chest X-Ray 02/20/21 00:19 IMPRESSION: No acute cardiopulmonary disease. Electronically Signed: Cherelle Sebastian MD at 1:33 EDT , Service support , Head/Neck CTA 02/20/21 00:21 IMPRESSION: Mild calcified disc or disease at the level of the left carotid bulb otherwise unremarkable CT angiogram of the neck with no stenosis, occlusion or dissection. 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 Otherwise unremarkable CT angiogram of the brain with no stenosis, occlusion or aneurysm. Electronically Signed: Cherelle Sebastian MD at 1:17 EDT , Service support , ADDENDUM: 02/20/21 0136 IMPRESSION: CT angiogram neck: Mild calcified atherosclerotic disease at the level of the left carotid bulb otherwise unremarkable CT angiogram of the neck with no stenosis, occlusion or dissection. CTA angiogram brain: There is calcified atherosclerotic disease within the cavernous portion of the bilateral internal carotid arteries and bilateral vertebral arteries. Note to be made that at the level of the right internal carotid artery/cavernous portion there is a short segment of more significant plaque formation contributing to significant narrowing of approximately 65-70% diameter narrowing. In addition, best visualized on sagittal view there is a short segment narrowing of the basilar artery over a length of approximately 1 cm with approximately 70% diameter narrowing. Electronically Signed: Cherelle Sebastian MD at 1:29 EDT , Service support , ADDENDUM: 02/20/21 0141 IMPRESSION: CT angiogram neck: Mild calcified atherosclerotic disease at the level of the left carotid bulb otherwise unremarkable CT angiogram of the neck with no stenosis, occlusion or dissection. CTA angiogram brain: There is calcified atherosclerotic disease within the cavernous portion of the bilateral internal carotid arteries and bilateral vertebral arteries. Note to be made that at the level of the right internal carotid artery/cavernous portion there is a short segment of more significant plaque formation contributing to significant narrowing of approximately 65-70% diameter narrowing. In addition, best visualized on sagittal view there is a short segment narrowing of the basilar artery over a length of approximately 1 cm with approximately 70% diameter narrowing. Electronically Signed: Cherelle Sebastian MD at 1:29 EDT , Service support , N.B. : The above Results were Read Back by Cherelle Sebastian MD to Wilfred Hines MD, and understanding confirmed on 02/20/2021 01:34:22 (ET). Brain MRI 02/20/21 05:55 IMPRESSION: Chronic right temporal occipital encephalomalacia with mild changes of small vessel disease. The mild changes of small vessel disease are slightly progressed when compared to prior study. No evidence of acute infarct. Electronically Signed: Monica Altamirano MD at 12:15 EDT , Service support , Echocardiogram 02/20/21 05:55 Interpretation Summary The estimated ejection fraction is 60 %. Trivial mitral valve insufficiency. Trivial aortic valve insufficiency. Ordering Physician: María Meade Referring Physician: Júnior Armstrong Chi Performed By: Michelle Deleon RDCS, RVT D/C Instructions Discharge Diet: Low fat / Low cholesterol Call your doctor if you observe: Numbness or Tingling, Shortness of breath, Dizziness and Chest pain Meaningful Use Info Meaningful Use Diagnoses (Choose all that apply): None applicable Discharge Plan Admission Admit Date/Time: 02/20/21 02:06 Primary Reason for Your Visit: TIA vs transient global amnesia Attending Provider: Jalen Moraes Primary Care Provider: Jamil Alejo Instructions Additional Instructions / Restrictions: Patient Problems: Altered Health Status related to Hospitalization Patient Goals: *Optimal Level of Health *Keep Appointments *Medication Compliance *Remain Safe Discharge Orders/Prescriptions Prescriptions: New aspirin 81 mg Tablet,Chewable 81 mg PO DAILY@0800 Qty: 30 RF: 0 amlodipine 5 mg tablet 5 mg PO DAILY Qty: 30 RF: 0 Continued apixaban [Eliquis] 5 mg tablet 5 mg PO BID RF: 0 empagliflozin [Jardiance] 25 mg tablet 25 mg PO DAILY RF: 0 linagliptin [Tradjenta] 5 mg tablet 5 mg PO DAILY RF: 0 montelukast 10 MG tablet 10 mg PO QHS RF: 0 albuterol sulfate 1 PUFF inhaler 1 - 2 puff INHALATION Q4H PRN PRN (Reason: Asthma) RF: 0 atorvastatin 80 MG tablet 80 mg PO QHS RF: 0 bupropion HCl 150 MG tablet sustained-release 12 hr 150 mg PO BID RF: 0 budesonide-formoterol [Symbicort] 1 INHALER inhaler 2 puff inhalation BID RF: 0 doxycycline hyclate 100 MG capsule 100 mg PO BID RF: 0 losartan 50 MG tablet 50 mg PO BID Qty: 60 RF: 0 Discontinued losartan 50 mg tablet 50 mg PO QDAY RF: 0 Referrals / Follow Up: Cliff Brothers MD [STAFF PHYSICIAN] - Within 2 Weeks Alvaro Blanchard MD [STAFF PHYSICIAN] - Within 2 Weeks Júnior Armstrong Chi, MD [COURTESY STAFF PHYSICIAN] - Jamil Alejo MD [Primary Care Provider] - In 1 Week Disposition Disposition (needs filled in before D/C Order can be placed): Home, Self Care Documented by User: Dr. Jalen Moraes MD 02/21/21 08:34 Providers Date of Admission: 02/20/21 Reason For Visit: TIA Medications at Discharge Home Medications albuterol sulfate 1 - 2 puff INHALATION Q4H PRN PRN 12/04/14 montelukast 10 mg PO QHS 12/04/14 atorvastatin 80 mg PO QHS 10/22/16 apixaban 5 mg tablet 5 mg PO BID 06/12/17 empagliflozin 25 mg tablet 25 mg PO DAILY 09/25/17 linagliptin 5 mg tablet 5 mg PO DAILY 09/25/17 budesonide-formoterol [Symbicort] 2 puff INHALATION BID 12/12/17 bupropion HCl 150 mg PO BID 12/12/17 doxycycline hyclate 100 mg PO BID 04/09/18 losartan 50 mg PO BID #60 tablet 04/10/18 amlodipine 5 mg PO DAILY #30 tab 02/20/21 aspirin 81 mg PO DAILY@0800 #30 tab 02/20/21 Hospital Course Operations None Summary of Care Provided Minutes Spent on Discharge: 35 Hospital Course: This patient was seen in conjunction with GURINDER Nugent . I have independently interviewed and examined the patient and reviewed pertinent historical, laboratory, and other data. Please refer to GURINDER Nugent note for details of this patient's presentation, findings, and recommendations. I have reviewed GURINDER Nugent note and concur with documented findings. In brief, patient is 89-year-old gentleman admitted with altered mental status. Admitted to monitored bed for subsequent evaluation. Acute CVA was ruled out with an MRI. Patient was found to have right ICA stenosis 65 to 70%. Plan is for patient to follow-up with vascular surgery as outpatient for subsequent evaluation and management Hospital course: As documented above ABG / Lab / Microbiology Data Result Diagrams: 02/20/21 06:00 02/20/21 06:00 Discharge Plan Admission Admit Date/Time: 02/20/21 02:06 Primary Reason for Your Visit: TIA vs transient global amnesia Attending Provider: Jalen Moraes Primary Care Provider: Jamil Alejo Instructions Additional Instructions / Restrictions: Patient Problems: Altered Health Status related to Hospitalization Patient Goals: *Optimal Level of Health *Keep Appointments *Medication Compliance *Remain Safe Discharge Orders/Prescriptions Prescriptions: New aspirin 81 mg Tablet,Chewable 81 mg PO DAILY@0800 Qty: 30 RF: 0 amlodipine 5 mg tablet 5 mg PO DAILY Qty: 30 RF: 0 Continued apixaban [Eliquis] 5 mg tablet 5 mg PO BID RF: 0 empagliflozin [Jardiance] 25 mg tablet 25 mg PO DAILY RF: 0 linagliptin [Tradjenta] 5 mg tablet 5 mg PO DAILY RF: 0 montelukast 10 MG tablet 10 mg PO QHS RF: 0 albuterol sulfate 1 PUFF inhaler 1 - 2 puff INHALATION Q4H PRN PRN (Reason: Asthma) RF: 0 atorvastatin 80 MG tablet 80 mg PO QHS RF: 0 bupropion HCl 150 MG tablet sustained-release 12 hr 150 mg PO BID RF: 0 budesonide-formoterol [Symbicort] 1 INHALER inhaler 2 puff inhalation BID RF: 0 doxycycline hyclate 100 MG capsule 100 mg PO BID RF: 0 losartan 50 MG tablet 50 mg PO BID Qty: 60 RF: 0 Discontinued losartan 50 mg tablet 50 mg PO QDAY RF: 0 Referrals / Follow Up: Cliff Brothers MD [STAFF PHYSICIAN] - Within 2 Weeks Alvaro Blanchard MD [STAFF PHYSICIAN] - Within 2 Weeks Júnior Armstrong Chi, MD [COURTESY STAFF PHYSICIAN] - Jamil Alejo MD [Primary Care Provider] - In 1 Week Disposition Disposition (needs filled in before D/C Order can be placed): Home, Self Care Hospital Course Operations None
[2021-02-23 07:56] LABS: Bedside Glucose 133 mg/dL (70-110)
== END 2021-02-20 13:28 | disposition home or self-care (01) ==
LOC: ED 01:26 → PCU 02:44
PROVIDERS: Admitting Provider Internal Medicine; Emergency Provider Emergency Medicine; PCP Family Medicine; Visit Provider Internal Medicine
DX: G45.9 Transient cerebral ischemic attack, unspecified (principal); I16.0 Hypertensive urgency; I48.0 Paroxysmal atrial fibrillation; K21.9 Gastro-esophageal reflux disease without esophagitis; E78.5 Hyperlipidemia, unspecified; E11.65 Type 2 diabetes mellitus with hyperglycemia; G47.33 Obstructive sleep apnea (adult) (pediatric); I69.398 Other sequelae of cerebral infarction; H53.47 Heteronymous bilateral field defects; R31.29 Other microscopic hematuria; R29.704 NIHSS score 4; F41.9 Anxiety disorder, unspecified; F32.A Depression, unspecified; J45.909 Unspecified asthma, uncomplicated; I10 Essential (primary) hypertension; Z79.84 Long term (current) use of oral hypoglycemic drugs; Z79.01 Long term (current) use of anticoagulants; Z79.899 Other long term (current) drug therapy; Z79.51 Long term (current) use of inhaled steroids
CPT/HCPCS: 36415; 70450; 70496; 70498; 70551; 71045; 80048; 80053; 80061; 82962; 83735; 84100; 84443; 84484; 85025; 85610; 85730; 93005; 93306; 94762; 96374; 99218; 99251; 99284; Q9967; A4216; G0378; G0463

== ENCOUNTER 2021-06-08 14:46 | Emergency (ER) | payer OTHER, SELFPAY ==
[2021-06-08 14:46] VITALS: BP 174/114; PULSE 97; RESP 18; TEMP 37.7; O2SAT 97; BMI 36.0
--- NOTE | 2021-06-08 15:02 | EDS_ITS ---
HPI History of Present Illness Chief Complaint: Cough Informant: patient and spouse/S.O. Narrative Narrative: 61-year-old male with a history of diabetes hypertension atrial fibrillation presenting to the emergency room with about a 1 day history of fever headache body aches cough and sore throat. Patient is Covid vaccinated. No diarrhea or vomiting. States that he called his doctor's office and they recommended that he come to emergency. He is anticoagulated on apixaban. He notes he has not been missing doses. [facility] Medical History Afib Asthma Asthma Asthma Atrial fibrillation Blurry vision Chronic GERD CVA (cerebral vascular accident) Diabetes Diabetes Essential hypertension GERD (gastroesophageal reflux disease) HTN (hypertension) Hyperlipidemia Hypertension Non-rheumatic tricuspid valve insufficiency Non-smoker Nonrheumatic mitral valve insufficiency ANI (obstructive sleep apnea) Paroxysmal atrial fibrillation Pure hypercholesterolemia Sleep apnea Stroke determined by clinical assessment Stroke/cerebrovascular accident Type 2 diabetes mellitus Type 2 diabetes mellitus Home Medications albuterol sulfate 1 - 2 puff INHALATION Q4H PRN PRN 12/04/14 [History Last Taken 04/09/18 06:00] montelukast 10 mg PO QHS 12/04/14 [History Last Taken 04/08/18] atorvastatin 80 mg PO QHS 10/22/16 [History Last Taken 04/08/18] apixaban 5 mg tablet 5 mg PO BID 06/12/17 [History Last Taken 04/09/18 06:00] empagliflozin 25 mg tablet 25 mg PO DAILY 09/25/17 [History Last Taken 04/09/18 06:00] linagliptin 5 mg tablet 5 mg PO DAILY 09/25/17 [History Last Taken 04/09/18 06:00] budesonide-formoterol [Symbicort] 2 puff INHALATION BID 12/12/17 [History Last Taken 04/09/18 06:00] bupropion HCl 150 mg PO BID 12/12/17 [History Last Taken 04/09/18 06:00] doxycycline hyclate 100 mg PO BID 04/09/18 [History Last Taken 04/09/18] losartan 50 mg PO BID #60 tablet 04/10/18 [Rx Last Taken Unknown] amlodipine 5 mg PO DAILY #30 tab 02/20/21 [Rx Last Taken Unknown] aspirin 81 mg PO DAILY@0800 #30 tab 02/20/21 [Rx Last Taken Unknown] prednisone 60 mg PO DAILY #15 tablet 06/08/21 [Rx Last Taken Unknown] Allergy/AdvReac Type Severity Reaction Status Date / Time No Known Allergies Allergy Verified 06/08/21 14:49 Family History Mother Heart disease Father Heart disease Diabetes Surgical History History of arthroscopic knee surgery Social History Smoking Status: Never smoker alcohol intake: current alcohol intake frequency: holidays/special occasions only substance use type: does not use caffeine: No what type of physical activity do you participate in: none ROS ROS ED Constitutional Constitutional ED: Reports fever(s); Denies chills or weight loss Eyes Eyes: Denies change in vision or diplopia ENT ENT ED: Reports sore throat; Denies ear pain or rhinorrhea Cardiovascular Cardiovascular: Denies chest pain, orthopnea, palpitations or racing heartbeat Respiratory/Chest Respiratory/Chest: Reports cough; Denies dyspnea or orthopnea Gastrointestinal Gastrointestinal: Denies abdominal pain, diarrhea, nausea or vomiting Genitourinary Genitourinary ED: Denies dysuria, hematuria or urinary frequency Musculoskeletal Musculoskeletal: Reports myalgias; Denies arthralgias Integumentary Denies abscess or rash Neurologic Neurologic: Reports headache(s); Denies weakness Psychiatric Psychiatric: Denies anxiety, depression, suicidal ideation or suicidal thoughts Endocrine Endocrinology: Denies polydipsia, polyphagia or polyuria Allergic/Immunologic Allergic/Immunologic ED: Denies mouth swelling, tongue swelling or urticaria EXAM Physical Exam Const Vital Signs: 06/08/21 14:46 06/08/21 15:32 Temperature 99.9 F H Temperature Source Temporal Pulse Rate 97 Respiratory Rate 18 Respiratory Effort Normal Non-Labored Respiratory Depth Normal Respiratory Pattern Normal Blood Pressure 174/114 H Blood Pressure Mean 134 Pulse Ox 97 Oxygen Delivery Method Room Air Positive well nourished and well developed General Appearance ED: well developed HEENT Reports normocephalic, head/scalp atraumatic, TM's clear and moist mucous membranes HEENT Narrative: No meningitic signs. No photophobia. Negative for trauma Tympanic Membrane ED: Yes TM's clear Eyes PERRL and EOMs intact bilaterally Neck no lymphadenopathy, supple and no JVD Resp normal respiratory effort Resp Narrative: Faint end expiratory wheeze on left base Cardio regular rate, regular rhythm and no murmurs GI normal to inspection, nondistended, normoactive bowel sounds and non-tender Palpation: soft Back/Spine no CVA tenderness and normal ROM Extremity normal to inspection General Extremety ED: Negative for edema General Extremity: Negative for edema Neuro oriented x3 and CN's II-XII intact bilaterally Sensorium / Orientation: alert Motor Exam: strength 5/5 throughout Psych mental status grossly normal Mood & Affect: Negative for depressed or tearful Skin no rashes or lesions noted and no wounds MDM MDM MDM Narrative Medical decision making narrative: Patient's Covid and influenza swabs are negative. I did advise the patient that with the current omicron variant some people are not testing positive for several days of symptoms. He is still on his first day of symptoms. My interpretation of the chest x-ray is no acute process. White count 7.4. Hemoglobin 14.5. Platelet count of 238. BUN of 20 with a creatinine 1.21 and a glucose of 121. The patient received a dose of Toradol for headache. Because the patient does have a history of asthma and has some faint wheezing I will prescribe some prednisone. At this point I think the patient most likely has a viral illness. He is to monitor symptoms return if worsening or concerns Lab Data Attestation: I reviewed the patient's lab results. Labs: Laboratory Results - last 24 hr 06/08/21 06/08/21 15:20 15:20 WBC 7.4 RBC 4.92 Hgb 14.5 Hct 45.0 MCV 91.5 MCH 29.5 MCHC 32.2 RDW Std Deviation 41.0 RDW Coeff of Valentina 12.2 Plt Count 238 MPV 10.1 Immature Gran % (Auto) 0.300 Neut % (Auto) 76.1 H Lymph % (Auto) 13.4 L Upton % (Auto) 7.7 Eos % (Auto) 2.0 Baso % (Auto) 0.5 Absolute Neuts (auto) 5.6 Absolute Lymphs (auto) 0.99 Nucleated RBC % 0 Sodium 139 Potassium 3.9 Chloride 104 Carbon Dioxide 28.0 Anion Gap 7 BUN 20 H Creatinine 1.21 Estim Creat Clear Calc 61.46 Est GFR (MDRD) Af Amer 79 Est GFR (MDRD) Non-Af 65 BUN/Creatinine Ratio 16.5 Glucose 121 H Calcium 9.0 Total Bilirubin 0.70 AST 16 ALT 27 Alkaline Phosphatase 137 H Total Protein 7.1 Albumin 3.7 Globulin 3.4 Albumin/Globulin Ratio 1.1 Discharge Plan Triage Chief Complaint: Cough ED Provider: Sage Saucedo Dx/Rx/DC Orders Clinical Impression: Acute viral syndrome, Headache, Asthma Instructions: ED Viral Syndrome (Adult) Prescriptions: New prednisone 20 MG tablet 60 mg PO DAILY Qty: 15 RF: 0 No Action apixaban [Eliquis] 5 mg tablet 5 mg PO BID RF: 0 empagliflozin [Jardiance] 25 mg tablet 25 mg PO DAILY RF: 0 linagliptin [Tradjenta] 5 mg tablet 5 mg PO DAILY RF: 0 montelukast 10 MG tablet 10 mg PO QHS RF: 0 albuterol sulfate 1 PUFF inhaler 1 - 2 puff INHALATION Q4H PRN PRN (Reason: Asthma) RF: 0 atorvastatin 80 MG tablet 80 mg PO QHS RF: 0 bupropion HCl 150 MG tablet sustained-release 12 hr 150 mg PO BID RF: 0 budesonide-formoterol [Symbicort] 1 INHALER inhaler 2 puff inhalation BID RF: 0 doxycycline hyclate 100 MG capsule 100 mg PO BID RF: 0 losartan 50 MG tablet 50 mg PO BID Qty: 60 RF: 0 aspirin 81 mg Tablet,Chewable 81 mg PO DAILY@0800 Qty: 30 RF: 0 amlodipine 5 mg tablet 5 mg PO DAILY Qty: 30 RF: 0 Primary Care Provider: Jamil Alejo Referrals: Jamil Alejo MD [Primary Care Provider] - As Needed Disposition Disposition: Home, Self Care
[2021-06-08 15:30] LABS: Absolute Lymphocyte Count 0.99 X10^3/uL (0.83-4.51); Absolute Neutrophil Count 5.6 X10^3/uL (2.0-7.7); Basophil# 0.04 X10^3/uL; Basophil% 0.5 % (0-1); Eosinophil# 0.15 X10^3/uL; Hemoglobin 14.5 g/dL (13.0-16.5); Lymphocyte # 0.99 X10^3/ul (0.83-4.51); Lymphocyte % 13.4 % (19-41); Mean Corp Hgb Conc 32.2 g/dL (32-36); Mean Corpuscular Hgb 29.5 pg (27.0-32.0); Mean Corpuscular Volume 91.5 fL (80-94); Mean Platelet Vol. 10.1 fl (6.2-12.0); Monocyte# 0.57 X10^3/uL; Monocyte% 7.7 % (0-10); NRBC Flagged by Analyzer 0 % (0-5); Neutrophil # 5.63 X10^3/uL (2.7-7.7); Neutrophil % 76.1 % (47-70); Platelet Count 238 K/mm3 (150-450); RBC Distribution Width CV 12.2 % (11.6-14.6); Red Blood Count 4.92 M/mm3 (4.6-6.2); White Blood Count 7.4 K/mm3 (4.4-11.0)
--- NOTE | 2021-06-08 15:35 | RAD_ITS ---
STUDY: X-RAY CHEST REASON FOR EXAM: Male, 61 years old. Cough. Runny nose and sore throat. Headache and body aches since last night. TECHNIQUE: Single AP portable view of the chest. COMPARISON: 02/20/2021. FINDINGS: The lungs are clear and expanded. There is no demonstrated pleural abnormality. Normal size heart. Normal mediastinum and evaristo. Normal visualized pulmonary arteries. There is atherosclerotic calcification of the aortic arch with tortuosity. There are diffuse degenerative changes of the visualized thoracic spine. There is degenerative osteoarthritis of the bilateral shoulders. There is no demonstrated abnormality of the visualized soft tissue structures of the upper abdomen. RAD/Chest 1 View (Portable) IMPRESSION: PICC 2 there is no major interval change. Electronically Signed: Donovan Quiroz DO at 16:14 [id number] ,
[2021-06-08 15:44] LABS: ALB/GLOB Ratio 1.1 RATIO (0.9-2.4); AST(SGOT) 16 U/L (15-37); Alanine Aminotransfer ALT/SGPT 27 U/L (16-61); Albumin, Serum 3.7 g/dL (3.2-5.0); Alkaline Phosphatase 137 U/L (45-117); Anion Gap 7 (5-15); BUN 20 mg/dL (7-18); BUN/Creat Ratio 16.5 RATIO (10-20); Chloride 104 mmol/L (98-107); Creatinine, Serum 1.21 mg/dL (0.70-1.30); EST Glomerular Filtration Rate 65 mL/min (>60); Est Glom Filt Rate - Afr Amer 79 mL/min (>60); Estimated Creatinine Clearance 61.46 ml/min; Globulin 3.4 g/dL (2.2-4.2); Glucose 121 mg/dL (74-106); Potassium 3.9 mmol/L (3.5-5.1); Protein, Total 7.1 g/dL (6.4-8.2); Sodium Level 139 mmol/L (136-145)
[2021-06-08] MEDS: Ketorolac 30 MG/ML Syringe IV (16:18)
== END 2021-06-08 16:31 | disposition home or self-care (01) ==
PROVIDERS: Emergency Provider Emergency Medicine; PCP Family Medicine; Visit Provider Emergency Medicine
DX: B34.9 Viral infection, unspecified (principal); I48.0 Paroxysmal atrial fibrillation; E11.9 Type 2 diabetes mellitus without complications; J45.909 Unspecified asthma, uncomplicated; I10 Essential (primary) hypertension; E78.00 Pure hypercholesterolemia, unspecified; Z79.82 Long term (current) use of aspirin; Z79.899 Other long term (current) drug therapy; Z86.73 Personal history of transient ischemic attack (TIA), and cerebral infarction without residual deficits
CPT/HCPCS: 71045; 80053; 85025; 87426; 87804; 96374; 99282; A4216

== ENCOUNTER 2021-10-19 21:54 | Emergency (ER) | payer SELFPAY ==
[2021-10-19 21:55] VITALS: BP 197/114; PULSE 86; RESP 18; TEMP 36.6; O2SAT 95; BMI 37.5
[2021-10-19 22:04] VITALS: TEMP 37.5
--- NOTE | 2021-10-19 22:46 | EX.ED.DYSGE1 ---
HPI History of Present Illness Chief Complaint: Headache Narrative Narrative: Patient is a 61-year-old male with past medical history of type 2 diabetes and paroxysmal atrial fibrillation currently on Eliquis. He states he will get a headache once or twice a year that brings him to the ER for treatment. He states that he awoke this morning with a generalized headache that increased over the course of the day. He states that he also noticed over the last few days he has had some sinus congestion and drainage and cough with low-grade temperature. He states he went to his family doctor today who checked him for influenza and COVID which were both negative and started him on antibiotics for concern bronchitis/pneumonia. Patient states that he has not had any improvement of his headache this evening when he cannot sleep and therefore comes in for evaluation. [facility] Medical History Afib Asthma Asthma Asthma Atrial fibrillation Blurry vision Chronic GERD CVA (cerebral vascular accident) Diabetes Diabetes Essential hypertension GERD (gastroesophageal reflux disease) HTN (hypertension) Hyperlipidemia Hypertension Non-rheumatic tricuspid valve insufficiency Non-smoker Nonrheumatic mitral valve insufficiency ANI (obstructive sleep apnea) Paroxysmal atrial fibrillation Pure hypercholesterolemia Sleep apnea Stroke determined by clinical assessment Stroke/cerebrovascular accident Type 2 diabetes mellitus Type 2 diabetes mellitus Home Medications albuterol sulfate 1 - 2 puff INHALATION Q4H PRN PRN 12/04/14 [History Last Taken 04/09/18 06:00] montelukast 10 mg PO QHS 12/04/14 [History Last Taken 04/08/18] atorvastatin 80 mg PO QHS 10/22/16 [History Last Taken 04/08/18] apixaban 5 mg tablet 5 mg PO BID 06/12/17 [History Last Taken 04/09/18 06:00] amlodipine 5 mg PO DAILY #30 tab 02/20/21 [Rx Last Taken Unknown] aspirin 81 mg PO DAILY@0800 #30 tab 02/20/21 [Rx Last Taken Unknown] duloxetine 60 mg capsule,delayed release 60 mg PO cap 09/20/21 [History Last Taken Unknown] metformin 1,000 mg tablet 1,000 mg PO tab 09/20/21 [History Last Taken Unknown] metoprolol succinate 100 mg tablet,extended release 24 hr 100 mg PO tab 09/20/21 [History Last Taken Unknown] olmesartan 40 mg tablet 40 mg PO tab 09/20/21 [History Last Taken Unknown] pioglitazone 30 mg tablet 30 mg PO tab 09/20/21 [History Last Taken Unknown] prednisone 20 mg PO DAILY 5 Days #5 tab 10/19/21 [Rx Last Taken Unknown] Allergy/AdvReac Type Severity Reaction Status Date / Time No Known Allergies Allergy Verified 06/08/21 14:49 Family History Mother Heart disease Father Heart disease Diabetes Surgical History History of arthroscopic knee surgery Social History Smoking Status: Never smoker alcohol intake: current alcohol intake frequency: holidays/special occasions only substance use type: does not use caffeine: No what type of physical activity do you participate in: none ROS ROS ED Constitutional Constitutional ED: Reports chills, fever(s) and subjective ENT ENT ED: Reports rhinorrhea; Denies sore throat Cardiovascular Cardiovascular: Denies chest pain Respiratory/Chest Respiratory/Chest: Reports cough; Denies dyspnea Gastrointestinal Gastrointestinal: Denies abdominal pain, diarrhea, nausea or vomiting Genitourinary Genitourinary ED: Denies dysuria Musculoskeletal Musculoskeletal: Denies myalgias Integumentary Denies rash Neurologic Neurologic: Reports headache(s) Hematologic/Lymphatic Hematologic/Lymphatic: Reports easy bleeding and easy bruising EXAM Physical Exam Const Vital Signs: 10/19/21 21:55 10/19/21 22:04 Temperature 97.9 F 99.5 F H Temperature Source Temporal Oral Pulse Rate 86 Respiratory Rate 18 Blood Pressure 197/114 H Blood Pressure Mean 141 Pulse Ox 95 Oxygen Delivery Method Room Air Positive well nourished and well developed General Appearance ED: well developed Eyes PERRL and EOMs intact bilaterally Neck supple Neck Narrative: No meningeal signs Resp normal respiratory effort Resp Narrative: Breath sounds are diminished throughout with diffuse expiratory wheeze but no signs of respiratory distress Cardio regular rate and regular rhythm GI normal to inspection, nondistended, normoactive bowel sounds, non-tender, non-distended and no masses Auscultation: normoactive bowel sounds Palpation: soft Extremity normal to inspection Neuro oriented x3 and CN's II-XII intact bilaterally Neuro Narrative: Cranial nerves II through XII are grossly intact there are no focal neurologic deficit. No pronator drift no dysmetria no truncal ataxia. NIH stroke scale score of 0. Sensorium / Orientation: alert Motor Exam: strength 5/5 throughout Psych mental status grossly normal Skin no rashes or lesions noted MDM MDM MDM Narrative Medical decision making narrative: Patient presented to the ER hypertensive but this is consistent with his past medical history and the fact he is in pain as well as low-grade temperature which also affects his report of viral syndrome. He had a normal neurologic exam and no report or signs of trauma. We discussed the possible head CT because of his blood thinner use to ensure there is no spontaneous bleed. However patient states that this headache feels similar to his previous ones that have landed him in the ER and he does not want any type of imaging studies performed at this time. Therefore patient was given IV fluids Toradol Benadryl Reglan and Decadron secondary to his report of of sinus congestion and his wheezes. On reevaluation he reports his headache has improved to a value of a 2. His neuro exam remains normal. Therefore at this time as patient has a persistently normal neuro exam and resolution of headache I do not feel there is need for further work-up and patient will be discharged home. As he has reported sinus congestion and pressure and has wheezes I will put him on a 5-day course of 20 mg of oral prednisone daily Discharge Plan Triage Chief Complaint: Headache ED Provider: Chilango Lyn Dx/Rx/DC Orders Clinical Impression: Cephalgia, Type 2 diabetes mellitus, Essential hypertension Instructions: Understanding Headache Pain Prescriptions: New prednisone 20 mg tablet 20 mg PO DAILY 5 Days Qty: 5 RF: 0 No Action apixaban [Eliquis] 5 mg tablet 5 mg PO BID RF: 0 metformin 1,000 mg tablet 1,000 mg PO RF: 0 pioglitazone 30 mg tablet 30 mg PO RF: 0 olmesartan 40 mg tablet 40 mg PO RF: 0 metoprolol succinate 100 mg tablet extended release 24 hr 100 mg PO RF: 0 duloxetine 60 mg capsule,delayed release(DR/EC) 60 mg PO RF: 0 montelukast 10 MG tablet 10 mg PO QHS RF: 0 albuterol sulfate 1 PUFF inhaler 1 - 2 puff INHALATION Q4H PRN PRN (Reason: Asthma) RF: 0 atorvastatin 80 MG tablet 80 mg PO QHS RF: 0 aspirin 81 mg Tablet,Chewable 81 mg PO DAILY@0800 Qty: 30 RF: 0 amlodipine 5 mg tablet 5 mg PO DAILY Qty: 30 RF: 0 Primary Care Provider: Jennifer Aguayo Referrals: Jennifer Aguayo, [employer] REPA[employer] TECHNICIAN-C [Primary Care Provider] - Activity Restrictions/Additional Instructions: Please try to keep your fever under control with Tylenol as I do believe this will help you feel better. If headache returns once a day you may take 3 [id number] ibuprofen along with 2 [id number] Benadryl and drink fluids/water to see if this will help reduce the headache. You can do this treatment for the next 3 to 5 days if necessary. Otherwise please return to the ER should you have any further concerns Disposition Disposition: Home, Self Care
[2021-10-19] MEDS: dexAMETHasone 10 MG/ML Vial IV (22:53)
[2021-10-19] MEDS: DiphenhydrAMINE 50 MG/ML Syringe IV (22:53)
[2021-10-19] MEDS: Metoclopramide 10 MG/2 ML Vial IV (22:53)
[2021-10-19] MEDS: Ketorolac 15 MG/ML Vial IV (22:54)
[2021-10-20 00:02] VITALS: BP 175/102; PULSE 87; RESP 15; O2SAT 98
== END 2021-10-20 00:04 | disposition home or self-care (01) ==
PROVIDERS: Emergency Provider Emergency Medicine; PCP Nurse Practitioner Adult Health; Visit Provider Emergency Medicine
DX: R51.9 Headache, unspecified (principal); I48.0 Paroxysmal atrial fibrillation; E11.9 Type 2 diabetes mellitus without complications; I10 Essential (primary) hypertension; E78.5 Hyperlipidemia, unspecified; J45.909 Unspecified asthma, uncomplicated; K21.9 Gastro-esophageal reflux disease without esophagitis; G47.33 Obstructive sleep apnea (adult) (pediatric); Z79.01 Long term (current) use of anticoagulants; Z79.82 Long term (current) use of aspirin; Z79.899 Other long term (current) drug therapy; Z86.73 Personal history of transient ischemic attack (TIA), and cerebral infarction without residual deficits
CPT/HCPCS: 96374; 96375; 99282; J7030; A4216

== ENCOUNTER 2021-11-06 08:06 | Emergency (ER) | payer SELFPAY ==
[2021-11-06 08:07] VITALS: BP 177/96; PULSE 67; RESP 18; TEMP 35.5; O2SAT 99; BMI 37.3
--- NOTE | 2021-11-06 08:19 | CT_ITS ---
STUDY: CT ABDOMEN AND PELVIS WITH CONTRAST REASON FOR EXAM: Male, 61 years old. Lower abdominal pain. RADIATION DOSAGE (If Supplied By Facility): CTDIvol = ( 16.59 ) mGy, DLP = ( 1281.46 ) mGycm TECHNIQUE: Transaxial images were obtained from the dome of the diaphragm to the symphysis pubis without oral contrast. IV 100mL Isovue-300 was administered. Sagittal and coronal images were reconstructed. Individualized dose optimization techniques were used for this CT. COMPARISON: None. FINDINGS: The visualized lung bases are unremarkable. The visualized portions of the heart are within normal limits. Normal liver. Normal gallbladder and extrahepatic biliary system. Normal spleen. Normal pancreas. Normal bilateral adrenal glands. Mild right hydronephrosis and proximal right hydroureter with mild perinephric stranding due to 2 mm stone in the right ureterovesical junction. Normal left kidney. There is a small hiatal hernia. Normal small intestine. Normal colon. There is non-visualization of the appendix. Mild atherosclerotic calcifications of the abdominal aorta without evidence of aneurysm. Normal inferior vena cava. Normal retroperitoneum. The urinary bladder is not well-distended. There are prostatic calcifications. Very small umbilical hernia containing fat. Degenerative changes in the spine. CT/Abdomen/Pelvis W IV Cont ONLY IMPRESSION: Mild right hydronephrosis due to 2 mm stone in the right ureterovesical junction. Electronically Signed: Jeromy Panda MD at 10:21 EDT ,
--- NOTE | 2021-11-06 08:20 | ED.VIS.GI ---
HPI HPI - GI History of Present Illness Chief Complaint: Abd Pain Informant: patient Narrative Narrative: Patient's had pain in his lower abdomen for about 2 hours. It is hard for him to describe if it sharp dull or achy. He had first said it was right lower quadrant but then he says it is both sides. He has had some nausea no vomiting. He thought he was constipated. He states he has not moved his bowels in a while. But then he states he just moved his bowels before he came in. No blood or black. He evidently had some urinary difficulty after this started but he cannot define what that was. It was not painful to urinate though. He has no distal numbness tingling weakness. He does not and has not had any back pain with this. He has not been syncopal or presyncopal. He is on Eliquis for history of prior strokes. He has not noted any bleeding anywhere. He denies history of kidney stones. He denies any abdominal surgeries. No known diverticulitis. There is no pain above the umbilicus. Nothing makes it better or worse but nothing has yet been tried. [facility] Medical History Afib Asthma Asthma Asthma Atrial fibrillation Blurry vision Chronic GERD CVA (cerebral vascular accident) Diabetes Diabetes Essential hypertension GERD (gastroesophageal reflux disease) HTN (hypertension) Hyperlipidemia Hypertension Non-rheumatic tricuspid valve insufficiency Non-smoker Nonrheumatic mitral valve insufficiency ANI (obstructive sleep apnea) Paroxysmal atrial fibrillation Pure hypercholesterolemia Sleep apnea Stroke determined by clinical assessment Stroke/cerebrovascular accident Type 2 diabetes mellitus Type 2 diabetes mellitus Home Medications albuterol sulfate 90 mcg/actuation aerosol inhaler 1 - 2 puff inhalation Q4H PRN PRN Asthma 12/04/14 [History Last Taken 04/09/18 06:00] montelukast 10 mg tablet 10 mg PO QHS allergies 12/04/14 [History Last Taken 04/08/18] atorvastatin 80 mg tablet 80 mg PO QHS cholesterol 10/22/16 [History Last Taken 04/08/18] apixaban 5 mg tablet (Eliquis) 5 mg PO BID blood thinner 06/12/17 [History Last Taken 04/09/18 06:00] amlodipine 5 mg tablet 5 mg PO DAILY #30 tabs 02/20/21 [Rx Last Taken Unknown] aspirin 81 mg chewable tablet 81 mg PO DAILY@0800 #30 tabs 02/20/21 [Rx Last Taken Unknown] duloxetine 60 mg capsule,delayed release 60 mg PO 09/20/21 [History Last Taken Unknown] metformin 1,000 mg tablet 1,000 mg PO 09/20/21 [History Last Taken Unknown] metoprolol succinate 100 mg tablet,extended release 24 hr 100 mg PO 09/20/21 [History Last Taken Unknown] olmesartan 40 mg tablet 40 mg PO 09/20/21 [History Last Taken Unknown] pioglitazone 30 mg tablet 30 mg PO 09/20/21 [History Last Taken Unknown] prednisone 20 mg tablet 20 mg PO DAILY 5 days #5 tabs 10/19/21 [Rx Last Taken Unknown] ondansetron 4 mg disintegrating tablet 4 mg PO Q8H PRN nausea and vomiting #10 tabs 11/06/21 [Rx Last Taken Unknown] oxycodone-acetaminophen 5 mg-325 mg tablet (Percocet) 1 tab PO Q6H PRN pain 3 days #12 tabs 11/06/21 [Rx Last Taken Unknown] tamsulosin 0.4 mg capsule (Flomax) 0.4 mg PO DAILY #7 caps 11/06/21 [Rx Last Taken Unknown] Allergy/AdvReac Type Severity Reaction Status Date / Time No Known Allergies Allergy Verified 06/08/21 14:49 Family History Mother Heart disease Father Heart disease Diabetes Surgical History History of arthroscopic knee surgery Social History Smoking Status: Never smoker alcohol intake: current alcohol intake frequency: holidays/special occasions only substance use type: does not use caffeine: No what type of physical activity do you participate in: none ROS ROS ED Constitutional Constitutional ED: Denies chills or fever(s) ENT ENT ED: Denies rhinorrhea Cardiovascular Cardiovascular: Denies chest pain or palpitations Respiratory/Chest Respiratory/Chest: Denies cough or dyspnea Gastrointestinal Gastrointestinal: Reports abdominal pain and nausea; Denies vomiting Genitourinary Genitourinary ED: Reports other Details: See history of present illness. Nonspecific change or difficulty with urination this morning. ; Denies dysuria or hematuria Musculoskeletal Musculoskeletal: Denies back pain Integumentary Denies rash Neurologic Neurologic: Denies paresthesias or weakness Endocrine Endocrinology: Denies polydipsia or polyphagia Hematologic/Lymphatic Hematologic/Lymphatic: Reports easy bleeding and easy bruising Allergic/Immunologic Allergic/Immunologic ED: Denies urticaria EXAM Physical Exam Const Vital Signs: 11/06/21 08:07 11/06/21 09:55 Temperature 96 F L 97.6 F L Temperature Source Axillary Oral Pulse Rate 67 75 Respiratory Rate 18 16 Blood Pressure 177/96 H 184/99 H Blood Pressure Mean 123 127 Pulse Ox 99 100 Oxygen Delivery Method Room Air Room Air Positive well nourished, well developed and obese Constitutional Narrative: Patient does look a little bit uncomfortable. General Appearance ED: well developed; Negative for pallor Nutritional Appearance: obese HEENT Reports moist mucous membranes Eyes EOMs intact bilaterally Neck no JVD Resp normal respiratory effort and clear to auscultation bilaterally Cardio regular rate and regular rhythm GI non-distended and no masses GI Narrative: Mild obesity. Mild nonfocal generalized lower abdominal tenderness more on the right than the left. No rebound or guarding. No masses felt. No hernia felt. No CVA tenderness. Bowel sounds are normal. Auscultation: normoactive bowel sounds Palpation: soft Back/Spine no CVA tenderness Extremity full ROM General Extremety ED: Negative for edema or tenderness General Extremity: Negative for edema Neuro Sensorium / Orientation: alert Psych mental status grossly normal Skin General Skin Exam: Negative for jaundice or pallor MDM MDM MDM Narrative Medical decision making narrative: CBC shows no acute process. Electrolytes remarkable for creatinine 1.45. This is higher than his recent creatinine but he has had creatinines near this level in the past. Glucose is 220. LFTs lipase are normal. Urine shows large number of red cells but no white cells or significant signs of infection. I have looked at his CAT scan that does show a small distal ureteral stone at the right UVJ with some mild hydro-. I am waiting on final result of the CT. Patient did not get much relief at all with morphine. We gave him Dilaudid and Toradol and he is markedly better now. Nausea is gone. Pain is almost completely gone. I explained the diagnosis and plan. As long as he does not have any other acute process on his CT I think we can get him home with appropriate follow-up. We discussed reasons to return including nausea uncontrolled pain fever etc. We also discussed follow-up to make sure that he is improving and passing the stone. Final CT reading is 2 mm stone at right UVJ without any other marked abnormalities. We will get the patient home for follow-up. Lab Data Attestation: I reviewed the patient's lab results. Labs: Laboratory Results - last 24 hr 11/06/21 11/06/21 11/06/21 08:17 08:17 09:30 WBC 8.5 RBC 4.71 Hgb 14.1 Hct 43.3 MCV 91.9 MCH 29.9 MCHC 32.6 RDW Std Deviation 40.3 RDW Coeff of Valentina 12.0 Plt Count 244 MPV 10.2 Immature Gran % (Auto) 0.600 Neut % (Auto) 71.1 H Lymph % (Auto) 19.1 Maury % (Auto) 6.3 Eos % (Auto) 2.3 Baso % (Auto) 0.6 Absolute Neuts (auto) 6.1 Absolute Lymphs (auto) 1.63 Nucleated RBC % 0 Sodium 138 Potassium 4.5 Chloride 107 Carbon Dioxide 27.0 Anion Gap 4 L BUN 21 H Creatinine 1.45 H Estim Creat Clear Calc 49.50 Est GFR (MDRD) Af Amer 64 Est GFR (MDRD) Non-Af 53 L BUN/Creatinine Ratio 14.5 Glucose 220 H Calcium 8.9 Total Bilirubin 0.50 AST 16 ALT 31 Alkaline Phosphatase 115 Total Protein 6.7 Albumin 3.6 Globulin 3.1 Albumin/Globulin Ratio 1.2 Lipase 129 Urine Color Yellow Urine Clarity Sl. Cloudy Urine pH 5.0 Ur Specific Waldron 1.020 Urine Protein 30 H Urine Glucose (UA) 1000 H Urine Ketones 5 H Urine Occult Blood 250 H Urine Nitrite Negative Urine Bilirubin Negative Urine Urobilinogen Normal Ur Leukocyte Esterase Negative Urine RBC 50-100 SEEN Urine WBC 0 SEEN Ur Squamous Epith Cells 0-5 SEEN Urine Bacteria 0 SEEN Urine Mucus 0 SEEN Radiography Diagnostic Testing: Clinical Impression(s) from Imaging Studies Abdomen/Pelvis CT 11/06/21 08:19 IMPRESSION: Mild right hydronephrosis due to 2 mm stone in the right ureterovesical junction. Electronically Signed: Jeromy Panda MD at 10:21 EDT , Discharge Plan Triage Chief Complaint: Abd Pain ED Provider: Angel Urena Dx/Rx/DC Orders Clinical Impression: Kidney stone on right side, Colic, ureteral, Hematuria Instructions: ED Kidney Stone w/ Colic Prescriptions: New oxycodone-acetaminophen [Percocet] 5-325 mg tablet 1 tab PO Q6H PRN (Reason: pain) 3 Days Qty: 12 0RF ondansetron 4 mg tablet,disintegrating 4 mg PO Q8H PRN (Reason: nausea and vomiting) Qty: 10 0RF tamsulosin [Flomax] 0.4 mg capsule 0.4 mg PO DAILY Qty: 7 0RF No Action apixaban [Eliquis] 5 mg tablet 5 mg PO BID metformin 1,000 mg tablet 1,000 mg PO pioglitazone 30 mg tablet 30 mg PO olmesartan 40 mg tablet 40 mg PO metoprolol succinate 100 mg tablet extended release 24 hr 100 mg PO duloxetine 60 mg capsule,delayed release(DR/EC) 60 mg PO montelukast 10 MG tablet 10 mg PO QHS albuterol sulfate 1 PUFF inhaler 1 - 2 puff INHALATION Q4H PRN PRN (Reason: Asthma) atorvastatin 80 MG tablet 80 mg PO QHS aspirin 81 mg Tablet,Chewable 81 mg PO DAILY@0800 Qty: 30 0RF amlodipine 5 mg tablet 5 mg PO DAILY Qty: 30 0RF prednisone 20 mg tablet 20 mg PO DAILY 5 Days Qty: 5 0RF Primary Care Provider: Saturnino Cruz Referrals: Jalen Cruz DO [NON-STAFF] - Andreas Nascimento MD [STAFF PHYSICIAN] - 5-7 Days Disposition Disposition: Home, Self Care
[2021-11-06 08:28] LABS: Absolute Lymphocyte Count 1.63 X10^3/uL (0.83-4.51); Absolute Neutrophil Count 6.1 X10^3/uL (2.0-7.7); Basophil# 0.05 X10^3/uL; Basophil% 0.6 % (0-1); Eosinophils% 2.3 % (0-5); Hematocrit 43.3 % (40-54); Hemoglobin 14.1 g/dL (13.0-16.5); Lymphocyte # 1.63 X10^3/ul (0.83-4.51); Lymphocyte % 19.1 % (19-41); Mean Corp Hgb Conc 32.6 g/dL (32-36); Mean Corpuscular Hgb 29.9 pg (27.0-32.0); Mean Corpuscular Volume 91.9 fL (80-94); Mean Platelet Vol. 10.2 fl (6.2-12.0); Monocyte# 0.54 X10^3/uL; Monocyte% 6.3 % (0-10); NRBC Flagged by Analyzer 0 % (0-5); Neutrophil # 6.05 X10^3/uL (2.7-7.7); Neutrophil % 71.1 % (47-70); Platelet Count 244 K/mm3 (150-450); RBC Distribution Width SD 40.3 fl (35.1-43.9); Red Blood Count 4.71 M/mm3 (4.6-6.2); White Blood Count 8.5 K/mm3 (4.4-11.0)
[2021-11-06] MEDS: Morphine 4 MG/ML Syringe IV ×2 (08:28→09:26)
[2021-11-06] MEDS: 0.9% Normal Saline 1,000 ML 1000 ML IV (08:28)
[2021-11-06] MEDS: Ondansetron 4 MG/2 ML Vial IV (08:28)
[2021-11-06 08:46] LABS: ALB/GLOB Ratio 1.2 RATIO (0.9-2.4); AST(SGOT) 16 U/L (15-37); Alanine Aminotransfer ALT/SGPT 31 U/L (16-61); Albumin, Serum 3.6 g/dL (3.2-5.0); Alkaline Phosphatase 115 U/L (45-117); Anion Gap 4 (5-15); BUN 21 mg/dL (7-18); BUN/Creat Ratio 14.5 RATIO (10-20); Calcium,Total 8.9 mg/dL (8.5-10.1); Chloride 107 mmol/L (98-107); Creatinine, Serum 1.45 mg/dL (0.70-1.30); EST Glomerular Filtration Rate 53 mL/min (>60); Est Glom Filt Rate - Afr Amer 64 mL/min (>60); Globulin 3.1 g/dL (2.2-4.2); Glucose 220 mg/dL (74-106); Lipase 129 U/L (73-393); Potassium 4.5 mmol/L (3.5-5.1); Protein, Total 6.7 g/dL (6.4-8.2); Sodium Level 138 mmol/L (136-145)
[2021-11-06] MEDS: HYDROmorphone 1 MG/ML Syringe IV (09:41)
[2021-11-06 09:43] LABS: Bacteria 0 SEEN /hpf (None Seen); Mucous, Urine 0 SEEN /hpf (<or=2+); White Blood Cells 0 SEEN /hpf (0-5)
[2021-11-06] MEDS: Ketorolac 15 MG/ML Vial IV (09:43)
[2021-11-06 09:51] LABS: Color, Urine Yellow (Yellow); Glucose, Dipstick 1000 mg/dl (Normal); Ketone-Dipstick 5 mg/dl (Negative); Leukocyte Esterase-Dipstick Negative /ul (Negative); Nitrite-Dipstick Negative (Negative); Occult Blood-Urine 250 /ul (Negative); Protein-Dipstick 30 mg/dl (Negative); Urine Bilirubin Dipstick Negative (Negative); Urine Clarity Sl. Cloudy (Clear); Urine Urobilinogen Normal (Normal)
[2021-11-06 09:55] VITALS: BP 184/99; PULSE 75; RESP 16; TEMP 36.4; O2SAT 100
[2021-11-06 09:56] LABS: Red Blood Cells-Urine 50-100 SEEN /hpf (0-5); Squamous Epithelial Cells - UA 0-5 SEEN /hpf (0-5)
[2021-11-06 10:58] VITALS: BP 138/74; PULSE 67; RESP 17; O2SAT 98
== END 2021-11-06 10:58 | disposition home or self-care (01) ==
PROVIDERS: Emergency Provider Emergency Medicine; PCP Psychiatry & Neurology Vascular Neurology; Visit Provider Emergency Medicine
DX: N13.2 Hydronephrosis with renal and ureteral calculous obstruction (principal); I48.0 Paroxysmal atrial fibrillation; E11.9 Type 2 diabetes mellitus without complications; R31.9 Hematuria, unspecified; I10 Essential (primary) hypertension; E78.5 Hyperlipidemia, unspecified; K21.9 Gastro-esophageal reflux disease without esophagitis; E78.00 Pure hypercholesterolemia, unspecified; J45.909 Unspecified asthma, uncomplicated; G47.33 Obstructive sleep apnea (adult) (pediatric); Z79.82 Long term (current) use of aspirin; Z79.01 Long term (current) use of anticoagulants; Z86.73 Personal history of transient ischemic attack (TIA), and cerebral infarction without residual deficits
CPT/HCPCS: 74177; 80053; 81001; 83690; 85025; 96361; 96374; 96375; 96376; 99284; J7030; Q9967; A4216; J2405

== ENCOUNTER 2022-02-28 17:28 | Observation (INO) | payer MEDICAID, SELFPAY ==
[2022-02-28] VITALS (10 sets, daily range): BP systolic 156–225; BP diastolic 91–121; PULSE 69–100; RESP 15–20; TEMP 35.9–36.6; O2SAT 95–99; BMI 38.5; BMI 38.0
--- NOTE | 2022-02-28 18:07 | TELEMED_ITS ---
[facility] has confirmed receipt of a request for visit. This document confirms receipt of the order initiating the consult. To find the results of the consultation, please view the patient's reports for the scanned Telemed Consult.
--- NOTE | 2022-02-28 18:07 | EKG12_ITS ---
Test Reason : Blood Pressure : / mmHG Vent. Rate : 093 BPM Atrial Rate : 093 BPM P-R Int : 166 ms QRS Dur : 112 ms QT Int : 382 ms P-R-T Axes : 011 -33 -05 degrees QTc Int : 474 ms Normal sinus rhythm Left axis deviation Moderate voltage criteria for LVH, may be normal variant ( R in aVL , Bob product ) Poor R wave progression Abnormal ECG Confirmed by PENNY MEDINA, URSULA ([id number]), editor index FRIDA VALENZUELA ([id number]) on 03/02/2022 6:42:07 AM Referred By: Confirmed By:URSULA FRANCIS MD
--- NOTE | 2022-02-28 18:07 | CT_ITS ---
STUDY: CT BRAIN WITHOUT CONTRAST REASON FOR EXAM: Male, 61 years old. Neuro deficit, acute, stroke suspected RADIATION DOSAGE (If Supplied By Facility): CTDIvol = ( ) mGy, DLP = ( ) mGycm TECHNIQUE: Transaxial CT imaging of the brain was performed without administration of intravenous contrast material. Individualized dose optimization techniques were used for this CT. COMPARISON: 02/20/2021. FINDINGS: Normal soft tissue structures. Normal calvarium. Normal size ventricles and extra-axial spaces for the patient''s age. Normal white matter tracts of the cerebral hemispheres. There is no intracranial hemorrhage. There are no findings of an acute ischemic infarction. Chronic right occipital infarct. Small chronic left occipital infarct. Atherosclerotic calcification of the cavernous carotid and vertebrobasilar arteries. Normal visualized paranasal sinuses. CT/STROKE Brain/Head without Cont IMPRESSION: No acute findings. Chronic occipital infarcts. N.B. : The above Results were Read Back by Ambar Henry MD to Angel Urena MD, and understanding confirmed on 02/28/2022 18:39:35 (ET). Electronically Signed: Ambar Henry MD at 18:41 EDT Reading Location ID and State: [id number] / Tel , Service support ,
--- NOTE | 2022-02-28 18:09 | ED.VIS.STROK ---
HPI History of Present Illness Chief Complaint: Dizziness Informant: patient and spouse/S.O. Narrative Narrative: Patient states that yesterday about 3 PM he started to get dizzy. Sometimes it is vertiginous but sometimes is just an overall unsteadiness. He has had some mild intermittent nausea but no vomiting. This is similar to when he had a stroke about 7 years ago. He has no speech or numbness tingling weakness symptoms. 7 years ago he had visual loss. He still has some visual loss in both upper outer quadrants. But this is not changed or different today. Patient also does have a bit of a headache. He has a history of migraines and this does feel like a migraine. But he denies ever having a complex migraine. Patient did see his primary physician today for check of INR. He talked him about this dizziness. He was told that if it worsens he should come to the emergency department. He feels that it is getting a little worse so he did present now. [facility] Medical History Afib Asthma Asthma Asthma Atrial fibrillation Blurry vision Chronic GERD CVA (cerebral vascular accident) Diabetes Diabetes Essential hypertension GERD (gastroesophageal reflux disease) HTN (hypertension) Hyperlipidemia Hypertension Non-rheumatic tricuspid valve insufficiency Non-smoker Nonrheumatic mitral valve insufficiency ANI (obstructive sleep apnea) Paroxysmal atrial fibrillation Pure hypercholesterolemia Sleep apnea Stroke determined by clinical assessment Stroke/cerebrovascular accident Type 2 diabetes mellitus Type 2 diabetes mellitus Home Medications montelukast 10 mg tablet 10 mg PO QHS allergies 12/04/14 [History Last Taken 04/08/18] atorvastatin 80 mg tablet 40 mg PO QHS cholesterol 10/22/16 [History Last Taken 04/08/18] aspirin 81 mg chewable tablet 81 mg PO DAILY@0800 #30 tabs 02/20/21 [Rx Last Taken Unknown] duloxetine 60 mg capsule,delayed release 60 mg PO QHS 09/20/21 [History Last Taken Unknown] metformin 1,000 mg tablet 1,000 mg PO DAILY 09/20/21 [History Last Taken Unknown] metoprolol succinate 100 mg tablet,extended release 24 hr 50 mg PO DAILY 09/20/21 [History Last Taken Unknown] olmesartan 40 mg tablet 40 mg PO DAILY 09/20/21 [History Last Taken Unknown] pioglitazone 30 mg tablet 30 mg PO DAILY 09/20/21 [History Last Taken Unknown] duloxetine 30 mg capsule,delayed release 30 mg PO QHS 02/28/22 [History Last Taken Unknown] warfarin 6 mg tablet 6 mg PO DAILY 02/28/22 [History Last Taken Unknown] Allergy/AdvReac Type Severity Reaction Status Date / Time No Known Allergies Allergy Verified 02/28/22 17:31 Family History Mother Heart disease Father Heart disease Diabetes Surgical History History of arthroscopic knee surgery Social History Smoking Status: Never smoker alcohol intake: current alcohol intake frequency: holidays/special occasions only substance use type: does not use caffeine: No what type of physical activity do you participate in: none ROS ROS ED Constitutional Constitutional ED: Denies chills or fever(s) Eyes Eyes: Denies change in vision ENT ENT ED: Denies rhinorrhea or sore throat Cardiovascular Cardiovascular: Denies chest pain or palpitations Respiratory/Chest Respiratory/Chest: Denies cough Gastrointestinal Gastrointestinal: Reports nausea; Denies vomiting Genitourinary Genitourinary ED: Denies urinary frequency Musculoskeletal Musculoskeletal: Denies arthralgias, back pain, myalgias or neck pain Integumentary Denies rash Neurologic Neurologic: Reports headache(s) and other Details: See history of present illness peer ; Denies paresthesias or weakness Hematologic/Lymphatic Hematologic/Lymphatic: Reports easy bleeding, easy bruising and other Details: Coumadin was reportedly 2.2 this morning at about 8 AM. EXAM Physical Exam Const Vital Signs: 02/28/22 17:31 02/28/22 18:04 02/28/22 18:05 Temperature 97.4 F L Temperature Source Temporal Pulse Rate 100 90 Respiratory Rate 18 15 Respiratory Effort Normal Respiratory Pattern Normal Blood Pressure 180/108 H 156/102 H Blood Pressure Mean 132 120 Pulse Ox 95 96 Oxygen Delivery Method Room Air Room Air 02/28/22 18:07 02/28/22 20:00 Temperature Temperature Source Pulse Rate 83 Respiratory Rate 20 H Respiratory Effort Respiratory Pattern Blood Pressure 176/96 H Blood Pressure Mean 122 Pulse Ox 99 96 Oxygen Delivery Method Room Air Room Air Positive well nourished and well developed General Appearance ED: well developed and NAD HEENT Reports moist mucous membranes Eyes EOMs intact bilaterally Eyes Narrative: Visual fry are grossly normal by confrontation. Patient states he has some decreased vision in the right upper quadrant but is not different than normal. Neck no JVD Chest Wall inspection of chest normal Resp normal respiratory effort Cardio no murmurs Cardio Narrative: Patient does have a history of atrial fibrillation but appears to be in a sinus rhythm at this time Rate: regular rate Rhythm: regular rhythm GI normal to inspection, nondistended, normoactive bowel sounds and soft to palpation Back/Spine no CVA tenderness Extremity normal to inspection Neuro oriented x3 Neuro Narrative: Patient's NIH is 0. I did lay the patient back. I cannot reproduce or worsen his dizziness symptoms. There is no discoordination. Psych mental status grossly normal Skin no wounds MDM MDM MDM Narrative Medical decision making narrative: Imaging does not show any acute process. CBC is normal. INR is therapeutic at 2.3. Electrolytes are normal. Troponin is negative. Glucose is a little bit high. He does have a history of diabetes. Patient does feel better after treatment for migraine. The headache is gone and the dizziness is also better. We did have teleneurology see him. They still do recommend MRI. He states that the last time they thought his symptoms were due to a migraine but the MRI did show a stroke. For this reason he will be brought in the hospital for further evaluation. I discussed case with hospitalist. Lab Data Attestation: I reviewed the patient's lab results. Labs: Laboratory Results - last 24 hr 02/28/22 02/28/22 02/28/22 18:00 18:00 18:00 WBC 6.9 RBC 4.73 Hgb 14.1 Hct 42.7 MCV 90.3 MCH 29.8 MCHC 33.0 RDW Std Deviation 40.3 RDW Coeff of Valentina 12.1 Plt Count 262 MPV 10.3 Immature Gran % (Auto) 0.400 Neut % (Auto) 59.5 Lymph % (Auto) 27.1 [place] % (Auto) 8.1 Eos % (Auto) 4.2 Baso % (Auto) 0.7 Absolute Neuts (auto) 4.1 Absolute Lymphs (auto) 1.87 Nucleated RBC % 0 PT 24.8 H INR 2.3 APTT 35.5 Sodium 138 Potassium 4.1 Chloride 104 Carbon Dioxide 28.0 Anion Gap 6 BUN 20 H Creatinine 1.17 Estim Creat Clear Calc 63.56 Est GFR (MDRD) Af Amer 82 Est GFR (MDRD) Non-Af 68 BUN/Creatinine Ratio 17.1 Glucose 164 H Calcium 9.0 Troponin I High Sens 14 POC Glucose 02/28/22 18:17 WBC RBC Hgb Hct MCV MCH MCHC RDW Std Deviation RDW Coeff of Valentina Plt Count MPV Immature Gran % (Auto) Neut % (Auto) Lymph % (Auto) [place] % (Auto) Eos % (Auto) Baso % (Auto) Absolute Neuts (auto) Absolute Lymphs (auto) Nucleated RBC % PT INR APTT Sodium Potassium Chloride Carbon Dioxide Anion Gap BUN Creatinine Estim Creat Clear Calc Est GFR (MDRD) Af Amer Est GFR (MDRD) Non-Af BUN/Creatinine Ratio Glucose Calcium Troponin I High Sens POC Glucose 156 H Radiography Diagnostic Testing: Clinical Impression(s) from Imaging Studies Brain CT 02/28/22 18:07 IMPRESSION: No acute findings. Chronic occipital infarcts. N.B. : The above Results were Read Back by Ambar Henry MD to Angel Urena MD, and understanding confirmed on 02/28/2022 18:39:35 (ET). Electronically Signed: Ambar Henry MD at 18:41 EDT Reading Location ID and State: Do / Tel , Service support , ADDENDUM: 02/28/22 1848 IMPRESSION: No acute findings. Chronic occipital infarcts. N.B. : The above Results were Read Back by Ambar Henry MD to Angel Urena MD, and understanding confirmed on 02/28/2022 18:39:35 (ET). Electronically Signed: Ambar Henry MD at 18:41 EDT Reading Location ID and State: Do / Tel , Service support , Chest X-Ray 02/28/22 18:10 IMPRESSION: Normal x-ray examination of the chest. Electronically Signed: Ambar Henry MD at 18:29 EDT Reading Location ID and State: [id number] / Tel , Service support , Head/Neck CTA 02/28/22 20:21 IMPRESSION: No acute findings. Moderate basilar artery stenosis, no significant change. Electronically Signed: Ambar Henry MD at 21:15 EDT Reading Location ID and State: Do / Tel , Service support , ADDENDUM: 02/28/22 2154 IMPRESSION: No acute findings. Moderate basilar artery stenosis, no significant change. N.B. : The above Results were Read Back by Ambar Henry MD to Dr. Angel Urena MD, and understanding confirmed on 02/28/2022 21:47:28 (ET). Electronically Signed: Ambar Henry MD at 21:15 EDT Reading Location ID and State: [id number] / Tel , Service support , Chest x-ray, CT of the head and CTA head and neck read by radiology show no acute process. There is moderate basilar artery stenosis but this is not new or different from prior. Discharge Plan Triage Chief Complaint: Dizziness ED Provider: Angel Urena Dx/Rx/DC Orders Clinical Impression: Dizziness, History of stroke Prescriptions: No Action metformin 1,000 mg tablet 1,000 mg PO DAILY pioglitazone 30 mg tablet 30 mg PO DAILY olmesartan 40 mg tablet 40 mg PO DAILY metoprolol succinate 100 mg tablet extended release 24 hr 50 mg PO DAILY duloxetine 60 mg capsule,delayed release(DR/EC) 60 mg PO QHS montelukast 10 MG tablet 10 mg PO QHS atorvastatin 80 MG tablet 40 mg PO QHS aspirin 81 mg Tablet,Chewable 81 mg PO DAILY@0800 Qty: 30 0RF warfarin 6 mg Tablet 6 mg PO DAILY duloxetine 30 mg capsule,delayed release(DR/EC) 30 mg PO QHS Primary Care Provider: Molly Bridges Referrals: Molly Bridges [Primary Care Provider] - Disposition Disposition: Acute Care Hospital [facility]
--- NOTE | 2022-02-28 18:10 | RAD_ITS ---
STUDY: X-RAY CHEST REASON FOR EXAM: Male, 61 years old. Neuro deficit, acute, stroke suspected TECHNIQUE: Single frontal view of the chest. COMPARISON: 06/08/2021. FINDINGS: The lungs are clear and expanded. There is no demonstrated pleural abnormality. Normal size heart. Normal mediastinum and evaristo. Normal visualized pulmonary arteries. Normal visualized aortic arch and descending thoracic aorta. Normal visualized thoracic spine. Normal visualized ribs, clavicles, and shoulders. There is no demonstrated abnormality of the visualized soft tissue structures of the upper abdomen. RAD/Chest 1 View IMPRESSION: Normal x-ray examination of the chest. Electronically Signed: Ambar Henry MD at 18:29 EDT Reading Location ID and State: [id number] / Tel , Service support ,
[2022-02-28 18:17] LABS: Absolute Lymphocyte Count 1.87 X10^3/uL (0.83-4.51); Absolute Neutrophil Count 4.1 X10^3/uL (2.0-7.7); Basophil# 0.05 X10^3/uL; Basophil% 0.7 % (0-1); Eosinophil# 0.29 X10^3/uL; Eosinophils% 4.2 % (0-5); Hematocrit 42.7 % (40-54); Hemoglobin 14.1 g/dL (13.0-16.5); Lymphocyte # 1.87 X10^3/ul (0.83-4.51); Lymphocyte % 27.1 % (19-41); Mean Corpuscular Hgb 29.8 pg (27.0-32.0); Mean Corpuscular Volume 90.3 fL (80-94); Mean Platelet Vol. 10.3 fl (6.2-12.0); Monocyte# 0.56 X10^3/uL; Monocyte% 8.1 % (0-10); NRBC Flagged by Analyzer 0 % (0-5); Neutrophil # 4.11 X10^3/uL (2.7-7.7); Neutrophil % 59.5 % (47-70); Platelet Count 262 K/mm3 (150-450); RBC Distribution Width CV 12.1 % (11.6-14.6); RBC Distribution Width SD 40.3 fl (35.1-43.9); Red Blood Count 4.73 M/mm3 (4.6-6.2); White Blood Count 6.9 K/mm3 (4.4-11.0)
[2022-02-28] MEDS: DiphenhydrAMINE 50 MG/ML Syringe 25 MG IV (18:21)
[2022-02-28] MEDS: Metoclopramide 10 MG/2 ML Vial IV (18:21)
[2022-02-28 18:25] LABS: International Normalized Ratio 2.3; Partial Thromboplast Time 35.5 Seconds (24.1-36.2); Prothrombin Time (Protime)PT. 24.8 SECONDS (11.7-14.9)
[2022-02-28 18:39] LABS: Anion Gap 6 (5-15); BUN 20 mg/dL (7-18); BUN/Creat Ratio 17.1 RATIO (10-20); Chloride 104 mmol/L (98-107); Creatinine, Serum 1.17 mg/dL (0.70-1.30); EST Glomerular Filtration Rate 68 mL/min (>60); Est Glom Filt Rate - Afr Amer 82 mL/min (>60); Estimated Creatinine Clearance 63.56 ml/min; Glucose 164 mg/dL (74-106); Potassium 4.1 mmol/L (3.5-5.1); Sodium Level 138 mmol/L (136-145); Troponin-I HS 14 pg/mL (3.0-78.0)
[2022-02-28 18:40] LABS: Bedside Glucose 156 mg/dL (74-106)
--- NOTE | 2022-02-28 19:18 | ED.RN ---
NIH DISCONTINUED PER
--- NOTE | 2022-02-28 20:08 | ED.RN ---
THIS RN AT BEDSIDE TO ASSIST WITH [facility].
--- NOTE | 2022-02-28 20:21 | CT_ITS ---
We are attempting to reach an attending provider to discuss findings. An addendum with communication details will be sent when the communication is complete. STUDY: CTA HEAD AND NECK WITH CONTRAST REASON FOR EXAM: Male, 61 years old. Neuro deficit, acute, stroke suspected RADIATION DOSAGE (If Supplied By Facility): CTDIvol = ( 20.29 ) mGy, DLP = ( 802.20 ) mGycm TECHNIQUE: CT angiography was performed with a multi-detector CT scanner. Data acquisition was obtained from the skull base through the vertex following intravenous administration of IV 100mL [id number]-370. MIP images were reconstructed from the axial data set. Post-processing of the angiographic images was performed, with multiplanar reformation and 3D reconstruction. Individualized dose optimization techniques were used for this CT. COMPARISON: 02/20/2021. FINDINGS: Normal bilateral petrous carotid arteries. Atherosclerotic calcification of the cavernous carotid arteries without stenosis. Normal anterior cerebral arteries. Normal intact anterior communicating artery (ACOM). Normal middle cerebral arteries. There is non-visualization of the right posterior communicating artery (PCOM). There is non-visualization of the left posterior communicating artery (PCOM). Atherosclerotic calcification of the vertebral and proximal basilar arteries. 1.3 cm moderate stenosis of the basilar artery. No significant change from the prior study. The visualized bilateral superior cerebellar (SCA) arteries are normal. Normal bilateral P1, P2 and visualized P3 segments of the posterior cerebral arteries. There is no demonstrated aneurysm of the [place] of [place]. AORTIC ARCH: Normal visualized aortic arch. Normal origins of the brachiocephalic, left common carotid, and left subclavian arteries. RIGHT CAROTID ARTERIES: Normal right common carotid artery (CCA). Normal right common carotid bulb. Normal origin of the right internal carotid (ICA) artery without stenosis. Normal visualized cervical portion of the right internal carotid artery. Normal origin of the right external carotid artery (ECA). LEFT CAROTID ARTERIES: Normal left common carotid artery (CCA). Mild atherosclerotic calcification of the left carotid bulb without stenosis. No change. Normal origin of the left internal carotid (ICA) artery without stenosis. Normal visualized cervical portion of the left internal carotid artery. Normal origin of the left external carotid artery (ECA). VERTEBRAL ARTERIES: Normal bilateral vertebral arteries. CT/STROKE CTA Head AND Neck W/Con IMPRESSION: No acute findings. Moderate basilar artery stenosis, no significant change. Electronically Signed: Ambar Henry MD at 21:15 EDT Reading Location ID and State: [id number] / Tel , Service support ,
[2022-02-28] MEDS: Labetalol (Prefilled) 20 MG/4 ML IV (22:01)
--- NOTE | 2022-02-28 22:30 | HP.PCM_ITS ---
HPI - General General Date of Admission: 02/28/22 Date of Service: 02/28/22 Chief Complaint: Dizziness HPI Narrative MONICA AHMADI, is a 61 M who presents to the emergency room with chief complaint of dizziness. Patient has significant past medical history of stroke 7 years ago due to atrial fibrillation and was subsequently placed on Eliquis. Recently patient has had a misfortune of loss of job and has lost his insurance and has changed to Coumadin for anticoagulation therapy. He states this dizziness is similar to the way he felt and his previous stroke. His Coumadin was found to be at therapeutic level at this time. Patient denies any chest pains, shortness of breath, fevers or chills, headache. He does have hypertension with systolic blood pressure ranging from 180-200 which has been treated in the emergency room. Currently, the patient has an NIH score of 0 but due to history of stroke we will admit patient for observation and get an MRI in the morning. He admits to a lot of social stressors including divorce and loss of job recently which may add to his current presentation. [facility] Medical History Afib Asthma Asthma Asthma Atrial fibrillation Blurry vision Chronic GERD CVA (cerebral vascular accident) Diabetes Diabetes Essential hypertension GERD (gastroesophageal reflux disease) HTN (hypertension) Hyperlipidemia Hypertension Non-rheumatic tricuspid valve insufficiency Non-smoker Nonrheumatic mitral valve insufficiency ANI (obstructive sleep apnea) Paroxysmal atrial fibrillation Pure hypercholesterolemia Sleep apnea Stroke determined by clinical assessment Stroke/cerebrovascular accident Type 2 diabetes mellitus Type 2 diabetes mellitus Home Medications montelukast 10 mg tablet 10 mg PO QHS allergies 12/04/14 [History Last Taken 04/08/18] atorvastatin 80 mg tablet 40 mg PO QHS cholesterol 10/22/16 [History Last Taken 04/08/18] aspirin 81 mg chewable tablet 81 mg PO DAILY@0800 #30 tabs 02/20/21 [Rx Last Taken Unknown] duloxetine 60 mg capsule,delayed release 60 mg PO QHS 09/20/21 [History Last Taken Unknown] metformin 1,000 mg tablet 1,000 mg PO DAILY 09/20/21 [History Last Taken Unknown] metoprolol succinate 100 mg tablet,extended release 24 hr 50 mg PO DAILY 09/20/21 [History Last Taken Unknown] olmesartan 40 mg tablet 40 mg PO DAILY 09/20/21 [History Last Taken Unknown] pioglitazone 30 mg tablet 30 mg PO DAILY 09/20/21 [History Last Taken Unknown] duloxetine 30 mg capsule,delayed release 30 mg PO QHS 02/28/22 [History Last Taken Unknown] warfarin 6 mg tablet 6 mg PO DAILY 02/28/22 [History Last Taken Unknown] Allergy/AdvReac Type Severity Reaction Status Date / Time No Known Allergies Allergy Verified 02/28/22 17:31 Family History Mother Heart disease Father Heart disease Diabetes Surgical History History of arthroscopic knee surgery Social History Smoking Status: Never smoker alcohol intake: current alcohol intake frequency: holidays/special occasions only substance use type: does not use caffeine: No what type of physical activity do you participate in: none ROS Constitutional Constitutional: Denies chills or fever(s) Eyes Eyes: Denies blurry vision or change in vision ENT HEENT: Denies abnormal hearing Cardiovascular Cardiovascular: Denies chest pain Respiratory/Chest Respiratory/Chest: Denies shortness of breath at rest Gastrointestinal Gastrointestinal: Denies abdominal pain Genitourinary Genitourinary: Denies dysuria Musculoskeletal Musculoskeletal: Denies back pain Integumentary Integumentary: Denies dry skin Neurologic Neurologic: Reports dizziness Psychiatric Psychiatric: Denies depression Vital Signs Vital Signs Vital Signs: 02/28/22 17:31 02/28/22 18:04 02/28/22 18:05 Temperature 97.4 F L Temperature Source Temporal Pulse Rate 100 90 Respiratory Rate 18 15 Respiratory Effort Normal Respiratory Pattern Normal Blood Pressure 180/108 H 156/102 H Blood Pressure Mean 132 120 Pulse Ox 95 96 Oxygen Delivery Method Room Air Room Air 02/28/22 18:07 02/28/22 20:00 02/28/22 21:15 Temperature Temperature Source Pulse Rate 83 Respiratory Rate 20 H Respiratory Effort Respiratory Pattern Blood Pressure 176/96 H 191/115 H Blood Pressure Mean 122 140 Pulse Ox 99 96 Oxygen Delivery Method Room Air Room Air 02/28/22 21:40 02/28/22 22:08 Temperature 98 F Temperature Source Temporal Pulse Rate 73 Respiratory Rate 18 Respiratory Effort Respiratory Pattern Blood Pressure 225/121 H 189/109 H Blood Pressure Mean 155 135 Pulse Ox 96 Oxygen Delivery Method Room Air Weight Weight: 246 lb 4.101 oz Body Mass Index (BMI) 38.5 Physical Exam Const alert, oriented x3 and no apparent distress General Appearance: cooperative HEENT normocephalic and head/scalp atraumatic Eyes PERRL and EOMs intact bilaterally Neck no lymphadenopathy and supple Lymph Lymphatic: no lymphadenopathy noted Resp normal respiratory effort, normal air movement and clear to auscultation bilaterally Cardio regular rate, regular rhythm, S1 normal heart sound, S2 normal heart sound and no murmurs GI normal to inspection, nondistended, normoactive bowel sounds Extremity normal capillary refill Skin General Skin Exam: no breakdown Neuro CN's II-XII intact bilaterally Psych thought process normal, cooperative and affect normal Appearance: appropriate Results Lab / Micro Data Result Diagrams: 02/28/22 18:00 02/28/22 18:00 Labs: Laboratory Results - last 24 hr 02/28/22 18:00: WBC 6.9, RBC 4.73, Hgb 14.1, Hct 42.7, MCV 90.3, MCH 29.8, MCHC 33.0, RDW Std Deviation 40.3, RDW Coeff of Valentina 12.1, Plt Count 262, MPV 10.3, Immature Gran % (Auto) 0.400, Neut % (Auto) 59.5, Lymph % (Auto) 27.1, [place] % (Auto) 8.1, Eos % (Auto) 4.2, Baso % (Auto) 0.7, Absolute Neuts (auto) 4.1, Absolute Lymphs (auto) 1.87, Nucleated RBC % 0 02/28/22 18:00: PT 24.8 H, INR 2.3, APTT 35.5 02/28/22 18:00: Sodium 138, Potassium 4.1, Chloride 104, Carbon Dioxide 28.0, Anion Gap 6, BUN 20 H, Creatinine 1.17, Estim Creat Clear Calc 63.56, Est GFR (MDRD) Af Amer 82, Est GFR (MDRD) Non-Af 68, BUN/Creatinine Ratio 17.1, Glucose 164 H, Calcium 9.0, Troponin I High Sens 14 02/28/22 18:17: POC Glucose 156 H Radiology Impression Brain CT 02/28/22 18:07 IMPRESSION: No acute findings. Chronic occipital infarcts. N.B. : The above Results were Read Back by Ambar Henry MD to Angel Urena MD, and understanding confirmed on 02/28/2022 18:39:35 (ET). Electronically Signed: Ambar Henry MD at 18:41 EDT Reading Location ID and State: Do / Tel , Service support , ADDENDUM: 02/28/22 1848 IMPRESSION: No acute findings. Chronic occipital infarcts. N.B. : The above Results were Read Back by Ambar Henry MD to Angel Urena MD, and understanding confirmed on 02/28/2022 18:39:35 (ET). Electronically Signed: Ambar Henry MD at 18:41 EDT Reading Location ID and State: Do / Tel , Service support , Chest X-Ray 02/28/22 18:10 IMPRESSION: Normal x-ray examination of the chest. Electronically Signed: Ambar Henry MD at 18:29 EDT Reading Location ID and State: Do / Tel , Service support , Head/Neck CTA 02/28/22 20:21 IMPRESSION: No acute findings. Moderate basilar artery stenosis, no significant change. Electronically Signed: Ambar Henry MD at 21:15 EDT Reading Location ID and State: Do / Tel , Service support , ADDENDUM: 02/28/22 2154 IMPRESSION: No acute findings. Moderate basilar artery stenosis, no significant change. N.B. : The above Results were Read Back by Ambar Henry MD to Dr. Angel Urena MD, and understanding confirmed on 02/28/2022 21:47:28 (ET). Electronically Signed: Ambar Henry MD at 21:15 EDT Reading Location ID and State: [id number] / Tel , Service support , Assessment & Plan Assessment/Plan (1) Dizziness: (2) History of stroke: (3) ANI (obstructive sleep apnea): (4) Essential hypertension: (5) Pure hypercholesterolemia: (6) Type 2 diabetes mellitus: (7) Chronic GERD: PLAN: Plan 1. Dizziness with history of stroke. Patient will be admitted to progressive care unit, placed on stroke protocol including neurochecks, and will get MRI of the head in the morning. We will continue stroke protocol blood pressure management as well. 2. Hypertension as above will be controlled during the stroke protocol regimen 3. Hyperlipidemia?continue statin 4. Type 2 diabetes?continue home regimen 5. GERD?continue PPI 6. DVT prophylaxis?patient is on Coumadin and will monitor INR Charges/Coding Visit Charges OBSV E&M: 43343 Initial observation care L2
[2022-03-01] VITALS (10 sets, daily range): BP systolic 150–188; BP diastolic 84–100; PULSE 58–75; RESP 16–18; TEMP 36.1–36.6; O2SAT 95–97; BMI 38.0
[2022-03-01 05:56] LABS: Cholesterol 122 mg/dL (200); High Density Lipoprotein 56 mg/dL; Triglycerides 158 mg/dL; Very Low Density Lipoprotein 32 mg/dL (5-40)
--- NOTE | 2022-03-01 08:52 | ECHOD_ITS ---
Reason For Study: TIA/ CVA Procedure This was a 2D Doppler, Color Flow transthoracic echocardiogram. Exam performed portable in patient room. Left Ventricle Normal LV size. Apical false tendon noted. Left ventricular systolic function is normal. The estimated ejection fraction is 55 %. No evidence for diastolic dysfunction. No regional wall motion abnormalities noted. Right Ventricle Normal RV size. Normal systolic function. Atria Normal left atrium. Normal right atrium. No doppler evidence for ASD. Bubble contrast study negative for right to left interatrial shunt. Mitral Valve There is no mitral annular calcification. Normal mitral valve. Mild (1+) mitral valve insufficiency. Tricuspid Valve Normal tricuspid valve. Mild tricuspid valve insufficiency. Right ventricular systolic pressure estimated to be 25 mmHg. Aortic Valve Trisinus/trileaflet aortic valve. Mild focal aortic valve calcification. Trivial aortic valve insufficiency. Pulmonic Valve The pulmonic valve is not well visualized. Mild (1+) pulmonic valve insufficiency. Great Vessels Normal sized aortic root. Pericardium/Pleural No pericardial effusion. Medication Performed a rapid injection of agitated mix of 9 cc saline and 1cc air to assess for atrial septal defect. MMode/2D Measurements & Calculations LVIDd: 5.3 cm IVSd: 1.2 cm Ao root diam: 3.3 cm LVIDs: 3.8 cm LVPWd: 1.0 cm RVDd: 3.6 cm FS: 28.2 % LAV(MOD-bp): 52.8 ml LVAd ap4: 37.8 cm2 SV(MOD-sp4): 71.2 ml LAV(MOD-bp) Indexed: 24.0 ml/m2 LVLd ap4: 8.5 cm LAV(MOD-sp2): 49.7 ml EDV(MOD-sp4): 133.7 ml LAV(MOD-sp4): 48.8 ml EDV(sp4-el): 142.8 ml LVAs ap4: 23.5 cm2 LVLs ap4: 7.1 cm ESV(MOD-sp4): 62.5 ml ESV(sp4-el): 66.2 ml EF(MOD-sp4): 53.3 % EF(sp4-el): 53.6 % SV(sp4-el): 76.6 ml LA A4 area: 17.1 cm2 LA dimension(2D): 4.6 cm RA A4 area: 14.2 cm2 Time Measurements MV dec time: 0.24 sec Doppler Measurements & Calculations MV E max chuck: 46.6 cm/sec Lat Peak E' Chuck: 5.3 cm/sec Med Peak E' Chuck: 4.2 cm/sec MV A max chuck: 103.0 cm/sec E/E' lat: 8.7 E/E' med: 11.1 MV E/A: 0.45 Ao V2 max: 98.2 cm/sec LV V1 max: 91.3 cm/sec PA V2 max: 78.5 cm/sec Ao max P.9 mmHg LV V1 max P.3 mmHg TR max chuck: 235.7 cm/sec TR max P.3 mmHg ECHO/Echo Complete Interpretation Summary Left ventricular systolic function is normal. The estimated ejection fraction is 55 %. Apical false tendon noted. Mild (1+) mitral valve insufficiency. Mild tricuspid valve insufficiency. Mild focal aortic valve calcification. Trivial aortic valve insufficiency. Mild (1+) pulmonic valve insufficiency. Right ventricular systolic pressure estimated to be 25 mmHg. No evidence for diastolic dysfunction. Bubble contrast study negative for right to left interatrial shunt. Ordering Physician: Kristel Mccartney Referring Physician: USAMA JENNINGS Performed By: Kamille Hopkins RDCS
--- NOTE | 2022-03-01 09:55 | NURSING ---
Pt to MRI via MRI staff
--- NOTE | 2022-03-01 10:00 | MRI_ITS ---
STUDY: MRI BRAIN WITHOUT CONTRAST REASON FOR EXAM: Male, 61 years old. dizziness, whaley, prev cva TECHNIQUE: Standardized multiplanar fat and water weighted pulse sequences were obtained. COMPARISON: 02/20/2021, CT 02/28/2022 FINDINGS: There is mild cerebral atrophy with widening of the extra-axial spaces and ventricular dilatation. There are a limited number of small white matter hyperintensities, distributed throughout the deep white matter tracts of the cerebral hemispheres, consistent with mild chronic white matter ischemic changes. Encephalomalacia of the inferior right occipital lobe consistent with chronic infarct. There is no evidence for recent intracranial ischemia or other cause of cytotoxic edema on diffusion weighted imaging (DWI). Normal T2* images of the brain without demonstrated susceptibility artifact. There is no demonstrated hemosiderin stain. Normal bilateral basal ganglia. Normal thalami. There is no extra-axial fluid accumulation. Normal flow voids within the major intracranial circulation suggesting patency by spin echo criteria. Normal sella turcica, pituitary gland, infundibular stalk, optic chiasm and hypothalamus. Normal tectal plate and pineal gland. Normal midbrain, nicola and medulla. Normal cerebellum. Normal basal cisterns. Normal bilateral temporal bones. Normal bilateral internal auditory canals. No demonstrated orbital abnormality, within the constraints of a routine brain study. Normal visualized paranasal sinuses. Normal calvarium and skull base. Normal visualized soft tissue structures. Normal visualized upper cervical spine. MRI/Brain without Contrast IMPRESSION: Involutional changes of the brain, as described above. No acute infarct. Electronically Signed: Kenny Cisneros MD at 12:42 EDT ,
[2022-03-01] MEDS: Metoprolol(XL)Succ 50 MG Tablet PO (11:49)
[2022-03-01] MEDS: Losartan Potassium 100 MG Tablet PO (11:49)
[2022-03-01] MEDS: Pioglitazone Hydrochloride 30 MG Tablet PO (11:50)
[2022-03-01] MEDS: DULoxetine Hcl 60 MG Capsule PO (11:50)
[2022-03-01] MEDS: metFORMIN HCl 1,000 MG Tablet 1000 MG PO (11:50)
[2022-03-01] MEDS: Aspirin 81 MG TAB.CHEW PO (11:50)
--- NOTE | 2022-03-01 11:51 | CHAPLAIN ---
Type of Pastoral Visit _x__ Initial Visit ___ Follow-up Visit ___ On-call Visit ___ General Patient Visit ___ Spiritual Assessment ___ Family Conference ___ Bereavement ___ Rapid Response ___ Code Blue ___ Other (describe below) Pastoral Care Referral From __x_ Patient ___ Family ___ Nurse ___ Physician ___ Bander And Cellophaner Machine ___ Filling Layer Up ___ Other (describe below) Sacrament/Intervention _x__ Active listening ___ Anointing ___ Scientologist ___ Bereavement ___ Communion ___ Lary exploration ___ ___ Life review ___ Prayer ___ Reconciliation ___ Sacrament of Sick ___ Supportive presence ___ Wedding ___ Other (describe below) Pastoral Comments patient is resting in bed and spouse is at bedside; pt states that this is not his first experience with heart issues and health concerns but he is waiting to see what Doctors find and what is next; pt says he has no other needs at this time; offer of future support as desired
--- NOTE | 2022-03-01 13:09 | CASEMGMT ---
Per therapy notes, no further therapy needed for pt at discharge. SStmannie KEY CM
--- NOTE | 2022-03-01 15:35 | DCINST_ITS ---
Discharge Instructions Diet Discharge Diet: 2000 mg Sodium Diet Activity Discharge Activity: Return to Normal Activity Follow Up Care Test Results: Test results from this visit will be discussed in further detail at your follow- up appointment, if applicable. Discharge Plan Admission Admit Date/Time: 02/28/22 22:35 Primary Reason for Your Visit: Dizziness Attending Provider: Kristel Mccartney Primary Care Provider: Molly Bridges Consulting Providers: Rafita Fritz Instructions Patient Instructions: ED Hypertension, Established, ED Vertigo, Unspecified Additional Instructions / Restrictions: *Please take this with you to your next doctors appointment* -Your INR on the day of discharge was 2.3 -Given your new insurance you qualify to go back on Eliquis, you reported you picked up a script and have this available at home -Please discontinue your coumadin and you will need your INR checked in 2 days, once it is below 2.0 you will need to begin your eliquis. Given the need for blood work and timing, please call your primary care physician in the morning to coordinate lab work and follow up. The lab work will need ordered by your primary physician -Your blood pressure has been consistently high despite being on an chai inhibitor and beta adrian. You will be discharged on amlodipine 10 mg, an additional blood pressure medication. It is important that you take all three of these. -Please take your blood pressure daily. If your blood pressure is consistently higher than 160/90 for >2 days, please call your primary care physician's office. -Call 911 if you have any of these: --Blood pressure of 180/120 or higher and any other symptoms linked to organ damage. ---These include: ---Unusual chest pain or shortness of breath ---Weakness of an arm or leg or one side of the face ---Problems speaking or seeing ---Severe headache ---Sudden severe pain in your belly (abdomen) or back ---Extreme drowsiness, confusion, or fainting ---Passing out or seizures ---Severe dizziness or spinning feeling (vertigo) that doesn't go away -Please call your primary care provider's office upon discharge to schedule a hospital follow up within 1 week. -Your dizziness may be due to an inner ear problem. If your symptoms return, please follow with Vestibular Rehab. A script will be provided for your on discharge. -For any concerning signs or symptoms please call 911 or proceed to the nearest emergency department Discharge Orders/Prescriptions Prescriptions: New Eliquis 5 mg tablet 5 mg PO BID 30 Days Qty: 60 0RF Rx Instructions: Pt already has supply Continued metformin 1,000 mg tablet 1,000 mg PO DAILY pioglitazone 30 mg tablet 30 mg PO DAILY olmesartan 40 mg tablet 40 mg PO DAILY metoprolol succinate 100 mg tablet extended release 24 hr 50 mg PO DAILY duloxetine 60 mg capsule,delayed release(DR/EC) 60 mg PO BID montelukast 10 MG tablet 10 mg PO QHS atorvastatin 80 MG tablet 40 mg PO QHS aspirin 81 mg Tablet,Chewable 81 mg PO DAILY@0800 Qty: 30 0RF Discontinued warfarin 6 mg Tablet 6 mg PO DAILY Referrals / Follow Up: Molly Bridges [Primary Care Provider] - Within 1 Week Disposition Disposition (needs filled in before D/C Order can be placed): Home, Self Care
--- NOTE | 2022-03-01 15:51 | CASEMGMT ---
Per Dr. Mccartney, pt to be sent with script for vestibular therapy and this was provided to pt at this time. Pt voices no further questions/concerns/needs. Terence KEY CM
--- NOTE | 2022-03-01 17:22 | PCM.DC.SUM ---
Providers Date of Admission: 02/28/22 Date of Discharge: 03/01/22 Primary Care Physician: Dr. Molly Bridges Reason For Visit: DIZZINESS Diagnosis Discharge Diagnosis (1) Dizziness: Status: Acute Code(s): R42 - Dizziness and giddiness (2) History of stroke: Status: Acute Code(s): Z86.73 - Personal history of transient ischemic attack (TIA), and cerebral infarction without residual deficits (3) ANI (obstructive sleep apnea): Status: Chronic Code(s): G47.33 - Obstructive sleep apnea (adult) (pediatric) (4) Essential hypertension: Status: Chronic Code(s): I10 - Essential (primary) hypertension (5) Pure hypercholesterolemia: Status: Chronic Code(s): E78.00 - Pure hypercholesterolemia, unspecified (6) Type 2 diabetes mellitus: Status: Chronic Code(s): E11.9 - Type 2 diabetes mellitus without complications (7) Chronic GERD: Status: Chronic Code(s): K21.9 - Gastro-esophageal reflux disease without esophagitis Medications at Discharge Home Medications montelukast 10 mg tablet 10 mg PO QHS allergies 12/04/14 atorvastatin 80 mg tablet 40 mg PO QHS cholesterol 10/22/16 aspirin 81 mg chewable tablet 81 mg PO DAILY@0800 #30 tabs 02/20/21 duloxetine 60 mg capsule,delayed release 60 mg PO BID 09/20/21 metformin 1,000 mg tablet 1,000 mg PO DAILY 09/20/21 metoprolol succinate 100 mg tablet,extended release 24 hr 50 mg PO DAILY 09/20/21 olmesartan 40 mg tablet 40 mg PO DAILY 09/20/21 pioglitazone 30 mg tablet 30 mg PO DAILY 09/20/21 amlodipine 10 mg tablet 10 mg PO DAILY #30 tabs 03/01/22 apixaban 5 mg tablet (Eliquis) 5 mg PO BID 30 days #60 tabs 03/01/22 Hospital Course Procedures Transthoracic echo Summary of Care Provided Minutes Spent on Discharge: 31 Hospital Course: Mr. Arteaga is a 61-year-old male with history of hypertension, A. fib on anticoagulation, type 2 diabetes, CVA 7 years ago, ANI who presented to [facility] 02/28/2022 with complaints of dizziness. He had symptoms start 3 PM the day prior to presentation and felt the room was spinning which was intermittent over 24 hours. It could even be when he was laying down and turning his head. Due to his history however he come to the hospital for further work-up. Of note he did lose his insurance and and recently be switched from Eliquis to Coumadin, INR was 2.3. Neurology has been consulted and was recommended he have an MRI and stroke work-up. MRI did demonstrate previous infarct but no acute findings. Echo unremarkable. CTA showed moderate basilar artery stenosis but with no significant change from the studies. Discussed his elevated blood pressure with him and he discussed it is chronically elevated despite adherence to his home medications. He is willing to start another blood pressure medication and follow-up closely with his primary care physician, discussed leaving today versus tomorrow pending blood pressure and patient reports he is completely asymptomatic and would like to leave today. Also discussed switching back to Eliquis now that his Medicaid is in effect and he reports he already picked this up. INR in 2 to 3 days with PCP and once it is less than 2 can resume the Eliquis. Given need for lab work and adjustments advised to call PCP in the morning. Also provided prescription for vestibular rehab should symptoms return. Physical Exam Const alert and no apparent distress Constitutional Narrative: Oriented HEENT normocephalic and head/scalp atraumatic Eyes Eyes Narrative: EOM grossly intact, anicteric Neck supple Resp normal respiratory effort and clear to auscultation bilaterally Cardio regular rate and regular rhythm GI soft to palpation, non-tender and non-distended Extremity Extremity Narrative: No edema appreciated Neuro moves all extremities Neuro Narrative: No overt focal deficits appreciated Psych Psych Narrative: Cooperative Weight / BMI Weight Weight: 110.3 kg Body Mass Index (BMI) 38.0 ABG / Lab / Microbiology Data Result Diagrams: 02/28/22 18:00 02/28/22 18:00 Laboratory: Laboratory Results - last 24 hr 02/28/22 18:00: WBC 6.9, RBC 4.73, Hgb 14.1, Hct 42.7, MCV 90.3, MCH 29.8, MCHC 33.0, RDW Std Deviation 40.3, RDW Coeff of Valentina 12.1, Plt Count 262, MPV 10.3, Immature Gran % (Auto) 0.400, Neut % (Auto) 59.5, Lymph % (Auto) 27.1, [place] % (Auto) 8.1, Eos % (Auto) 4.2, Baso % (Auto) 0.7, Absolute Neuts (auto) 4.1, Absolute Lymphs (auto) 1.87, Nucleated RBC % 0 02/28/22 18:00: PT 24.8 H, INR 2.3, APTT 35.5 02/28/22 18:00: Sodium 138, Potassium 4.1, Chloride 104, Carbon Dioxide 28.0, Anion Gap 6, BUN 20 H, Creatinine 1.17, Estim Creat Clear Calc 63.56, Est GFR (MDRD) Af Amer 82, Est GFR (MDRD) Non-Af 68, BUN/Creatinine Ratio 17.1, Glucose 164 H, Calcium 9.0, Troponin I High Sens 14 02/28/22 18:17: POC Glucose 156 H 03/01/22 04:49: Triglycerides 158, Cholesterol 122, LDL Cholesterol 34, VLDL Cholesterol 32, HDL Cholesterol 56 Radiography Diagnostic Testing: Radiology Impression Brain CT 02/28/22 18:07 IMPRESSION: No acute findings. Chronic occipital infarcts. N.B. : The above Results were Read Back by Ambar Henry MD to Angel Urena MD, and understanding confirmed on 02/28/2022 18:39:35 (ET). Electronically Signed: Ambar Henry MD at 18:41 EDT Reading Location ID and State: [id number] / Tel , Service support , ADDENDUM: 02/28/22 1848 IMPRESSION: No acute findings. Chronic occipital infarcts. N.B. : The above Results were Read Back by Ambar Henry MD to Angel Urena MD, and understanding confirmed on 02/28/2022 18:39:35 (ET). Electronically Signed: Ambar Henry MD at 18:41 EDT Reading Location ID and State: [id number] / Tel , Service support , Chest X-Ray 02/28/22 18:10 IMPRESSION: Normal x-ray examination of the chest. Electronically Signed: Ambar Henry MD at 18:29 EDT Reading Location ID and State: Do / Tel , Service support , Head/Neck CTA 02/28/22 20:21 IMPRESSION: No acute findings. Moderate basilar artery stenosis, no significant change. Electronically Signed: Ambar Henry MD at 21:15 EDT Reading Location ID and State: Do / Tel , Service support , ADDENDUM: 02/28/22 2154 IMPRESSION: No acute findings. Moderate basilar artery stenosis, no significant change. N.B. : The above Results were Read Back by Ambar Henry MD to Dr. Angel Urena MD, and understanding confirmed on 02/28/2022 21:47:28 (ET). Electronically Signed: Ambar Henry MD at 21:15 EDT Reading Location ID and State: Do / Tel , Service support , Echocardiogram 03/01/22 08:52 Interpretation Summary Left ventricular systolic function is normal. The estimated ejection fraction is 55 %. Apical false tendon noted. Mild (1+) mitral valve insufficiency. Mild tricuspid valve insufficiency. Mild focal aortic valve calcification. Trivial aortic valve insufficiency. Mild (1+) pulmonic valve insufficiency. Right ventricular systolic pressure estimated to be 25 mmHg. No evidence for diastolic dysfunction. Bubble contrast study negative for right to left interatrial shunt. Ordering Physician: Kristel Mccartney Referring Physician: MOLLY BRIDGES Performed By: Kamille Hopkins RDCS Brain MRI 03/01/22 10:00 IMPRESSION: Involutional changes of the brain, as described above. No acute infarct. Electronically Signed: Kenyn Cisneros MD at 12:42 EDT , D/C Instructions Discharge Diet: 2000 mg Sodium Diet Meaningful Use Info Meaningful Use Diagnoses (Choose all that apply): None applicable Discharge Plan Admission Admit Date/Time: 02/28/22 22:35 Primary Reason for Your Visit: Dizziness Attending Provider: Kristel Mccartney Primary Care Provider: Molly Bridges Consulting Providers: Rafita Fritz Instructions Patient Instructions: ED Hypertension, Established, ED Vertigo, Unspecified Additional Instructions / Restrictions: *Please take this with you to your next doctors appointment* -Your INR on the day of discharge was 2.3 -Given your new insurance you qualify to go back on Eliquis, you reported you picked up a script and have this available at home -Please discontinue your coumadin and you will need your INR checked in 2 days, once it is below 2.0 you will need to begin your eliquis. Given the need for blood work and timing, please call your primary care physician in the morning to coordinate lab work and follow up. The lab work will need ordered by your primary physician -Your blood pressure has been consistently high despite being on an chai inhibitor and beta adrian. You will be discharged on amlodipine 10 mg, an additional blood pressure medication. It is important that you take all three of these. -Please take your blood pressure daily. If your blood pressure is consistently higher than 160/90 for >2 days, please call your primary care physician's office. -Call 911 if you have any of these: --Blood pressure of 180/120 or higher and any other symptoms linked to organ damage. ---These include: ---Unusual chest pain or shortness of breath ---Weakness of an arm or leg or one side of the face ---Problems speaking or seeing ---Severe headache ---Sudden severe pain in your belly (abdomen) or back ---Extreme drowsiness, confusion, or fainting ---Passing out or seizures ---Severe dizziness or spinning feeling (vertigo) that doesn't go away -Please call your primary care provider's office upon discharge to schedule a hospital follow up within 1 week. -Your dizziness may be due to an inner ear problem. If your symptoms return, please follow with [facility] Re[facility]. A script will be provided for your on discharge. -For any concerning signs or symptoms please call 911 or proceed to the nearest emergency department Discharge Orders/Prescriptions Prescriptions: New Eliquis 5 mg tablet 5 mg PO BID 30 Days Qty: 60 0RF Rx Instructions: Pt already has supply amlodipine 10 mg tablet 10 mg PO DAILY Qty: 30 0RF Continued metformin 1,000 mg tablet 1,000 mg PO DAILY pioglitazone 30 mg tablet 30 mg PO DAILY olmesartan 40 mg tablet 40 mg PO DAILY metoprolol succinate 100 mg tablet extended release 24 hr 50 mg PO DAILY duloxetine 60 mg capsule,delayed release(DR/EC) 60 mg PO BID montelukast 10 MG tablet 10 mg PO QHS atorvastatin 80 MG tablet 40 mg PO QHS aspirin 81 mg Tablet,Chewable 81 mg PO DAILY@0800 Qty: 30 0RF Discontinued warfarin 6 mg Tablet 6 mg PO DAILY Referrals / Follow Up: Molly Bridges [Primary Care Provider] - Within 1 Week Disposition Disposition (needs filled in before D/C Order can be placed): Home, Self Care Charges/Coding Visit Charges OBSV E&M: 41612 Observation care discharge
== END 2022-03-01 15:57 | disposition home or self-care (01) ==
LOC: ED 21:58 → PCU 22:59
PROVIDERS: Admitting Provider Family Medicine; Emergency Provider Emergency Medicine; Visit Provider Internal Medicine
DX: R42 Dizziness and giddiness (principal); I48.0 Paroxysmal atrial fibrillation; E11.9 Type 2 diabetes mellitus without complications; Z79.82 Long term (current) use of aspirin; I10 Essential (primary) hypertension; G47.33 Obstructive sleep apnea (adult) (pediatric); K21.9 Gastro-esophageal reflux disease without esophagitis; H54.7 Unspecified visual loss; Z86.73 Personal history of transient ischemic attack (TIA), and cerebral infarction without residual deficits; E78.00 Pure hypercholesterolemia, unspecified; Z79.899 Other long term (current) drug therapy; Z79.84 Long term (current) use of oral hypoglycemic drugs; Z79.01 Long term (current) use of anticoagulants; I08.3 Combined rheumatic disorders of mitral, aortic and tricuspid valves; R94.31 Abnormal electrocardiogram [ECG] [EKG]
CPT/HCPCS: 36415; 70450; 70496; 70498; 70551; 71045; 80048; 80061; 82962; 84484; 85025; 85610; 85730; 93005; 93306; 94762; 96374; 96375; 99218; 99285; Q9967; A4216; G0378

== ENCOUNTER → 2022-04-11 | Outpatient (CLI) | payer MEDICAID, SELFPAY ==
--- NOTE | 2022-04-11 08:00 | CT_ITS ---
PROCEDURE: CT RIGHT KNEE WITHOUT CONTRAST REASON FOR EXAM: Male, 61 years old. Preoperative planning for the [employer] Robotic knee surgery. Knee pain. TECHNIQUE: Transaxial CT of the hip, knee and ankle were obtained. Coronal and sagittal reconstruction images of the knee were provided. Individualized dose optimization techniques were used for this CT. COMPARISON: None. FINDINGS: Standard protocol for the preoperative planning for the [employer] robotic knee surgery was performed. There is mild arthrosis of the hip and moderate arthrosis of the knee. Mild arthrosis of the tibiotalar and subtalar joints.. CT/Extremity Lower without Contra IMPRESSION: Preoperative [employer] Rob[employer] knee surgical CT evaluation with findings as described above. Electronically Signed: Ranjit Steele, at 14:37 EST ,
== END | disposition home or self-care (01) ==
LOC: CT 07:58
PROVIDERS: Visit Provider Student in an Organized Health Care Education/Training Program
DX: M25.561 Pain in right knee (principal); M17.31 Unilateral post-traumatic osteoarthritis, right knee; M21.161 Varus deformity, not elsewhere classified, right knee
CPT/HCPCS: 73700

== ENCOUNTER 2022-04-17 12:31 | Emergency (ER) | payer MEDICAID, SELFPAY ==
[2022-04-17 12:32] VITALS: BP 139/104; PULSE 93; RESP 18; TEMP 35.9; O2SAT 98; BMI 37.5
--- NOTE | 2022-04-17 12:48 | EX.ED.DYSGE1 ---
HPI History of Present Illness Chief Complaint: Headache Informant: patient and spouse/S.O. Narrative Narrative: He 11-year-old male presenting to the emergency room with a chief complaint of headache. The patient notes that he has been under a lot of stress lately. His blood pressure has been elevated but he is also out of his amlodipine. He states that he gets migraines about twice a year that required him to come to the hospital. He does not take any daily preventative medicine or any abortive therapy. He has never seen a neurologist. He denies fever or any neurologic symptoms. He describes the headache as throbbing and retro-orbital on both sides of his head. He notes nausea but no vomiting PFSH PENDING SALE TO [facility] Medical History Afib Asthma Asthma Asthma Atrial fibrillation Blurry vision Cardiology follow-up encounter Chronic GERD CPAP (continuous positive airway pressure) dependence CVA (cerebral vascular accident) Depression Diabetes Diabetes Dizziness Essential hypertension GERD (gastroesophageal reflux disease) High cholesterol History of echocardiogram History of hiatal hernia History of stroke HTN (hypertension) Hyperlipidemia Hypertension Migraine headache Non-rheumatic tricuspid valve insufficiency Non-smoker Nonrheumatic mitral valve insufficiency ANI (obstructive sleep apnea) Paroxysmal atrial fibrillation Pure hypercholesterolemia Sleep apnea Stroke determined by clinical assessment Stroke/cerebrovascular accident Type 2 diabetes mellitus Type 2 diabetes mellitus Wears glasses Home Medications montelukast 10 mg tablet 10 mg PO QHS allergies 12/04/14 [History Last Taken 04/08/18] atorvastatin 80 mg tablet 40 mg PO QHS cholesterol 10/22/16 [History Last Taken 04/08/18] aspirin 81 mg chewable tablet 81 mg PO DAILY@0800 #30 tabs 02/20/21 [Rx Last Taken Unknown] metformin 1,000 mg tablet 1,000 mg PO BID 09/20/21 [History Last Taken Unknown] metoprolol succinate 100 mg tablet,extended release 24 hr 100 mg PO DAILY 09/20/21 [History Last Taken Unknown] olmesartan 40 mg tablet 40 mg PO DAILY 09/20/21 [History Last Taken Unknown] pioglitazone 30 mg tablet 30 mg PO DAILY 09/20/21 [History Last Taken Unknown] amlodipine 10 mg tablet 10 mg PO DAILY #30 tabs 03/01/22 [Rx Last Taken Unknown] apixaban 5 mg tablet (Eliquis) 5 mg PO BID 30 days #60 tabs 03/01/22 [Rx Last Taken Unknown] bupropion HCl 100 mg tablet 100 mg PO DAILY 04/12/22 [History Last Taken Unknown] trazodone 100 mg tablet 100 mg PO QHS 04/12/22 [History Last Taken Unknown] amlodipine 5 mg tablet 5 mg PO DAILY #30 tabs 04/17/22 [Rx Last Taken Unknown] Allergy/AdvReac Type Severity Reaction Status Date / Time No Known Allergies Allergy Verified 04/17/22 12:32 Family History Mother Heart disease Father Heart disease Diabetes Surgical History History of arthroscopic knee surgery Social History housing: apartment current occupational status: unemployed Smoking Status: Never smoker alcohol intake: current alcohol intake frequency: holidays/special occasions only substance use type: does not use caffeine: No what type of physical activity do you participate in: none ROS ROS ED Constitutional Constitutional ED: Denies chills, fever(s) or weight loss Eyes Eyes: Denies change in vision or diplopia ENT ENT ED: Denies ear pain, rhinorrhea or sore throat Cardiovascular Cardiovascular: Denies chest pain, orthopnea, palpitations or racing heartbeat Respiratory/Chest Respiratory/Chest: Denies cough, dyspnea or orthopnea Gastrointestinal Gastrointestinal: Reports nausea; Denies abdominal pain, diarrhea or vomiting Genitourinary Genitourinary ED: Denies dysuria, hematuria or urinary frequency Musculoskeletal Musculoskeletal: Denies arthralgias or myalgias Integumentary Denies abscess or rash Neurologic Neurologic: Reports headache(s); Denies weakness Psychiatric Psychiatric: Denies anxiety, depression, suicidal ideation or suicidal thoughts Endocrine Endocrinology: Denies polydipsia, polyphagia or polyuria Allergic/Immunologic Allergic/Immunologic ED: Denies mouth swelling, tongue swelling or urticaria EXAM Physical Exam Const Vital Signs: 04/17/22 12:32 Temperature 96.6 F L Temperature Source Temporal Pulse Rate 93 Respiratory Rate 18 Blood Pressure 139/104 H Blood Pressure Mean 115 Pulse Ox 98 Oxygen Delivery Method Room Air Positive well nourished and well developed General Appearance ED: well developed HEENT Reports normocephalic, head/scalp atraumatic and moist mucous membranes Eyes PERRL and EOMs intact bilaterally Neck no lymphadenopathy, supple and no JVD Resp normal respiratory effort and clear to auscultation bilaterally Cardio regular rate, regular rhythm and no murmurs GI normal to inspection, nondistended, normoactive bowel sounds and non-tender Palpation: soft Back/Spine no CVA tenderness and normal ROM Extremity normal to inspection General Extremety ED: Negative for edema General Extremity: Negative for edema Neuro oriented x3 and CN's II-XII intact bilaterally Sensorium / Orientation: alert Motor Exam: strength 5/5 throughout Psych mental status grossly normal Mood & Affect: Negative for depressed or tearful Skin no rashes or lesions noted and no wounds MDM MDM MDM Narrative Medical decision making narrative: Nursing reported to me that the patient was a very difficult stick and numerous operators tried. Eventually IV was established and the patient received IV fluids Toradol Benadryl and Compazine. I am going to write for him to have some amlodipine as he is out. He will need to follow-up with primary care. He needs to talk about migraine medication. Discharge Plan Triage Chief Complaint: Headache ED Provider: Sage Saucedo Dx/Rx/DC Orders Clinical Impression: Migraine, Hypertension, Medication refill Instructions: ED, Migraine (Classical) Prescriptions: New amlodipine 5 mg tablet 5 mg PO DAILY Qty: 30 0RF No Action metformin 1,000 mg tablet 1,000 mg PO BID pioglitazone 30 mg tablet 30 mg PO DAILY olmesartan 40 mg tablet 40 mg PO DAILY metoprolol succinate 100 mg tablet extended release 24 hr 100 mg PO DAILY montelukast 10 MG tablet 10 mg PO QHS atorvastatin 80 MG tablet 40 mg PO QHS aspirin 81 mg Tablet,Chewable 81 mg PO DAILY@0800 Qty: 30 0RF Eliquis 5 mg tablet 5 mg PO BID 30 Days Qty: 60 0RF Rx Instructions: Pt already has supply amlodipine 10 mg tablet 10 mg PO DAILY Qty: 30 0RF bupropion HCl 100 mg Tablet 100 mg PO DAILY trazodone 100 mg Tablet 100 mg PO QHS Primary Care Provider: Molly Bridges Referrals: Molly Bridges [Primary Care Provider] - As soon as possible Disposition Disposition: Home, Self Care
[2022-04-17] MEDS: proCHLORPERazine 10 MG/2 ML Vial IV (14:01)
[2022-04-17] MEDS: Ketorolac 30 MG/ML Syringe IV (14:01)
[2022-04-17] MEDS: DiphenhydrAMINE 50 MG/ML Syringe 25 MG IV (14:01)
[2022-04-17] MEDS: 0.9% Normal Saline 1,000 ML 999 ML IV (14:01)
== END 2022-04-17 15:23 | disposition home or self-care (01) ==
PROVIDERS: Emergency Provider Emergency Medicine; Visit Provider Emergency Medicine
DX: G43.909 Migraine, unspecified, not intractable, without status migrainosus (principal); E11.9 Type 2 diabetes mellitus without complications; I10 Essential (primary) hypertension; E78.5 Hyperlipidemia, unspecified; Z76.0 Encounter for issue of repeat prescription
CPT/HCPCS: 96361; 96374; 96375; 99283; J7030; A4216

== ENCOUNTER 2022-04-21 10:18 | Observation (INO) | payer MEDICAID, SELFPAY ==
--- NOTE | 2022-04-14 09:12 | RAD_ITS ---
STUDY: X-RAY CHEST REASON FOR EXAM: Male, 61 years old. Preoperative evaluation. TECHNIQUE: Frontal and lateral views of the chest. COMPARISON: February 28, 2022. FINDINGS: The lungs are clear and expanded. There is no demonstrated pleural abnormality. Stable mild cardiomegaly. Normal mediastinum and evaritso. Normal visualized pulmonary arteries. Heparin tortuosity unchanged. Mild stable thoracic spondylosis. Normal visualized ribs, clavicles, and shoulders. There is no demonstrated abnormality of the visualized soft tissue structures of the upper abdomen. RAD/Chest PA and Lateral IMPRESSION: Stable chest with no acute or active cardiopulmonary disease. Electronically Signed: Ranjit Steele, at 11:13 EST ,
[2022-04-14 10:42] LABS: Absolute Lymphocyte Count 2.23 X10^3/uL (0.83-4.51); Basophil# 0.06 X10^3/uL; Basophil% 0.9 % (0-1); Eosinophil# 0.42 X10^3/uL; Eosinophils% 6.6 % (0-5); Hematocrit 41.8 % (40-54); Hemoglobin 13.5 g/dL (13.0-16.5); Lymphocyte # 2.23 X10^3/ul (0.83-4.51); Lymphocyte % 34.9 % (19-41); Mean Corp Hgb Conc 32.3 g/dL (32-36); Mean Corpuscular Hgb 29.8 pg (27.0-32.0); Mean Corpuscular Volume 92.3 fL (80-94); Mean Platelet Vol. 10.7 fl (6.2-12.0); Monocyte# 0.61 X10^3/uL; Monocyte% 9.5 % (0-10); NRBC Flagged by Analyzer 0 % (0-5); Neutrophil # 3.03 X10^3/uL (2.7-7.7); Neutrophil % 47.5 % (47-70); Platelet Count 264 K/mm3 (150-450); RBC Distribution Width CV 12.3 % (11.6-14.6); RBC Distribution Width SD 41.3 fl (35.1-43.9); Red Blood Count 4.53 M/mm3 (4.6-6.2); White Blood Count 6.4 K/mm3 (4.4-11.0)
[2022-04-14 10:56] LABS: Hemoglobin A1c 6.8 % (3.8-5.6)
[2022-04-14 11:24] LABS: Albumin, Serum 3.5 g/dL (3.2-5.0); Anion Gap 9 (5-15); BUN 21 mg/dL (7-18); BUN/Creat Ratio 19.3 RATIO (10-20); Calcium,Total 8.2 mg/dL (8.5-10.1); Chloride 106 mmol/L (98-107); Creatinine, Serum 1.09 mg/dL (0.70-1.30); EST Glomerular Filtration Rate 73 mL/min (>60); Est Glom Filt Rate - Afr Amer 89 mL/min (>60); Glucose 154 mg/dL (74-106); Magnesium 1.8 mg/dL (1.6-2.6); Potassium 4.3 mmol/L (3.5-5.1); Sodium Level 139 mmol/L (136-145)
--- NOTE | 2022-04-19 15:15 | CASEMGMT ---
TC to pt for RN CM assessment prior to surgery, received unidentified voicemail.
[2022-04-21] VITALS (18 sets, daily range): BP systolic 124–154; BP diastolic 80–96; PULSE 69–95; RESP 14–18; TEMP 35.8–37.1; O2SAT 92–100; BMI 38.9
--- NOTE | 2022-04-21 | KNEE_PTH ---
PATIENT: MONICA AHMADI LOC: MS3 U#:[id number] AGE/SX: 61/M ROOM: [facility] [place] RE04/21/[address]: Dr. José Antonio Lewis DO : 1960 BED: 1 DIS: 04/22/2022 SPEC #: [id number] RECD: 04/21/22 13:13 STATUS: BROOKLYNN MANN #: [id number] JADA: 04/21/22 00:[address]: José Antonio Leiws DEPT: SURGICAL PATHOLOGY RECD BY: Rohan Sommers ENTERED: 04/21/22 13:13 SP TYPE: TOTAL KNEE OTHR DR: Dr. José Antonio Wilson MD [facility] Tissues: Knee, NOS Procedures: Decalcification bone/plaque Surgery Specimen Level IV HEADER OPERATION: ERAS, total knee replacement robotic arm assist PRE-OP DIAGNOSIS: Posttraumatic osteoarthritis right knee; varus deformity right knee TISSUE SUBMITTED: Bone and soft tissue right knee MICROSCOPIC DIAGNOSIS Bone and tissue of right knee, total knee resection: Consistent with severe degenerative joint disease. AM:indy 04/25/2022 MICROSCOPIC DESCRIPTION Slides are reviewed. GROSS DESCRIPTION Received is one container designated bone and soft tissue right knee. The specimen consists of multiple fragments of barreto-yellow bone measuring in aggregate 11 x 9 x 3 cm. No soft tissue is identified. A number of bony fragments contain articular surfaces consistent with tibial plateau and femoral condyle and displaying prominent osteophyte formation, eburnation, and bone erosion. Thai Masseur sections are submitted in one cassette after decalcification. / SJ:indy 04/21/2022 TC:5 CPT: 33358, 62267
[2022-04-21] MEDS: Lactated Ringers 1,000 ML 15 ML IV (06:38)
[2022-04-21] MEDS: Magnesium 2 GM for ERAS IV (06:39)
[2022-04-21] MEDS: Celecoxib 200 MG Capsule 400 MG PO (06:40)
[2022-04-21] MEDS: Acetaminophen 500 MG Tablet 1000 MG PO ×3 (06:40→23:16)
[2022-04-21] MEDS: Gabapentin 600 MG Tablet PO (06:40)
[2022-04-21 06:50] LABS: Bedside Glucose 407 mg/dL (74-106)
[2022-04-21] MEDS: Insulin Lispro 100 UNIT/ML INSULN.PEN SC ×2 (06:56→10:42)
[2022-04-21 07:08] LABS: Hematocrit 38.7 % (40-54); Hemoglobin 12.8 g/dL (13.0-16.5); Mean Corp Hgb Conc 33.1 g/dL (32-36); Mean Corpuscular Hgb 29.6 pg (27.0-32.0); Mean Corpuscular Volume 89.6 fL (80-94); Mean Platelet Vol. 10.4 fl (6.2-12.0); Platelet Count 241 K/mm3 (150-450); RBC Distribution Width CV 12.6 % (11.6-14.6); Red Blood Count 4.32 M/mm3 (4.6-6.2)
[2022-04-21] MEDS: Cefazolin 2 GM in 0.9% Normal Saline 100 ML IV (07:30)
[2022-04-21] MEDS: TXA 1000mg in NS100 100ml (IVPB at Incision) 660 MG IV (07:35)
[2022-04-21 07:40] LABS: Bedside Glucose 342 mg/dL (74-106)
[2022-04-21] MEDS: dexAMETHasone 10 MG/ML Vial IV (07:40)
[2022-04-21] MEDS: TXA 1000mg in NS100 100ml (IVPB at Closure) 660 MG IV (09:26)
--- NOTE | 2022-04-21 10:18 | PCM.OPRPT ---
Report of Operation Date of Procedure: 04/21/22 Description of Surgical Findings:: Preoperative diagnosis: Right knee primary osteoarthritis Postoperative diagnosis: Right knee primary osteoarthritis Procedure: Cemented right total knee arthroplasty Surgeon: José Antonio Lewis DO Miller Apprentice: ANTONELLA Martinez Anesthesia: Spinal with sedation, adductor canal block Anesthesiologist: Dr. Sorensen Complications: None apparent Drains: None Estimated blood loss: 100 cc Urinary output: None recorded IV fluids: 1100 cc crystalloid Specimens: Total knee resections Surgical implants: [place] triathlon X3 asymmetric patella size a 35 x 10 mm thickness, triathlon cruciate retaining femoral #5, primary tibial baseplate #5, triathlon X3 tibial bearing insert CS 11 mm thickness Indications: This is a 61-year-old male seen in the outpatient setting diagnosed with right knee osteoarthritis with significant varus deformity. He failed nonoperative management with intra-articular corticosteroid injections, activity modification, bracing, hcpi-rgm-admmyht analgesics. X-rays revealed grade 4 medial compartment changes. He also had significant patellofemoral arthritis. I recommended a right total knee arthroplasty. The risks, benefits, alternatives to procedure reviewed with patient at length and he agreed to proceed. Risks included but were not limited to bleeding, infection, loss of life or limb, need for additional surgery, persistent pain, intraoperative or postoperative fracture, instability, loosening of components, wound complications, stiffness, neurovascular injury, DVT or PE. Patient expressed understanding these risks and wished to proceed with surgery. Informed consent was obtained in the outpatient setting. Description of procedure: Patient was identified in the preoperative holding area by name, medical record number, and date of . Informed set was confirmed with the patient. The operative knee was marked with a surgical marker. At time of his procedure, patient brought to the operative suite and positioned supine a standard operating table. Anesthesia then administered a spinal anesthetic. He was then repositioned in the supine position with all bony prominences well-padded. We then placed a well-padded pneumatic tourniquet on the right upper thigh. The right upper extremity was brought across patient's chest throughout the procedure. We then prepped and draped the right lower extremity in a normal, sterile orthopedic fashion. We performed a timeout with all parties in attendance in agreement with the side, site, operation be performed. No concerns were voiced and would like to proceed with surgery. 2 g Ancef was administered prior to the incision by anesthesia staff as well as 1 g IV TXA. First I exsanguinated the operative lower extremity with a Esmarch bandage. Tourniquet was inflated to 250 mmHg where remained up for approximately 80 minutes. Esmarch was removed. I planned a standard midline approach to the right knee approximately 15 cm in length. Skin was sharply incised with a 10 blade scalpel developing full-thickness layers down to the retinaculum. Layers were developed identifying the VMO. I then planned a standard medial parapatellar arthrotomy performed in flexion. The anterior horn of the medial meniscus was released. Hoffa's fat pad was then released. I then everted the patella in extension and brought the knee into 90 degrees of flexion. The anterior horn of the lateral meniscus was then released. The ACL was split in its mid substance with a 10 blade. We then brought the knee back into extension. I measured the outer diameter of the patella and selected an appropriately sized patellar. I measured the thickness of the patella to be 25 mm. I then reamed the patella to a depth of approximately 14 mm. A protective baseplate was then placed on the patella. I then placed 2 bicortical pins in the metaphyseal distal femur medial to lateral for the Robert arrays. In similar fashion, I made 2 stab incisions approximately a handsbreadth distal to the tibial tubercle along the medial aspect of the tibia, drilling 2 bicortical pins for the tibial array. The knee was brought into flexion. The patella was subluxed laterally but not everted. Medial lateral retractors were placed. We then utilized the PromptCare software to confirm our planned surgical procedure and oriented with the patient's osseous anatomy. All checks with the PromptCare system were confirmed. Patient had a relatively flexible varus deformity after performing stress examination utilizing the PromptCare software. We elected to place the tibial baseplate in approximately 1 degrees of varus to allow for appropriate balancing. Sawblade was then brought in. I first started with the tibial cut, ensuring protection of the MCL and patellar tendon. A tibial wafer was then excised. I then proceeded to make the posterior femoral, anterior, anterior chamfer cuts with the same blade. Ligaments were protected with Intermedics retractors. Sawblade was then exchanged to perform the distal femoral and posterior chamfer cuts. The robot was then removed from the surgical field. Remaining loose bone and menisci were excised carefully. Posterior osteophytes were removed from the distal femur with a curved osteotome and rongeur. I attempted to place trial components but was unsuccessful due to tightness both in flexion and extension. I brought the robot back into the field to resect an additional 1 mm of proximal tibia. Excess bone was removed. Trial components were then placed. Balance was excellent in both extension and 90 degrees flexion. No mid flexion instability was apparent. I then drilled for a size 35 patella. Patella was trialed. Tracking was excellent. We then marked for tibial baseplate. Distal femoral pegs were drilled. Tibial keel was punched. Trials were removed. Periarticular block was administered. The wound was copiously irrigated with normal saline solution. Simplex cement was then mixed on the back table. Components were then cemented in place with excess cement being removed. Cement was allowed to cure with the components in full extension utilizing a 11 mm trial polyethylene component. While the cement was curing, Betadine solution was allowed to bathe the wound and the wound edges for 3 mins. After cement had cured fully, trial polyethylene was removed. Tourniquet was deflated. Hemostasis was excellent. An additional 1 g TXA was administered IV. I selected a size 11 mm polyethylene which was placed and impacted per painting department supervisor recommendations. Final components appeared very well balanced with excellent range of motion. The wound was copiously irrigated with normal saline solution. Capsule was closed watertight with #1 strata fix barbed suture. Deeper report muscle layer was reapproximated with 0 Vicryl suture. Dermis was reapproximated buried interrupted 2-0 Vicryl suture. Skin was finally reapproximated yanelis. Patient tolerated the procedure well without apparent complication. He was safely awakened in the operative suite, transferred to his hospital bed and subsequently to PACU in stable condition. Post Operative Plan: Patient will be placed in observation overnight due to medical comorbidities. Weightbearing: Range of motion and weightbearing as tolerated right lower extremity. Antibiotics: Ancef 1 g every 8 hours x 3 doses DVT Prophylaxis: Restart home Eliquis and aspirin postoperative day #1 Juares: None Dressing: Maintain silver dressing x7 days X-Rays: 2-week x-rays in the office. Follow-up: 2 weeks in my office for staple removal
[2022-04-21 11:00] LABS: Bedside Glucose 233 mg/dL (74-106)
[2022-04-21] MEDS: oxyCODONE 5 MG Tablet PO ×2 (14:39→23:17)
--- NOTE | 2022-04-21 16:09 | PN.HOSP_ITS ---
Subjective Subjective 61-year-old male status post right total knee Objective Data Objective Data Vital Signs: Vital Signs Temp Pulse Resp BP Pulse Ox O2 Del Method O2 Flow Rate 98.8 F 74 18 134/80 H 98 Room Air 2 04/21/22 15:24 04/21/22 15:24 04/21/22 15:24 04/21/22 15:24 04/21/22 15:24 04/21/22 15:24 04/21/22 15:32 Oxygen Flow Rate (L/min) 2 Oxygen Delivery Method Room Air Weight: 249 lb 1.957 oz Body Mass Index (BMI) 38.9 Intake & Output: Intake and Output for Last 24 Hours 04/20/22 04/21/22 04/22/22 03:59 03:59 03:59 Intake Total 2434 / 2434 Output Total 0 / 0 Balance 2434 / 2434 Lab / Micro Data Result Diagrams: 04/21/22 07:00 04/14/22 09:32 Labs: Laboratory Results - last 24 hr 04/21/22 06:27: POC Glucose 407 H 04/21/22 07:00: WBC 6.0, RBC 4.32 L, Hgb 12.8 L, Hct 38.7 L, MCV 89.6, MCH 29.6, MCHC 33.1, RDW Std Deviation 41.0, RDW Coeff of Valentina 12.6, Plt Count 241, MPV 1 0.4 04/21/22 07:18: POC Glucose 342 H 04/21/22 10:18: POC Glucose 233 H Micro: Microbiology 04/14/22 09:32 Nasal Secretion Nasal Screen MRSA/MSSA - Final Physical Exam Narrative General: Alert, Oriented x3, Cooperative, No apparent distress HEENT: Atraumatic, PERRLA, EOMI, Normocephalic Oral: Moist Mucosa Neck: Supple, No JVD Lungs: Clear to auscultation, Normal air movement, No rhonchi, No wheeze, No rales Cardiovascular: Regular rate, Regular Rhythm, Normal S1, Normal S2, No murmurs Abdomen: Soft, Non Tender, Non-Distended, No Hepato-splenomegaly Extremities: No edema, Capillary Refill Less than 3 Seconds Skin: No rashes, No breakdown dressing intact Musculoskeletal: Slight right knee tenderness Neurological: Cranial nerves II-XII grossly intact, Motor Exam 5/5 strength throughout, Sensory exam intact to light touch and pain Psych/Mental Status: Normal Affect, Appropriate Assessment & Plan Assessment/Plan (1) Status post total right knee replacement: PLAN: Plan 1. Status post right total knee replacement for osteoarthritis ? Pain management per primary ? PT/OT 2. HTN/HLD/A. fib ? Blood pressures are stable can resume all of his home blood pressure medic patients ? We will monitor renal function with a BMP and a CBC in the morning ? Continue with Eliquis 3. DM2 ? Hold his oral medications ? Start him on a sliding scale insulin with Accu-Cheks ? We will monitor make adjustments 4. Anxiety/depression ? Stable ? Continue with his home medications DVT: Eliquis Charges/Coding Visit Charges OBSV E&M: 61323 Subsequent observation care L2
[2022-04-21] MEDS: Cefazolin 1 GM/50 ML BAG IV ×2 (16:48→23:15)
[2022-04-21] MEDS: 0.9% NaCl Peripheral Flush Adult/Peds IV (23:16)
[2022-04-21] MEDS: traZODone 100 MG Tablet PO (23:17)
[2022-04-21] MEDS: Montelukast 10 MG Tablet PO (23:17)
[2022-04-21] MEDS: Atorvastatin Calcium 40 MG Tablet PO (23:17)
[2022-04-21] MEDS: Senna/Docusate Sodium 1 Tablet 2 TABLET PO (23:17)
[2022-04-22] VITALS (9 sets, daily range): BP systolic 139; BP diastolic 84–87; PULSE 85–88; RESP 16–20; TEMP 36.6–36.7; O2SAT 77–97
[2022-04-22 05:41] LABS: Hematocrit 34.5 % (40-54); Hemoglobin 11.3 g/dL (13.0-16.5); Mean Corp Hgb Conc 32.8 g/dL (32-36); Mean Corpuscular Hgb 29.7 pg (27.0-32.0); Mean Corpuscular Volume 90.8 fL (80-94); Mean Platelet Vol. 11.2 fl (6.2-12.0); Platelet Count 228 K/mm3 (150-450); RBC Distribution Width CV 12.5 % (11.6-14.6); RBC Distribution Width SD 41.3 fl (35.1-43.9)
[2022-04-22 06:08] LABS: Anion Gap 7 (5-15); BUN 20 mg/dL (7-18); BUN/Creat Ratio 18.2 RATIO (10-20); Calcium,Total 8.6 mg/dL (8.5-10.1); Chloride 103 mmol/L (98-107); EST Glomerular Filtration Rate 73 mL/min (>60); Est Glom Filt Rate - Afr Amer 88 mL/min (>60); Glucose 295 mg/dL (74-106); Potassium 4.3 mmol/L (3.5-5.1); Sodium Level 134 mmol/L (136-145)
[2022-04-22] MEDS: Acetaminophen 500 MG Tablet 1000 MG PO (06:34)
--- NOTE | 2022-04-22 08:07 | PCM.PN.ORT ---
Subjective Subjective Patient seen and examined. Denies any new complaints. Tolerating oral intake without nausea or vomiting. Urinating without difficulty. Denies fevers, chills, nausea or arm, chest pain or shortness of breath. Pain is adequately controlled with current pain regimen. Objective Data Objective Data Vital Signs: Vital Signs Temp Pulse Resp BP Pulse Ox O2 Del Method O2 Flow Rate 97.9 F 88 16 139/84 H 97 Nasal Cannula 25 04/22/22 05:00 04/22/22 05:00 04/22/22 05:00 04/22/22 05:00 04/22/22 07:34 04/22/22 07:34 04/22/22 07:34 Oxygen Flow Rate (L/min) 25 Oxygen Delivery Method Nasal Cannula Weight: 249 lb 1.957 oz Body Mass Index (BMI) 38.9 Intake & Output: Intake and Output for Last 24 Hours 04/20/22 04/21/22 04/22/22 23:59 23:59 23:59 Intake Total 4534 / 4534 271.25 / 271.25 Output Total 500 / 600 550 / 550 Balance 4034 / 3934 -278.75 / -278.75 Lab / Micro Data Result Diagrams: 04/22/22 04:42 04/22/22 04:42 Labs: Laboratory Results - last 24 hr 04/21/22 10:18: POC Glucose 233 H 04/22/22 04:42: WBC 12.0 H, RBC 3.80 L, Hgb 11.3 L, Hct 34.5 L, MCV 90.8, MCH 29.7, MCHC 32.8, RDW Std Deviation 41.3, RDW Coeff of Valentina 12.5, Plt Count 228, MPV 11.2 04/22/22 04:42: Sodium 134 L, Potassium 4.3, Chloride 103, Carbon Dioxide 24.0, Anion Gap 7, BUN 20 H, Creatinine 1.10, Estim Creat Clear Calc 67.60, Est GFR (MDRD) Af Amer 88, Est GFR (MDRD) Non-Af 73, BUN/Creatinine Ratio 18.2, Glucose 295 H, Calcium 8.6 Micro: Microbiology 04/14/22 09:32 Nasal Secretion Nasal Screen MRSA/MSSA - Final Physical Exam Narrative General - A&Ox3, NAD. VSS/AF Right lower extremity -incisional dressing C/D/I. SILT Sural, Saphenous, SPN, DPN, Tibial N. distributions. DP, PT 2+. BCR. DF, PF, EHL /. No calf TTP. Assessment & Plan Assessment/Plan (1) Status post total right knee replacement: PLAN: POD#1 s/p right robotic assisted total knee arthroplasty - Pain control - Medicine following for medical management - PT/OT-weightbearing as tolerated, range of motion as tolerated right lower extremity - DVT PPX -restart home Eliquis, aspirin, SCDs, KVNG hose, early mobilization - Case management - D/C planning Anticipate discharge to home if if cleared from a medical perspective and therapy goals are met today.
[2022-04-22] MEDS: oxyCODONE 5 MG Tablet PO ×2 (08:51→12:47)
[2022-04-22] MEDS: APIXABAN 5 MG TABLET PO (08:51)
[2022-04-22] MEDS: Aspirin 81 MG TAB.CHEW PO (08:51)
[2022-04-22] MEDS: Famotidine 20 MG Tablet PO (08:52)
[2022-04-22] MEDS: Metoprolol(XL)Succ 100 MG Tablet PO (08:52)
[2022-04-22] MEDS: Losartan Potassium 100 MG Tablet PO (08:52)
[2022-04-22] MEDS: Senna/Docusate Sodium 1 Tablet 2 TABLET PO (08:53)
[2022-04-22] MEDS: buPROPion (XL) 150 MG TABLET.XL PO (08:53)
[2022-04-22] MEDS: amLODIPine 10 MG Tablet PO (08:59)
[2022-04-22] MEDS: FLU VACC QS2022-23(6MOS UP)/PF 60 MCG/0.5 ML SYRINGE IM (10:02)
--- NOTE | 2022-04-22 10:20 | CASEMGMT ---
YESI CHARLES ASSISTANT GOLF PROFESSIONAL CM to room to meet with patient for initial transition planning/care coordination assessment. YESI CHARLES introduced self and role at [facility]. ?Pt voices understanding and consents to assessment at this time. ?Pt sitting up in recliner chair in room in no distress at this time. ?GirlfriendMyriam, asleep in bed next to pt. Pt is A/O at this time and answers all questions appropriately. ? Care providers, pharmacy, and demographics verified/updated at this time. PCP: Molly Bridges Specialists: Dr Lewis Preferred Pharmacy:[facility] Insurance: [employer] Prescription Benefit:Yes Living Will/HPOA: ?Pt does not currently have LW/HCPOA. LNOK: One adult son Living Arrangements: Lives w/girlienMyriam avelar, in apt w/14 steps to enter w/handrails bilat. Pt states has worked w/therapy doing stairs and feels comfortable w/them. Was independent prior to surgery. Girlfriend able to assist. Transportation: Pt, girlfriend DME: Has a CPAP but states has not worn it for about 4-5 years. He states he needs replacement part for it and he just called [facility] about it today. His GF plans to stop at the local branch to discuss what needs done to obtain new parts. Pt has a walker and shower chair. Denies need for other DME. HHC/SNF: No hx of either. ?No needs identified.?Pt plans to do OP therapy @ [facility]. 1st appt is scheduled for 04/25. Pt wishes to return home and states has no concerns with going home at time of discharge. ? PLAN: ?Home w/OP therapy @ [facility]. Kailyn CAIN RN, CM
--- NOTE | 2022-04-22 11:27 | PCM.PN.HOSP ---
Subjective Subjective Doing well, no issues. Objective Data Objective Data Vital Signs: Vital Signs Temp Pulse Resp BP Pulse Ox O2 Del Method O2 Flow Rate 98.0 F 85 20 H 139/87 H 95 Room Air 25 04/22/22 08:43 04/22/22 08:52 04/22/22 08:43 04/22/22 08:43 04/22/22 08:43 04/22/22 08:43 04/22/22 07:34 Oxygen Flow Rate (L/min) 25 Oxygen Delivery Method Room Air Weight: 249 lb 1.957 oz Body Mass Index (BMI) 38.9 Intake & Output: Intake and Output for Last 24 Hours 04/21/22 04/22/22 04/23/22 03:59 03:59 03:59 Intake Total 4805.25 / 4805.25 Output Total 600 / 600 450 / 450 Balance 4205.25 / 4205.25 -450 / -450 Lab / Micro Data Result Diagrams: 04/22/22 04:42 04/22/22 04:42 Labs: Laboratory Results - last 24 hr 04/22/22 04:42: WBC 12.0 H, RBC 3.80 L, Hgb 11.3 L, Hct 34.5 L, MCV 90.8, MCH 29.7, MCHC 32.8, RDW Std Deviation 41.3, RDW Coeff of Valentina 12.5, Plt Count 228, MPV 11.2 04/22/22 04:42: Sodium 134 L, Potassium 4.3, Chloride 103, Carbon Dioxide 24.0, Anion Gap 7, BUN 20 H, Creatinine 1.10, Estim Creat Clear Calc 67.60, Est GFR (MDRD) Af Amer 88, Est GFR (MDRD) Non-Af 73, BUN/Creatinine Ratio 18.2, Glucose 295 H, Calcium 8.6 Micro: Microbiology 04/14/22 09:32 Nasal Secretion Nasal Screen MRSA/MSSA - Final Physical Exam Narrative General: Alert, Oriented x3, Cooperative, No apparent distress HEENT: Atraumatic, PERRLA, EOMI, Normocephalic Oral: Moist Mucosa Neck: Supple, No JVD Lungs: Clear to auscultation, Normal air movement, No rhonchi, No wheeze, No rales Cardiovascular: Regular rate, Regular Rhythm, Normal S1, Normal S2, No murmurs Abdomen: Soft, Non Tender, Non-Distended, No Hepato-splenomegaly Extremities: No edema, Capillary Refill Less than 3 Seconds Skin: No rashes, No breakdown dressing intact Musculoskeletal: Slight right knee tenderness Neurological: Cranial nerves II-XII grossly intact, Motor Exam 5/5 strength throughout, Sensory exam intact to light touch and pain Psych/Mental Status: Normal Affect, Appropriate Assessment & Plan Assessment/Plan (1) Status post total right knee replacement: PLAN: Plan 1. Status post right total knee replacement for osteoarthritis ? Pain management per primary ? PT/OT 2. HTN/HLD/A. fib ? Blood pressures are stable can resume all of his home blood pressure medic patients ?Renal function is stable, leukocytosis is reactive ? Continue with Eliquis 3. DM2 ?Can resume his oral medications ? Start him on a sliding scale insulin with Accu-Cheks ? We will monitor make adjustments 4. Anxiety/depression ? Stable ? Continue with his home medications Okay for discharge, will sign off DVT: Eliquis Charges/Coding Visit Charges OBSV E&M: 39898 Subsequent observation care L2
[2022-04-22 12:25] LABS: Bedside Glucose 288 mg/dL (74-106)
--- NOTE | 2022-04-28 14:07 | PCM.DC.SUM ---
Providers Date of Admission: 04/21/22 Primary Care Physician: [facility] Consultations 04/21/22 10:02 Consult: Hospitalist Routine Consulting Provider: José Antonio Wilson Reason for Consult: post op TKA medical management EMERGENT Consult: No MD Notified: Yes Date Notified: 04/21/22 Time Notified: 10:03 Method of Notification: Answering Service Reason For Visit: RT TOTAL KNEE W JOE Diagnosis Discharge Diagnosis (1) Status post total right knee replacement: Status: Acute Code(s): Z96.651 - Presence of right artificial knee joint Plan: POD#1 s/p right robotic assisted total knee arthroplasty - Pain control - Medicine following for medical management - PT/OT-weightbearing as tolerated, range of motion as tolerated right lower extremity - DVT PPX -restart home Eliquis, aspirin, SCDs, KVNG hose, early mobilization - Case management - D/C planning Medications at Discharge Home Medications montelukast 10 mg tablet 10 mg PO QHS allergies 12/04/14 atorvastatin 80 mg tablet 40 mg PO QHS cholesterol 10/22/16 aspirin 81 mg chewable tablet 81 mg PO DAILY@0800 #30 tabs 02/20/21 metformin 1,000 mg tablet 1,000 mg PO BID 09/20/21 metoprolol succinate 100 mg tablet,extended release 24 hr 100 mg PO DAILY 09/20/21 olmesartan 40 mg tablet 40 mg PO DAILY 09/20/21 pioglitazone 30 mg tablet 30 mg PO DAILY 09/20/21 amlodipine 10 mg tablet 10 mg PO DAILY #30 tabs 03/01/22 apixaban 5 mg tablet (Eliquis) 5 mg PO BID 30 days #60 tabs 03/01/22 bupropion HCl 100 mg tablet 100 mg PO DAILY 04/12/22 trazodone 100 mg tablet 100 mg PO QHS 04/12/22 acetaminophen 500 mg tablet 1,000 mg PO Q8 14 days #84 tabs 04/22/22 oxycodone 5 mg tablet 5 - 10 mg PO Q4H PRN PRN Pain Score 4-10 7 days #56 tabs 04/22/22 sennosides 8.6 mg-docusate sodium 50 mg tablet (Stool Softener-Stimulant Laxative) 2 tab PO BID 7 days #28 tabs 04/22/22 Hospital Course Summary of Care Provided Minutes Spent on Discharge: 15 Hospital Course: Patient underwent uncomplicated right total knee arthroplasty performed on 04/21/2022. He was placed in observation overnight for medical monitoring and early convalescence. A hospitalist consult was placed. Patient did well in postoperative period and was able to be discharged home on postoperative day #1. No medical or surgical complications were encountered throughout his stay. He worked well with physical occupational therapies prior to discharge. Physical Exam Narrative General - A&Ox3, NAD. VSS/AF Right lower extremity -incisional dressing C/D/I. SILT Sural, Saphenous, SPN, DPN, Tibial N. distributions. DP, PT 2+. BCR. DF, PF, EHL 5/5. No calf TTP. Weight / BMI Weight Weight: 249 lb 1.957 oz Body Mass Index (BMI) 38.9 ABG / Lab / Microbiology Data Result Diagrams: 04/22/22 04:42 04/22/22 04:42 Microbiology: Microbiology 04/14/22 09:32 Nasal Secretion Nasal Screen MRSA/MSSA - Final Meaningful Use Info Meaningful Use Diagnoses (Choose all that apply): None applicable Discharge Plan Admission Admit Date/Time: 04/21/22 10:18 Primary Reason for Your Visit: Right knee replacement Attending Provider: José Antonio Lewis [facility] Providers: José Antonio Wilson Instructions Additional Instructions / Restrictions: Follow preprinted instructions from your surgeons office. Use CPAP at night at home upon discharge Discharge Orders/Prescriptions Prescriptions: New sennosides-docusate sodium [Stool Softener-Stimulant Laxat] 8.6-50 mg Tablet 2 tab PO BID 7 Days Qty: 28 0RF acetaminophen 500 mg Tablet 1,000 mg PO Q8 14 Days Qty: 84 0RF oxycodone 5 mg Tablet 5 - 10 mg PO Q4H PRN PRN (Reason: Pain Score 4-10) 7 Days Qty: 56 0RF Continued metformin 1,000 mg tablet 1,000 mg PO BID pioglitazone 30 mg tablet 30 mg PO DAILY olmesartan 40 mg tablet 40 mg PO DAILY metoprolol succinate 100 mg tablet extended release 24 hr 100 mg PO DAILY montelukast 10 MG tablet 10 mg PO QHS atorvastatin 80 MG tablet 40 mg PO QHS aspirin 81 mg Tablet,Chewable 81 mg PO DAILY@0800 Qty: 30 0RF Eliquis 5 mg tablet 5 mg PO BID 30 Days Qty: 60 0RF Rx Instructions: Pt already has supply amlodipine 10 mg tablet 10 mg PO DAILY Qty: 30 0RF bupropion HCl 100 mg Tablet 100 mg PO DAILY trazodone 100 mg Tablet 100 mg PO QHS Discontinued amlodipine 5 mg tablet 5 mg PO DAILY Qty: 30 0RF Other Ambulatory Orders: 12 Lead EKG (Routine) Timeframe: [id number] Location: None Selected Ordered By: Dr. José Antonio Lewis Referrals / Follow Up: José Antonio Lewis DO [Med Staff - Active Staff] - [facility] [Primary Care Provider] - Disposition Disposition (needs filled in before D/C Order can be placed): Home, Self Care
== END 2022-04-22 13:40 | disposition home or self-care (01) ==
LOC: ACINP 10:58 → SDC 10:59 → MS3 10:59
PROVIDERS: Anesthesiology; Admitting Provider Student in an Organized Health Care Education/Training Program; Referring Provider Student in an Organized Health Care Education/Training Program; Visit Provider Student in an Organized Health Care Education/Training Program
PROC: 0SRC0JZ Replacement of Right Knee Joint with Synthetic Substitute, Open Approach (ICD-10-PCS; CPT 27447; principal; 2022-04-21 07:00)
DX: M17.11 Unilateral primary osteoarthritis, right knee (principal); E11.69 Type 2 diabetes mellitus with other specified complication; I48.91 Unspecified atrial fibrillation; M21.161 Varus deformity, not elsewhere classified, right knee; I10 Essential (primary) hypertension; E66.8 Other obesity; Z68.38 Body mass index [BMI] 38.0-38.9, adult; E78.5 Hyperlipidemia, unspecified; F41.9 Anxiety disorder, unspecified; F32.A Depression, unspecified; Z79.899 Other long term (current) drug therapy; Z23 Encounter for immunization; Z79.84 Long term (current) use of oral hypoglycemic drugs; Z79.82 Long term (current) use of aspirin; Z79.01 Long term (current) use of anticoagulants
CPT/HCPCS: 27447; 01402; S2900; 64447; 90686; 36415; 71046; 80048; 82040; 82962; 83036; 83735; 85025; 85027; 87081; 88305; 88311; 93005; 96365; 96366; 97110; 97116; 97162; 97166; 97530; 97535; 99218; 99251; C1776; J7120; A4216; G0378; G0463; J2405

== ENCOUNTER → 2022-04-25 | Outpatient (CLI) | payer MEDICAID, SELFPAY ==
--- NOTE | 2022-04-25 15:02 | VDLE_ITS ---
Reason For Study: LEG PAIN RIGHT LEFT GSV is normal. CFV is compressible, spontaneous, phasic, CFV is compressible, spontaneous, phasic, competent, and demonstrates normal competent and demonstrates normal augmentation. augmentation. FV is compressible, spontaneous, phasic, competent and demonstrates normal augmentation. POP V is compressible, spontaneous, phasic, competent and demonstrates normal augmentation. T/P Trunk is compressible. PTV is compressible. RT PerV is compressible. Procedure This is a venous duplex using B-mode, color flow and spectral Doppler. Exam performed in department. The exam was diagnostic. A preliminary report was called and/or faxed to Dr. May's office. VL/Venous Duplex US, Unilateral Interpretation Summary Deep veins of the right lower extremity are patent and compressible segmentally . There is no evidence of right lower extremity deep vein thrombosis. Valvular competence naima ears intact within the proximal deep venous system on the right . The right great saphenous vein a ppears patent and compressible segmentally. Ordering Physician: Wood May Referring Physician: Wood May Performed By: Van Pearce RVDanilo
== END | disposition home or self-care (01) ==
LOC: CVS 14:49
PROVIDERS: Referring Provider Orthopaedic Surgery; Visit Provider Orthopaedic Surgery
DX: M79.604 Pain in right leg (principal)
CPT/HCPCS: 93971

== ENCOUNTER → 2022-06-20 | Outpatient (CLI) | payer MEDICAID, SELFPAY ==
[2022-06-20 16:37] LABS: Hematocrit 40.9 % (40-54); Hemoglobin 13.9 g/dL (13.0-16.5); Mean Corpuscular Volume 88.3 fL (80-94); Mean Platelet Vol. 10.3 fl (6.2-12.0); Platelet Count 283 K/mm3 (150-450); RBC Distribution Width CV 12.6 % (11.6-14.6); RBC Distribution Width SD 40.9 fl (35.1-43.9); Red Blood Count 4.63 M/mm3 (4.6-6.2); White Blood Count 7.8 K/mm3 (4.4-11.0)
[2022-06-20 17:16] LABS: ALB/GLOB Ratio 1.1 RATIO (0.9-2.4); AST(SGOT) 20 U/L (15-37); Alanine Aminotransfer ALT/SGPT 38 U/L (16-61); Alkaline Phosphatase 128 U/L (45-117); Anion Gap 7 (5-15); BUN 17 mg/dL (7-18); BUN/Creat Ratio 14.4 RATIO (10-20); Calcium,Total 9.4 mg/dL (8.5-10.1); Chloride 105 mmol/L (98-107); Creatinine, Serum 1.18 mg/dL (0.70-1.30); EST Glomerular Filtration Rate 67 mL/min (>60); Est Glom Filt Rate - Afr Amer 81 mL/min (>60); Globulin 3.7 g/dL (2.2-4.2); Glucose 143 mg/dL (74-106); Protein, Total 7.7 g/dL (6.4-8.2); Sodium Level 141 mmol/L (136-145)
[2022-06-20 19:23] LABS: Hemoglobin A1c 6.1 % (3.8-5.6)
== END | disposition home or self-care (01) ==
LOC: LAB 14:57
PROVIDERS: Referring Provider Nurse Practitioner Family; Visit Provider Nurse Practitioner Family
DX: E11.9 Type 2 diabetes mellitus without complications (principal)
CPT/HCPCS: 36415; 80053; 83036; 85027